=== PATIENT | male | born 1960 | race Caucasian/White ===

== ENCOUNTER 2018-03-08 01:49 | Outpatient (CLI) | payer BC, SELFPAY ==
[2018-03-08 13:06] LABS: HCT 43.2 % (40.0-50.0); HGB 14.5 g/dL (13.5-17.5); Mean Corp. HGB Concentration 33.6 g/dL (32.0-36.0); Mean Corpuscular Hemoglobin 28.3 pg (27.0-33.0); Mean Corpuscular Volume 84.4 fL (80-95); Mean Platelet Volume 11.7 fL (8.0-11.0); Platelet Count 196 x1000/uL (130-400); RBC 5.12 m/cumm (4.50-6.00); RBC Distribution Width 12.7 % (11.8-14.1); White Blood Cell Count 6.08 k/cumm (4.4-10.8)
[2018-03-08 13:44] LABS: Ferritin 78 ng/mL (8-388)
[2018-03-09 09:56] LABS: PSA, Screening 0.7 ng/ml (0-3.5)
== END 2018-03-08 02:09 ==
PROVIDERS: PCP Emergency Medicine; Visit Provider Emergency Medicine
DX: E03.9 Hypothyroidism, unspecified (principal); D64.9 Anemia, unspecified
CPT/HCPCS: 36415; 84153; 85027; 82728; 84443

== ENCOUNTER 2019-03-04 09:35 | Outpatient (CLI) | payer BC, SELFPAY ==
[2019-03-04 11:15] LABS: Ferritin 27 ng/mL (26-388); TSH (W/Ref FT4) 1.07 uIU/mL (0.36-3.74)
[2019-03-07 10:19] LABS: PSA, Screening 0.7 ng/mL (0.0-3.5)
== END 2019-03-04 09:55 ==
PROVIDERS: PCP Emergency Medicine; Visit Provider Internal Medicine
DX: D45 Polycythemia vera (principal); R00.2 Palpitations; R10.9 Unspecified abdominal pain
CPT/HCPCS: 36415; 84153; 82728; 84443

== ENCOUNTER 2019-03-08 00:54 | Outpatient (CLI) | payer BC, SELFPAY ==
--- NOTE | 2019-03-08 08:56 | DI.US_ITS ---
EXAM: US ABDOMEN CLINICAL HISTORY: pain R10.9 ABDOMINAL PAIN TECHNIQUE: Ultrasound abdomen performed using standard protocol. COMPARISON: No exams were available for comparison FINDINGS: LIVER: Liver measures 14 cm in length and shows diffusely increased echogenicity, consistent with fat ty infiltration. No focal liver lesions are seen. GALLBLADDER: No evidence of cholelithiasis. No evidence of wall thickening. No pericholecystic fluid identified. KIDNEYS: Kidneys are symmetric in size. No evidence of renal calculi. No evidence of hydronephrosis. No renal mass or cyst identified. BILIARY SYSTEM: No intrahepatic or extrahepatic biliary ductal dilation. ST'S SIGN: Negative. PANCREAS: Normal where visualized. SPLEEN: Not enlarged. ABDOMINAL AORTA AND IVC: Visualized portions normal caliber. ASCITES: None seen. IMPRESSION: Hepatic steatosis. No acute abnormality.
== END 2019-03-08 01:14 ==
PROVIDERS: PCP Emergency Medicine; Visit Provider Internal Medicine
DX: R10.9 Unspecified abdominal pain (principal); K76.0 Fatty (change of) liver, not elsewhere classified
CPT/HCPCS: 76700

== ENCOUNTER 2019-05-10 00:59 | Outpatient (CLI) | payer BC, SELFPAY ==
[2019-05-10] MEDS: Omnipaque 350 MG/ML 50 ML BTL PO (07:33)
[2019-05-10 07:46] LABS: BUN 17 mg/dL (7-18)
--- NOTE | 2019-05-10 08:28 | DI.CT_ITS ---
EXAM: CT ABDOMEN PELVIS W CLINICAL HISTORY: pain at Right edge of rectus muscle b/l arcuate li, ABD PAIN, UMBILICAL HERNIA, R1 0.9,K42.9 TECHNIQUE: Post IV and oral contrast. COMPARISON: No exams were available for comparison FINDINGS: Sternal wires are noted. A mitral valve prosthesis is seen. The lung bases are clear. The liver s hows mild to moderate diffuse fatty infiltration. There is a cyst in the upper left lobe. The gallb ladder, spleen, pancreas, kidneys and adrenals are unremarkable. No abdominal wall hernias are seen. The rectus muscles appear symmetric. The bladder and prostate are unremarkable. The aorta is norm al in diameter. IMPRESSION: Fatty infiltration of the liver. No abnormality is seen involving the rectus muscles.
[2019-05-10] MEDS: Breeza Beverage 473 ML BTL PO ×2 (08:35→08:36)
[2019-05-10] MEDS: Omnipaque 350 MG/ML 100 ML BTL IJ (08:36)
[2019-05-10] MEDS: Normal Saline - Diluent 50 ML VIAL IV (08:37)
[2019-05-11 12:02] LABS: Iron 55 ug/dL (65-175); Total Iron Binding Capacity 428 ug/dL (250-450); Transferrin Sat 13 % (20-55)
[2019-05-11 12:13] LABS: Ferritin 56 ng/mL (26-388)
[2019-05-11 15:25] LABS: ANA Interpretation Negative (Negative)
[2019-05-12 11:57] LABS: dsDNA Ab, IgG <12.3 IU/mL (<30.0)
[2019-05-12 13:01] LABS: RNP Ab, IgG 2.1 Units (<20.0); SS-A Antibody 2.3 Units (<20.0); Sm (Smith) Ab, IgG 1.6 Units (<20.0)
[2019-05-12 15:23] LABS: Smooth Muscle Ab Screen Negative (Negative)
[2019-05-13 10:04] LABS: Anti-DNase B Titer <81 U/mL (0 - 300)
== END 2019-05-10 01:19 ==
PROVIDERS: PCP Emergency Medicine; Visit Provider Surgery
DX: R10.9 Unspecified abdominal pain (principal); K76.0 Fatty (change of) liver, not elsewhere classified; K42.9 Umbilical hernia without obstruction or gangrene; Z95.2 Presence of prosthetic heart valve; K76.89 Other specified diseases of liver; D50.9 Iron deficiency anemia, unspecified; D50.8 Other iron deficiency anemias; I34.0 Nonrheumatic mitral (valve) insufficiency; M05.9 Rheumatoid arthritis with rheumatoid factor, unspecified; Z01.84 Encounter for antibody response examination
CPT/HCPCS: 84520; 86215; 74177; 82565; 82728; 83540; 83550; 85018; 86038; 86225; 86235; 86255; J3490; Q9967

== ENCOUNTER 2019-05-30 06:17 | Day surgery (SDC) | payer BC, SELFPAY ==
[2019-05-30 06:31] VITALS: BP 134/89; PULSE 80; RESP 16; TEMP 36.4; O2SAT 98
[2019-05-30] MEDS: Lactated Ringers 1,000 ML 100 ML IV (06:56)
--- NOTE | 2019-05-30 08:06 | W.COLOREPORT ---
Date of service: 05/30/19 Time of Service: 08:07 Colonoscopy Report Date of procedure: 05/30/19 Pre-op diagnosis general: CRC screen Post-op diagnosis procedure note: other (Few small scattered diverticula no consequence confined to the sigmoid colon) Procedure: ce Surgeon: Pat Baeza Anesthesia proc note operative: GETA Estimated blood loss (mL): 0 Pathology: none sent Complications: None Disposition: same day Prep: Miralax/Dulcolax Retraction Time: 10 Procedure Description: After informed consent was obtained the patient was taken to the procedure room and placed in a left decubitous position. Monitors were applied and a time out was done. The patients name, date of , procedure, allergies to medications and metal in their body was reviewed. The patient was then sedated. Once sedated and comfortable a rectal exam was done. External exam was normal. Internal exam revealed a normal sphincter tone and no palpable masses. The scope was then introduced and retrofelexed. no internal hemorrhoids were identified. The scope was then advanced to the cecum w/out difficulty. The TI and appendiceal orifice were identified. The prep was good. The scope was then slowly retracted over 10 minutes back into the rectum. Polyps were removed at no polyps or AVMs. The mucosa is pink and healthy. There are a few small scattered diverticula confined to the sigmoid colon. There is no signs of active bleeding or infection. The scope was removed and the patient was woken up and taken back to Same day surgery in stable condition. The patient tolerated the procedure well and there were no immediate complications. Follow up: The patient should follow up in 10 years unless they develop changes in bowel habits or other new gastrointestinal complaints.
--- NOTE | 2019-05-30 08:08 | W.PM.DSUDISC ---
Discharge Plan Disposition Patient Disposition: HOME Condition: Good Discharge Details Reason For Visit: colon scope Attending Provider: Pat Baeza Primary Care Provider: David Shaffer Home Meds and New Rx's Prescriptions: No Action amoxicillin 500 mg capsule 3,000 mg PO DIRECTED Qty: 20 RF: 1 Poly-Iron 150 Forte 150-25-1 mg-mcg-mg capsule 1 cap PO DAILY Qty: 90 RF: 3 levothyroxine [Synthroid] 88 mcg tablet 88 mcg PO DAILY Qty: 90 RF: 3 ascorbic acid (vitamin C) [Vitamin C] 500 MG tablet 500 mg PO DAILY RF: 0 lorazepam [Ativan] 1 MG tablet 1 mg PO DIRECTED Qty: 12 RF: 1 Xeljanz 5 MG tablet 5 mg PO BID RF: 0 polyethylene glycol 3350 17 gram/dose powder 238 g PO ONCE Qty: 238 RF: 0 bisacodyl [Dulcolax (bisacodyl)] 5 mg tablet,delayed release (DR/EC) 5 mg PO ONCE Qty: 4 RF: 0 Multi-Vitamin HP/Minerals Capsule 1 cap PO DAILY RF: 0 Discharge Instructions Additional Instructions: Findings: few small scattered divertic essential normal cont. Iron supplements if right sided pain b/c worse- call my office and will schedule HIDA scan Follow up:repeat 10 years time Please call if you develop: fevers >101.5 Nausea or Vomiting Abdominal pain that is not transient DAY SURGERY UNIT POST COLONOSCOPY INSTRUCTIONS 1. Because there will be medication in your system for the next 24 hours, you may feel a little sleepy. Your coordination will be affected. Therefore: a. Do not drive or operate dangerous equipment for 24 hours. b. Do not drink alcohol beverages for 24 hours (not even beer). c. Plan to go home and rest for the day. 2. Generally there are no restrictions on your activity after a day or so has gone by, but you may feel a bit fatigued for a few days. 3 After you arrive home you may have a light meal and return to a normal diet as you can tolerate it without feeling sick to your stomach. 4. After surgery, you may feel pain or discomfort. This should be only transient, but if it persists please contact your doctor. 5. If there are any questions regarding the findings of your procedure, please feel free to contact your doctor. 6. If you are unable to contact your doctor with a problem, contact the hospital at [phone]. 3. Continue all your regular medications unless directed otherwise. I understand the above instructions and have no questions. Signature of Patient or Responsible Adult Escort Date/Time Name of Responsible Adult Escort Signature of Nurse Date/Time Activity:: No lifting over 20 pounds or strenuous activity x24 hours. Diet:: Small light meals x24 hours Discharge Orders Discharge Orders: Discharge Order (Routine); Ordered 05/30/19 Ordered By: Pat Baeza DS: Diagnosis Discharge Diagnosis (1) Iron deficiency anemia: Status: Acute
[2019-05-30] MEDS: Normal Saline 1,000 ML 80 ML IV (08:30)
[2019-05-30] MEDS: IRON SUCROSE COMPLEX 200 MG in Normal Saline 100 ML 400 MG IVPB (08:52)
[2019-05-30 09:35] VITALS: BP 120/72; PULSE 67; RESP 16; TEMP 37; O2SAT 97
== END 2019-05-30 09:55 | disposition home or self-care (01) ==
PROVIDERS: PCP Emergency Medicine; Visit Provider Surgery
PROC: 0DJD8ZZ Inspection of Lower Intestinal Tract, Via Natural or Artificial Opening Endoscopic (ICD-10-PCS; CPT 45378; principal; 2019-05-30 07:30)
DX: Z12.11 Encounter for screening for malignant neoplasm of colon (principal); D50.9 Iron deficiency anemia, unspecified; K57.30 Diverticulosis of large intestine without perforation or abscess without bleeding
CPT/HCPCS: 45378; 96365; J1756; J2001

== ENCOUNTER 2019-09-06 01:53 | Outpatient (CLI) | payer BC, SELFPAY ==
[2019-09-06 14:12] LABS: HGB 15.2 g/dL (13.5-17.5); Mean Corp. HGB Concentration 35.3 g/dL (32.0-36.0); Mean Corpuscular Hemoglobin 29.6 pg (27.0-33.0); Mean Corpuscular Volume 83.7 fL (80-95); Mean Platelet Volume 11.1 fL (8.0-11.0); Platelet Count 235 x1000/uL (130-400); RBC 5.14 m/cumm (4.50-6.00); RBC Distribution Width 12.5 % (11.8-14.1); White Blood Cell Count 6.14 k/cumm (4.4-10.8)
[2019-09-06 15:04] LABS: Ferritin 80 ng/mL (26-388)
[2019-09-06 15:06] LABS: Iron 151 ug/dL (65-175); Total Iron Binding Capacity 388 ug/dL (250-450); Transferrin Sat 39 % (20-55)
[2019-09-06 15:14] LABS: TSH 0.34 uIU/mL (0.36-3.74)
== END 2019-09-06 02:13 ==
PROVIDERS: PCP Emergency Medicine; Visit Provider Emergency Medicine
DX: D50.9 Iron deficiency anemia, unspecified (principal); E03.9 Hypothyroidism, unspecified; I34.0 Nonrheumatic mitral (valve) insufficiency
CPT/HCPCS: 36415; 85027; 82728; 83540; 83550; 84443

== ENCOUNTER 2019-09-06 01:57 | Outpatient (CLI) | payer BC, SELFPAY ==
--- NOTE | 2019-09-09 09:01 | W.HOLTRPT ---
Date of service: 09/09/19 Time of Service: 09:01 Holter Monitor Report Holter Monitor Note: The patient underwent Holter monitoring for a period of 1 day 17 hours and 56 minutes Rhythm throughout was sinus. Average heart rate was 77 bpm, minimum 55 and peak 110. There was no atrial fibrillation. There were rare atrial premature beats There were frequent ventricular ectopic beats, 7.2% of total. There were rare couplets and 2 triplets. There were were 2 runs of accelerated idioventricular rhythm, 13 and 14 beats in duration, rate 89 There were no pauses. There was no significant bradycardia
== END 2019-09-06 02:17 ==
PROVIDERS: PCP Emergency Medicine; Visit Provider Emergency Medicine
DX: I34.0 Nonrheumatic mitral (valve) insufficiency (principal); D50.9 Iron deficiency anemia, unspecified
CPT/HCPCS: 93225

== ENCOUNTER 2019-09-08 15:36 | Outpatient (CLI) | payer BC, SELFPAY | END 2019-09-08 15:56 | PROVIDERS: PCP Emergency Medicine; Visit Provider Emergency Medicine | DX: I47.1 Supraventricular tachycardia (principal); I34.0 Nonrheumatic mitral (valve) insufficiency; D50.9 Iron deficiency anemia, unspecified | CPT/HCPCS: 93226 ==

== ENCOUNTER 2019-10-18 13:28 | Outpatient (CLI) | payer BC, SELFPAY ==
--- NOTE | 2019-10-18 13:15 | RT.EKG_ITS ---
APPROVED REPORT Exam: Resting ECG Patient Location: O HR:82 bpm ECG Measurements Heart Rate 82 AXIS NJ 182 P 50 QRSd 102 QRS 38 QT 366 T 61 QTc 429 <Conclusion> Age and gender not entered, assume 51 yo male for purpose of ECG interpretation Sinus rhythm...normal P axis, V-rate 60- 99 Ventricular premature complex...V complex w/ short R-R interval Probable left atrial enlargement...P >50mS, <-0.10mV V1
== END 2019-10-18 13:48 ==
PROVIDERS: PCP Emergency Medicine; Visit Provider Internal Medicine Cardiovascular Disease
DX: I49.9 Cardiac arrhythmia, unspecified (principal)

== ENCOUNTER 2019-11-23 02:07 | Outpatient (CLI) | payer BC, SELFPAY ==
--- NOTE | 2019-11-23 13:58 | DI.US_ITS ---
APPROVED REPORT EXAM: Comprehensive 2D, Doppler, and color-flow Echocardiogram Patient Location: Out-Patient Drier Attendant: Amanda Johnson RDCS (AE) Indications: Mitral Valve Repair Other Information Study Quality: Good Conclusion Left Ventricle : The left ventricle is normal size. The left ventricular systolic function is normal. The left ventricular ejection fraction is within the normal range. There is normal left ventricular wall thickness. There is normal LV segmental wall motion. The left ventricular diastolic function is normal. LVEF is 60%. Right Ventricle : The right ventricle is normal size. The right ventricular systolic function is norm al. The RVSP is 30.6 mmHg. Atria : The left atrium size is normal. The right atrium size is normal. Aortic Valve : The aortic valve is normal in structure. Aortic valve is trileaflet. There is no aorti c valvular stenosis. No aortic regurgitation is present. Mitral Valve : Mitral annuloplasty changes are present. No evidence of mitral valve stenosis. Trace m itral regurgitation. Great Vessels : The aortic root is normal in size. The ascending aorta is normal in size. Aortic arch is normal in caliber. IVC is normal in size and collapses >50% with inspiration. There is no prior study available for comparison. Wall motion Left Ventricle The left ventricle is normal size. The left ventricular systolic function is normal. The left ventric ular ejection fraction is within the normal range. There is normal left ventricular wall thickness. T here is normal LV segmental wall motion. The left ventricular diastolic function is normal. There is no ventricular septal defect visualized. LVEF is 60%. Right Ventricle The right ventricle is normal size. The right ventricular systolic function is normal. The RVSP is 30 .6 mmHg. Atria The left atrium size is normal. The right atrium size is normal. The interatrial septum is intact wit h no evidence for an atrial septal defect. Aortic Valve The aortic valve is normal in structure. Aortic valve is trileaflet. There is no aortic valvular sten osis. No aortic regurgitation is present. Mitral Valve Mitral annuloplasty changes are present. No evidence of mitral valve stenosis. Trace mitral regurgita tion. Tricuspid Valve The tricuspid valve is normal in structure. There is no tricuspid valve stenosis. Mild tricuspid regu rgitation. Pulmonic Valve The pulmonary valve is normal in structure. There is no pulmonic valvular stenosis. Moderate pulmonic regurgitation. Great Vessels The aortic root is normal in size. The ascending aorta is normal in size. Aortic arch is normal in ca liber. IVC is normal in size and collapses >50% with inspiration. Pericardium There is no pericardial effusion. 2D Dimensions IVSD d PLAX 0.94 cm M: 0.6-1.2 LV Vol A2C d MOD 107.5 mL LVPW d PLAX 0.93 cm M: 0.6 - 1.2 LV Vol A4C d MOD 141.4 mL LVID d PLAX 5.38 cm M: 4.2 - 5.8 LA vol/ BSA A2C s A-L 24.8 mL/m2 LVDs 3.80 cm M: 2.5 - 4.0 LA vol/ BSA A4C s A-L 21.5 mL/m2 Ao Root d 3.52 cm M: 3.1 - 3.7 LA Vol/ BSA Biplane s A-L 24.0 mL/m2 RA Area A4C 17.71 cm2 LA Area A4C s MOD 16.98 cm2 RA Vol/ BSA A4C s A-L 24.9 mL/m2 LA Area A2C s MOD 18.99 cm2 Ao Asc Diam d 3.25 cm M: 2.6 - 3.4 LV EF A4C MOD 57.9 % LV EF Teichholz 55.3 % LV EF A2C MOD 63.4 % LVEF (Barrow's) 60.61 % M: 52 - 72 LV EF Biplane MOD 60.6 % LV Volume 90.80 mL M: 62 - 150 SV 74.86 mL LV Volume Index 42.83 mL/m2 M: 34 - 74 SV Index 35.21 mL/m2 LV Vol Biplane MOD 123.5 mL FS 29.05 % LV Diastology MV E' medial 0.086 (>0.07 m/s) E/A Ratio 0.9 LV E/e MED 14.90 (<14) MV E Vmax 1.29 (0.4-1.3 m/s) MV E' lateral 0.102 (>0.1 m/s) MV A Vmax 1.45 (0.4-1.3 m/s) LV E/e LAT 12.65 (<14) MV E/A Ratio 0.87 MV E/E' medial 14.92 MV E/E' lateral 12.66 Aortic Valve LVOT Area 3.63 cm2 AoV Area Vmax 3.02 cm2 LVOT Vmax 1.13 m/s AoV Area/ BSA (Vmax) 1.42 cm2/m2 LVOT Mean Rj. 0.74 m/s BREANNE Mean Rj. 2.91 cm2 LVOT Peak Grad 5.1 mmHg BREANNE Mean Rj. Index 1.37 cm2/m2 LVOT Mean Grad 2.6 mmHg LVOT VTI 0.247 m LVOT Diam s 2.15 cm AoV Vmax 1.36 m/s Velocity Ratio 0.83 AoV Mean Rj. 0.92 m/s AoV Peak Grad 7.4 mmHg LVOT SV 89.79 mL AoV Mean Grad 3.7 mmHg AoV VTI 0.312 m AoV Area VTI 2.88 cm2 AoV Area/ BSA (VTI) 1.35 cm/m2 Mitral Valve MV DT 283 (160-240 msec) MV PHT 82 msec MV Area PHT 2.68 cm2 MV VTI 0.588 m MV Area VTI 1.53 (4.0-6.0 cm2) Pulmonary Valve PV Vmax 1.42 (0.5-1.5 m/s) RVOT Peak Gr. 1.22 mmHg PV Peak Grad 8.0 mmHg RVOT Mean Gr. 0.60 mmHg PV Mean Grad 4.1 mmHg RVOT VTI 0.097 m PV VTI 0.272 m RVOT Vmax 0.55 m/s Tricuspid Valve TR Peak Grad 27.6 mmHg TR Vmax 2.63 m/s RA Pressure 3.00 mmHg RVSP (TR) 30.6 mmHg
== END 2019-11-23 02:27 ==
PROVIDERS: PCP Emergency Medicine; Visit Provider Internal Medicine Cardiovascular Disease
DX: Z95.4 Presence of other heart-valve replacement (principal); Z98.890 Other specified postprocedural states
CPT/HCPCS: 93306

== ENCOUNTER 2020-01-09 03:06 | Outpatient (CLI) | payer BC, SELFPAY ==
[2020-01-09 09:10] LABS: Abs Immature Grans 0.02 10^3/uL (0.0-0.06); Absolute Basophil Count 0.02 10^3/uL (0.0-0.2); Absolute Eosinophil Count 0.04 10^3/uL (0.0-0.7); Absolute Lymphocyte Count 1.24 10^3/uL (1.2-3.4); Absolute Monocyte Count 0.48 10^3/uL (0.1-0.8); Absolute Neutrophil Count 3.58 10^3/uL (1.2-6.7); Basophils % 0.4; Eosinophils % 0.7; HCT 44.6 % (40.0-50.0); HGB 15.1 g/dL (13.5-17.5); Immature Grans % 0.4; MCH 28.8 pg (27.0-33.0); MCHC 33.9 % (32.0-36.0); MPV 10.8 fL (8.0-11.0); Monocytes % 8.9; Neutrophils % 66.6; Nucleated RBC 0 %; Platelet Count 207 10^3/uL (130-400); RBC 5.25 10^6/uL (4.36-5.78); RDW 11.9 % (11.8-14.1); RDW-SD 36.1 fL; WBC 5.38 10^3/uL (4.4-10.8)
[2020-01-09 10:35] LABS: ALT 35 U/L (16-63); AST 32 U/L (15-37); Albumin 4.2 g/dL (3.4-5.0); Alkaline Phosphatase 102 U/L (46-116); Anion Gap 5.7 mmol/L (3-11); BUN 16 mg/dL (7-18); Bilirubin, Total 0.9 mg/dL (0.2-1.0); CO2 29.3 mmol/L (21.0-32.0); CREATININE 0.89 mg/dL (0.70-1.30); Calcium 9.3 mg/dL (8.5-10.1); Calculated LDL 146 mg/dL (<100); Chloride 106 mmol/L (98-107); Cholesterol 223 mg/dL (<200); Glucose 91 mg/dL (74-106); HDL Cholesterol 62 mg/dL (40-60); Potassium 4.2 mmol/L (3.5-5.1); Sodium 141 mmol/L (136-145); Total Protein 6.8 g/dL (6.4-8.2); Triglyceride 76 mg/dL (<150)
== END 2020-01-09 03:26 ==
PROVIDERS: PCP Emergency Medicine; Visit Provider Nurse Practitioner Family
DX: M05.79 Rheumatoid arthritis with rheumatoid factor of multiple sites without organ or systems involvement (principal); Z79.899 Other long term (current) drug therapy
CPT/HCPCS: 36415; 80053; 80061; 85025

== ENCOUNTER 2020-01-19 01:30 | Outpatient (CLI) | payer BC, SELFPAY ==
[2020-01-19 13:43] LABS: Hemoglobin A1C 5.4 % (<5.7)
[2020-01-19 14:29] LABS: ALT 31 U/L (16-63); AST 23 U/L (15-37); Albumin 4.1 g/dL (3.4-5.0); Alkaline Phosphatase 124 U/L (46-116); Anion Gap 6.8 mmol/L (3-11); BUN 13 mg/dL (7-18); Bilirubin, Total 0.5 mg/dL (0.2-1.0); CO2 31.2 mmol/L (21.0-32.0); CREATININE 0.88 mg/dL (0.70-1.30); Calcium 9.3 mg/dL (8.5-10.1); Chloride 104 mmol/L (98-107); Glucose 108 mg/dL (74-106); Potassium 4.2 mmol/L (3.5-5.1); Sodium 142 mmol/L (136-145); Total Protein 6.7 g/dL (6.4-8.2)
[2020-01-19 14:30] LABS: C-Reactive Protein < 0.05 mg/dL (0.0-0.3)
[2020-01-19 15:45] LABS: Vitamin B12 458 pg/mL (193-986)
[2020-01-20 15:31] LABS: Albumin 67.8 % (55.8-66.1); Comment (See Note); Total Protein 6.8 g/dL (6.3-8.2)
[2020-01-20 16:22] LABS: Immunotyping, Serum (See Note)
[2020-01-24 13:25] LABS: Methylmalonic Acid 0.19 nmol/mL (<=0.40)
== END 2020-01-19 01:50 ==
PROVIDERS: PCP Emergency Medicine; Visit Provider Emergency Medicine
DX: G62.9 Polyneuropathy, unspecified (principal)
CPT/HCPCS: 36415; 80053; 80186; 82607; 83036; 84165; 86140; 86320

== ENCOUNTER 2020-05-23 02:56 | Outpatient (CLI) | payer BC, SELFPAY ==
[2020-05-23 10:39] LABS: Abs Immature Grans 0.04 10^3/uL (0.0-0.06); Absolute Basophil Count 0.02 10^3/uL (0.0-0.2); Absolute Eosinophil Count 0.04 10^3/uL (0.0-0.7); Absolute Lymphocyte Count 1.27 10^3/uL (1.2-3.4); Absolute Monocyte Count 0.55 10^3/uL (0.1-0.8); Absolute Neutrophil Count 3.76 10^3/uL (1.2-6.7); Basophils % 0.4; Eosinophils % 0.7; HCT 44.4 % (40.0-50.0); Immature Grans % 0.7; Lymphocytes % 22.4; MCH 29.1 pg (27.0-33.0); MCHC 33.8 % (32.0-36.0); MPV 11.2 fL (8.0-11.0); Monocytes % 9.7; Neutrophils % 66.1; Nucleated RBC 0 %; Platelet Count 206 10^3/uL (130-400); RBC 5.16 10^6/uL (4.36-5.78); RDW 11.9 % (11.8-14.1); RDW-SD 37.9 fL; WBC 5.68 10^3/uL (4.4-10.8)
[2020-05-23 11:28] LABS: ALT 32 U/L (16-63); AST 20 U/L (15-37); Albumin 4.1 g/dL (3.4-5.0); Alkaline Phosphatase 123 U/L (46-116); Anion Gap 8.2 mmol/L (3-11); BUN 17 mg/dL (7-18); Bilirubin, Total 0.5 mg/dL (0.2-1.0); CO2 28.8 mmol/L (21.0-32.0); Calcium 9.8 mg/dL (8.5-10.1); Chloride 104 mmol/L (98-107); Glucose 129 mg/dL (74-106); Potassium 4.5 mmol/L (3.5-5.1); Sodium 141 mmol/L (136-145); Total Protein 6.9 g/dL (6.4-8.2)
[2020-05-24 10:43] LABS: Hepatitis C Ab w Rflx HCV PCR Negative (Negative)
[2020-05-24 11:06] LABS: HBs Antibody, Quant <3.1 mIU/mL (See Note); Hepatitis B Surface Ab Negative (See Note)
[2020-05-24 11:12] LABS: Hepatitis B Surface Ag Negative (Negative)
[2020-05-24 11:52] LABS: Hep B Core Antibody Negative (Negative)
[2020-05-25 15:43] LABS: TB Interpretation Negative (Negative); TB1 Ag minus Nil 0.02 IU/ml; TB2 Ag minus Nil 0.02 IU/mL
== END 2020-05-23 02:57 | disposition home or self-care (01) ==
LOC: LBO 02:57
PROVIDERS: PCP Emergency Medicine; Visit Provider Nurse Practitioner Family
DX: M05.79 Rheumatoid arthritis with rheumatoid factor of multiple sites without organ or systems involvement; Z79.899 Other long term (current) drug therapy
CPT/HCPCS: 36415; 80053; 86704; 86706; 86803; 87340; 85025; 86480

== ENCOUNTER 2020-08-28 18:43 | Outpatient (REF) | payer BC, SELFPAY ==
[2020-08-28 13:49] LABS: Ferritin 64 ng/mL (26-388); TSH 0.85 uIU/mL (0.36-3.74)
[2020-08-28 23:15] LABS: PSA, Screening 0.6 ng/mL (0.0-3.5)
== END 2020-08-28 18:44 | disposition home or self-care (01) ==
LOC: LBN 18:43
PROVIDERS: PCP Emergency Medicine; Visit Provider Emergency Medicine
DX: D50.9 Iron deficiency anemia, unspecified (principal); E03.9 Hypothyroidism, unspecified; Z12.5 Encounter for screening for malignant neoplasm of prostate
CPT/HCPCS: 84153; 82728; 84443

== ENCOUNTER 2020-09-04 03:48 | Outpatient (RCR) | payer BC, SELFPAY ==
--- NOTE | 2020-09-04 09:00 | HOLTER_ITS ---
APPROVED REPORT Conclusion There is a 48-hour monitor ordered for indication of dizziness. The patient was in normal sinus rhythm for the majority of the recording with an average heart rate o f 79 bpm. There were 5 episodes of NSVT with the longest lasting 4 beats. There were frequent (9%) PVCs. There are 121 episodes of supraventricular tachycardia with the longest lasting 14 beats. There were rare PACs. There were no episodes of atrial fibrillation, no pauses greater than 3 seconds and no evidence of hi gh degree heart block. There was 1 patient triggered event associated with PVCs.
== END 2020-09-10 23:59 | disposition home or self-care (01) ==
LOC: RT 03:48
PROVIDERS: PCP Emergency Medicine; Visit Provider Emergency Medicine
DX: R42 Dizziness and giddiness (principal)
CPT/HCPCS: 93225; 93226

== ENCOUNTER 2021-03-14 02:13 | Outpatient (CLI) | payer BC, SELFPAY ==
[2021-03-14 09:01] LABS: HCT 40.2 % (40.0-50.0); HGB 13.7 g/dL (13.5-17.5); MCHC 34.1 % (32.0-36.0); MPV 10.9 fL (8.0-11.0); Nucleated RBC 0 %; Platelet Count 150 10^3/uL (130-400); RBC 4.73 10^6/uL (4.36-5.78); RDW 12.3 % (11.8-14.1); RDW-SD 37.8 fL; WBC 4.46 10^3/uL (4.4-10.8)
[2021-03-14 09:15] LABS: Absolute Lymphocyte Count 2.45 10^3/uL (1.2-3.4); Absolute Monocyte Count 0.85 10^3/uL (0.1-0.8); Absolute Neutrophil Count 1.16 10^3/uL (1.2-6.7); Atypical Lymphocytes % 11; Diff Comment Manual Differential; RBC Morphology Normal
[2021-03-14 10:01] LABS: ALT 35 U/L (16-63); AST 24 U/L (15-37); Albumin 4.1 g/dL (3.4-5.0); Alkaline Phosphatase 119 U/L (46-116); Anion Gap 7.1 mmol/L (3-11); BUN 19 mg/dL (7-18); Bilirubin, Total 0.6 mg/dL (0.2-1.0); CO2 29.9 mmol/L (21.0-32.0); Calcium 9.3 mg/dL (8.5-10.1); Chloride 106 mmol/L (98-107); Glucose 85 mg/dL (74-106); Potassium 4.4 mmol/L (3.5-5.1); Sodium 143 mmol/L (136-145); Total Protein 6.8 g/dL (6.4-8.2)
[2021-03-15 09:22] LABS: HBs Antibody, Quant <3.1 mIU/mL (See Note); Hepatitis B Surface Ab Negative (See Note)
[2021-03-15 09:30] LABS: Hepatitis B Surface Ag Negative (Negative)
[2021-03-15 10:19] LABS: Hepatitis C Ab w Rflx HCV PCR Negative (Negative)
[2021-03-15 10:25] LABS: Hep B Core Antibody Negative (Negative)
[2021-03-18 13:26] LABS: TB Interpretation Negative (Negative); TB1 Ag minus Nil 0.06 IU/ml; TB2 Ag minus Nil 0.08 IU/mL
== END 2021-03-14 02:14 | disposition home or self-care (01) ==
LOC: LBO 02:14
PROVIDERS: Orthopaedic Surgery; PCP Emergency Medicine; Visit Provider Physician Assistant
DX: Z79.899 Other long term (current) drug therapy (principal); M05.79 Rheumatoid arthritis with rheumatoid factor of multiple sites without organ or systems involvement; Z51.81 Encounter for therapeutic drug level monitoring
CPT/HCPCS: 36415; 80053; 86704; 86706; 86803; 87340; 85025; 86480

== ENCOUNTER 2021-03-19 13:37 | Outpatient (CLI) | payer BC, SELFPAY ==
--- NOTE | 2021-03-19 13:30 | RT.EKG_ITS ---
APPROVED REPORT Exam: Resting ECG Reason for Exam: chest pain Patient Location: O HR:81 bpm ECG Measurements Heart Rate 81 AXIS OR 179 P 53 QRSd 102 QRS 27 QT 373 T 58 QTc 428 Conclusion Sinus rhythm...normal P axis, V-rate 60- 99 Multiform ventricular premature complexes...short R-R, variable morphology Probable left atrial enlargement...P >50mS, <-0.10mV V1
== END 2021-03-19 13:38 | disposition home or self-care (01) ==
LOC: DI.CM 13:38
PROVIDERS: PCP Emergency Medicine; Visit Provider Family Medicine
DX: R07.89 Other chest pain (principal)
CPT/HCPCS: 93010

== ENCOUNTER 2021-03-25 15:35 | Outpatient (CLI) | payer BC, SELFPAY ==
--- NOTE | 2021-03-25 15:00 | DI.RAD_ITS ---
Exam(s) XR RIBS LT W PA LAT CHEST EXAM: XR RIBS LT W PA LAT CHEST CLINICAL HISTORY: recent chest wall pain, left lateral,r07.89, strain injury yesterday. TECHNIQUE: 2D digital imaging was performed. COMPARISON: No exams were available for comparison FINDINGS: Sternotomy wires prosthetic mitral valve noted. Mediastinum not widened. Heart size normal. Lungs are clear. No infiltrates nor pleural effusions. There is no pulmonary edema. Left ribs (three views): There are no fractures in left rib cage evident on 3. No rib lesions eviden t. No pneumothorax. IMPRESSION: Prosthetic mitral valve. Sternotomy wires. No acute pulmonary findings. No left rib fractures identified. DATA REPOSITORY: RADIATION DOSE DELIVERED:
== END 2021-03-25 15:55 ==
PROVIDERS: PCP Emergency Medicine; Visit Provider Family Medicine
DX: R07.89 Other chest pain (principal)
CPT/HCPCS: 71046; 71100

== ENCOUNTER 2021-04-23 01:07 | Outpatient (CLI) | payer BC, SELFPAY ==
--- NOTE | 2021-04-23 07:15 | DI.CT_ITS ---
Exam(s) CT THORACIC SPINE WO CT CHEST W EXAM: CT CHEST W CLINICAL HISTORY: bone pain,chest pain worse with breathing,r07.1 TECHNIQUE: CT examination of the chest was performed with intravenous infusion of 70 cc of Omnipaque 350. additional dedicated multi slice CT imaging of the thoracic spine was obtained. COMPARISON: CT CT ABDOMEN PELVIS W from 05/10/2019 CR XR RIBS LT W PA LAT CHEST from 03/25/2021 FINDINGS: The lungs are clear. There is no evidence of pleural effusion. There is no evidence of pulmonary embolic disease. There is unremarkable appearance of the thoracic aorta and major branches with no evidence of aneurysm or dissection. There is no mediastinal or hilar adenopathy. Tracheobronchial tree appears intact. No axillary or supraclavicular adenopathy. Cardiac size is within normal limits. Note is made of a mitral valve prosthesis. Visualized portions of the liver, spleen, adrenals, and kidneys are unremarkable. There are multiple areas of decreased attenuation in thoracic vertebral bodies which are somewhat mita picious for lytic lesions. These findings are most prominent at T3 and T6 vertebral bodies. Discret e lytic changes are difficult to confirm due to the degree of bony demineralization present. I would suggest that thoracic spine MRI including post contrast examination be obtained to evaluate the poss ibility of multiple myeloma or other multifocal lytic process period. IMPRESSION: Multiple questionable areas of lytic change in thoracic vertebral bodies, correlation with thoracic s pine MRI including pre and postcontrast imaging is requested.. RADIATION DOSE DELIVERED: 560.75mGy.cm Total DLP 560.75mGy.cm Total DLP 12.52mGy CTDIvol
[2021-04-23 12:23] LABS: ESR 1 mm/hr (0-20)
[2021-04-23 12:43] LABS: ALT 28 U/L (16-63); AST 28 U/L (15-37); Albumin 4.2 g/dL (3.4-5.0); Alkaline Phosphatase 117 U/L (46-116); Bilirubin, Direct 0.1 mg/dL (0.0-0.2); Bilirubin, Total 0.5 mg/dL (0.2-1.0); C-Reactive Protein 0.31 mg/dL (0.0-0.3); CREATININE 1.1 mg/dL (0.70-1.30); GGT 25 U/L (15-85); Total Protein 7.6 g/dL (6.4-8.2)
[2021-04-23] MEDS: Omnipaque 350 MG/ML 100 ML BTL 70 ML IJ (14:04)
[2021-04-24 12:17] LABS: Albumin 62.5 % (55.8-66.1); Comment (See Note); Monoclonal Spike 8.1 % (None Seen)
[2021-04-24 14:53] LABS: Immunotyping, Serum (See Note)
== END 2021-04-23 01:27 ==
PROVIDERS: PCP Emergency Medicine; Visit Provider Emergency Medicine
DX: M89.8X8 Other specified disorders of bone, other site (principal); R07.1 Chest pain on breathing; Z13.88 Encounter for screening for disorder due to exposure to contaminants; M85.88 Other specified disorders of bone density and structure, other site; R93.89 Abnormal findings on diagnostic imaging of other specified body structures
CPT/HCPCS: 80076; 85652; 71260; 72128; 82565; 82977; 84165; 86140; 86320; J3490

== ENCOUNTER 2021-05-03 00:40 | Outpatient (CLI) | payer BC, SELFPAY ==
--- NOTE | 2021-05-03 06:45 | DI.MRI_ITS ---
Exam(s) MR THORACIC SPINE WO/W EXAM: MR THORACIC SPINE WO/W CLINICAL HISTORY: lytic lesions on CT of thoracic spine,M89.9. TECHNIQUE: Multiplanar multisequence MRI of the Thoracic spine was performed. CONTRAST MATERIAL: IV Contrast: 18 mL of Dotarem contrast administered. COMPARISON: CT CT ABDOMEN PELVIS W from 05/10/[address] THORACIC SPINE WO from 04/23/[address] CHEST W from 04/23/2021 FINDINGS: At the T4 level, there is destruction with abnormal expansion to the surrounding soft tissues of the posterior elements from the left transverse process, involving both lamina and spinous process. Ther e is extension into the central canal with impingement on the cord. There is also invasion into the left neural foramen. The component which extends into the canal measures 4.6 cm in length by 10 mill imeters AP by 19 millimeters transverse. There is also invasion of proximal portion of the left 4th rib. There are mild compression fractures of T6 and T7. Within the T6 vertebral body there is some eviden ce of mass effect and mild retropulsion into the canal as well as right neural foramen. Abnormal enh ancement is seen in the left transverse process at this level. At the T8 level, there is invasion of the proximal portion of the left rib with invasion into the left neural foramen.. There are innumera ble other smaller foci of abnormal signal with abnormal enhancement within multiple vertebral bodies and posterior elements.. 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 The large st lesion is at T6 which extends into the central canal and left neural foramen and causes impingemen t on the spinal cord. DATA REPOSITORY:
[2021-05-03] MEDS: Normal Saline Flush 10 ML SYR IVP (09:52)
[2021-05-03] MEDS: Gadoterate meglumine 20 ML VIAL 18 ML IVP (09:53)
== END 2021-05-03 01:00 ==
PROVIDERS: PCP Emergency Medicine; Visit Provider Family Medicine
DX: M89.79 Major osseous defect, multiple sites; M48.54XA Collapsed vertebra, not elsewhere classified, thoracic region, initial encounter for fracture; M89.8X8 Other specified disorders of bone, other site
CPT/HCPCS: 72157

== ENCOUNTER 2021-06-17 03:45 | Outpatient (RCR) | payer BC, SELFPAY ==
[2021-06-17 08:42] LABS: HCT 37.1 % (40.0-50.0); HGB 12.5 g/dL (13.5-17.5); MCH 30.8 pg (27.0-33.0); MCHC 33.7 % (32.0-36.0); MCV 91.4 fL (80-95); MPV 11.7 fL (8.0-11.0); Nucleated RBC 0 %; Platelet Count 100 10^3/uL (130-400); RBC 4.06 10^6/uL (4.36-5.78); RDW 13.5 % (11.8-14.1); WBC 6.07 10^3/uL (4.4-10.8)
[2021-06-17 08:50] LABS: Absolute Eosinophil Count 0.24 10^3/uL (0.0-0.7); Absolute Lymphocyte Count 1.34 10^3/uL (1.2-3.4); Absolute Monocyte Count 0.55 10^3/uL (0.1-0.8); Atypical Lymphocytes % 4; Bands % 7; Diff Comment Manual Differential; Metamyelocytes % 3; Myelocytes % 1; RBC Morphology Normal
[2021-06-17 09:02] LABS: ALT 26 U/L (16-63); AST 15 U/L (15-37); Albumin 3.7 g/dL (3.4-5.0); Alkaline Phosphatase 138 U/L (46-116); BUN 11 mg/dL (7-18); Bilirubin, Total 0.6 mg/dL (0.2-1.0); CREATININE 1.1 mg/dL (0.70-1.30); Calcium 9.2 mg/dL (8.5-10.1); Chloride 107 mmol/L (98-107); Glucose 107 mg/dL (74-106); Potassium 3.5 mmol/L (3.5-5.1); Sodium 145 mmol/L (136-145); Total Protein 6.9 g/dL (6.4-8.2)
[2021-06-18 09:21] LABS: IgA <13 mg/dL (85-499); IgG 410 mg/dL (610-1,616); IgM <12 mg/dL (35-242); Kappa Free Light Chain 0.67 mg/dL (0.33-1.94)
[2021-06-18 14:19] LABS: Albumin 61.2 % (55.8-66.1); Comment (See Note); Monoclonal Spike 5.2 % (None Seen); Total Protein 6.1 g/dL (6.3-8.2)
== END 2021-07-11 23:59 | disposition home or self-care (01) ==
LOC: INF 03:45
PROVIDERS: PCP Family Medicine; Visit Provider Internal Medicine Hematology & Oncology
DX: C90.00 Multiple myeloma not having achieved remission (principal)
CPT/HCPCS: 36415; 80053; 82784; 83883; 84165; 85025

== ENCOUNTER 2021-06-26 02:54 | Outpatient (CLI) | payer BC, SELFPAY ==
[2021-06-26 08:37] LABS: Abs Immature Grans 0.08 10^3/uL (0.0-0.06); Absolute Basophil Count 0.01 10^3/uL (0.0-0.2); Absolute Eosinophil Count 0.01 10^3/uL (0.0-0.7); Absolute Lymphocyte Count 1.55 10^3/uL (1.2-3.4); Absolute Neutrophil Count 3.44 10^3/uL (1.2-6.7); Basophils % 0.2; Eosinophils % 0.2; HCT 34.3 % (40.0-50.0); HGB 11.4 g/dL (13.5-17.5); Immature Grans % 1.3; Lymphocytes % 25.5; MCH 31.1 pg (27.0-33.0); MCHC 33.2 % (32.0-36.0); MCV 93.7 fL (80-95); MPV 12.7 fL (8.0-11.0); Monocytes % 16.4; Neutrophils % 56.4; Nucleated RBC 0 %; Platelet Count 100 10^3/uL (130-400); RBC 3.66 10^6/uL (4.36-5.78); RDW 13.9 % (11.8-14.1); RDW-SD 47.6 fL; WBC 6.09 10^3/uL (4.4-10.8)
[2021-06-26 08:50] LABS: ALT 38 U/L (16-63); AST 18 U/L (15-37); Albumin 3.6 g/dL (3.4-5.0); Alkaline Phosphatase 135 U/L (46-116); Anion Gap 8.7 mmol/L (3-11); BUN 25 mg/dL (7-18); CO2 26.3 mmol/L (21.0-32.0); Calcium 8.4 mg/dL (8.5-10.1); Chloride 110 mmol/L (98-107); Glucose 103 mg/dL (74-106); Potassium 3.6 mmol/L (3.5-5.1); Sodium 145 mmol/L (136-145)
[2021-06-27 11:11] LABS: Albumin 65.5 % (55.8-66.1); Comment (See Note); Monoclonal Spike 1.6 % (None Seen); Total Protein 5.4 g/dL (6.3-8.2)
[2021-06-27 11:21] LABS: IgA <13 mg/dL (85-499); IgG 313 mg/dL (610-1,616); IgM <12 mg/dL (35-242); Kappa Free Light Chain 0.59 mg/dL (0.33-1.94)
== END 2021-06-26 02:55 | disposition home or self-care (01) ==
LOC: LBO 02:55
PROVIDERS: PCP Family Medicine; Visit Provider Internal Medicine Hematology & Oncology
DX: C90.00 Multiple myeloma not having achieved remission (principal)
CPT/HCPCS: 36415; 80053; 82784; 83883; 84165; 85025

== ENCOUNTER 2021-07-08 03:48 | Outpatient (CLI) | payer BC, SELFPAY ==
[2021-07-08 08:55] LABS: Abs Immature Grans 0.31 10^3/uL (0.0-0.06); Absolute Basophil Count 0.04 10^3/uL (0.0-0.2); Absolute Eosinophil Count 0.07 10^3/uL (0.0-0.7); Absolute Lymphocyte Count 0.86 10^3/uL (1.2-3.4); Absolute Monocyte Count 0.37 10^3/uL (0.1-0.8); Absolute Neutrophil Count 3.67 10^3/uL (1.2-6.7); Basophils % 0.8; Eosinophils % 1.3; HGB 11.5 g/dL (13.5-17.5); Immature Grans % 5.8; Lymphocytes % 16.2; MCH 31.2 pg (27.0-33.0); MCHC 32.9 % (32.0-36.0); MCV 94.9 fL (80-95); MPV 11.3 fL (8.0-11.0); Neutrophils % 68.9; Nucleated RBC 0 %; Platelet Count 101 10^3/uL (130-400); RBC 3.69 10^6/uL (4.36-5.78); RDW 14.3 % (11.8-14.1); RDW-SD 49.2 fL; WBC 5.32 10^3/uL (4.4-10.8)
[2021-07-08 09:07] LABS: ALT 26 U/L (16-63); AST 13 U/L (15-37); Albumin 3.8 g/dL (3.4-5.0); Alkaline Phosphatase 125 U/L (46-116); Anion Gap 7.3 mmol/L (3-11); BUN 16 mg/dL (7-18); Bilirubin, Total 0.6 mg/dL (0.2-1.0); CO2 28.7 mmol/L (21.0-32.0); Calcium 8.6 mg/dL (8.5-10.1); Chloride 108 mmol/L (98-107); Diff Comment Diff Reviewed; Glucose 106 mg/dL (74-106); Potassium 4.1 mmol/L (3.5-5.1); RBC Morphology Normal; Sodium 144 mmol/L (136-145); Total Protein 6.4 g/dL (6.4-8.2)
[2021-07-09 10:37] LABS: IgA <13 mg/dL (85-499); IgG 288 mg/dL (610-1,616); IgM <12 mg/dL (35-242); Kappa Free Light Chain 0.67 mg/dL (0.33-1.94); Lambda Free Light Chain 619.39 mg/dL (0.57-2.63)
[2021-07-09 13:18] LABS: Albumin 66.4 % (55.8-66.1); Comment (See Note); Monoclonal Spike 1.2 % (None Seen); Total Protein 5.8 g/dL (6.3-8.2)
== END 2021-07-08 03:49 | disposition home or self-care (01) ==
LOC: LBO 03:48
PROVIDERS: Emergency Medicine; PCP Family Medicine; Visit Provider Internal Medicine Hematology & Oncology
DX: C90.00 Multiple myeloma not having achieved remission (principal); M89.8X8 Other specified disorders of bone, other site; Z80.42 Family history of malignant neoplasm of prostate
CPT/HCPCS: 36415; 80053; 82784; 83883; 84153; 84165; 85025

== ENCOUNTER 2021-07-17 02:59 | Outpatient (CLI) | payer BC, SELFPAY ==
[2021-07-17 08:37] LABS: HCT 33.8 % (40.0-50.0); HGB 11.2 g/dL (13.5-17.5); MCH 31.2 pg (27.0-33.0); MCHC 33.1 % (32.0-36.0); MCV 94.2 fL (80-95); MPV 12.8 fL (8.0-11.0); RBC 3.59 10^6/uL (4.36-5.78); RDW 14.4 % (11.8-14.1); WBC 7.86 10^3/uL (4.4-10.8)
[2021-07-17 08:49] LABS: ALT 28 U/L (16-63); AST 14 U/L (15-37); Albumin 3.8 g/dL (3.4-5.0); Alkaline Phosphatase 119 U/L (46-116); Anion Gap 9.6 mmol/L (3-11); BUN 19 mg/dL (7-18); Bilirubin, Total 1.1 mg/dL (0.2-1.0); CO2 25.4 mmol/L (21.0-32.0); Calcium 8.3 mg/dL (8.5-10.1); Chloride 107 mmol/L (98-107); Glucose 99 mg/dL (74-106); Potassium 3.6 mmol/L (3.5-5.1); Sodium 142 mmol/L (136-145); Total Protein 5.9 g/dL (6.4-8.2)
[2021-07-17 09:11] LABS: Platelet Count 89 10^3/uL (130-400)
[2021-07-17 09:15] LABS: Abs Immature Grans 0.06 10^3/uL (0.0-0.06); Absolute Basophil Count 0.01 10^3/uL (0.0-0.2); Absolute Eosinophil Count 0.01 10^3/uL (0.0-0.7); Absolute Lymphocyte Count 1.39 10^3/uL (1.2-3.4); Absolute Monocyte Count 1.38 10^3/uL (0.1-0.8); Absolute Neutrophil Count 5.04 10^3/uL (1.2-6.7); Basophils % 0.1; Eosinophils % 0.1; Immature Grans % 0.8; Lymphocytes % 17.6; Monocytes % 17.5; Neutrophils % 63.9
[2021-07-18 10:27] LABS: IgA <13 mg/dL (85-499); IgG 263 mg/dL (610-1,616); IgM <12 mg/dL (35-242); Kappa Free Light Chain 0.65 mg/dL (0.33-1.94); Lambda Free Light Chain 181.89 mg/dL (0.57-2.63)
[2021-07-22 14:45] LABS: Albumin 68.6 % (55.8-66.1); Comment (See Note); Total Protein 5.5 g/dL (6.3-8.2)
[2021-07-24 14:49] LABS: Immunotyping, Serum (See Note)
== END 2021-07-17 03:00 | disposition home or self-care (01) ==
LOC: LBO 02:59
PROVIDERS: PCP Family Medicine; Visit Provider Internal Medicine Hematology & Oncology
DX: C90.00 Multiple myeloma not having achieved remission (principal)
CPT/HCPCS: 36415; 80053; 82784; 85027; 83883; 84165; 85007; 86320

== ENCOUNTER 2021-08-07 12:29 | Outpatient (CLI) | payer BC, SELFPAY ==
[2021-08-07 11:39] LABS: Abs Immature Grans 0.16 10^3/uL (0.0-0.06); Absolute Basophil Count 0.01 10^3/uL (0.0-0.2); Absolute Eosinophil Count 0.03 10^3/uL (0.0-0.7); Absolute Lymphocyte Count 1.02 10^3/uL (1.2-3.4); Absolute Monocyte Count 1.85 10^3/uL (0.1-0.8); Absolute Neutrophil Count 5.13 10^3/uL (1.2-6.7); Basophils % 0.1; Eosinophils % 0.4; HCT 36.1 % (40.0-50.0); HGB 12.1 g/dL (13.5-17.5); Lymphocytes % 12.4; MCH 30.6 pg (27.0-33.0); MCHC 33.5 % (32.0-36.0); MCV 91.2 fL (80-95); MPV 12.7 fL (8.0-11.0); Monocytes % 22.6; Neutrophils % 62.5; Platelet Count 149 10^3/uL (130-400); RBC 3.96 10^6/uL (4.36-5.78); RDW 13.5 % (11.8-14.1); RDW-SD 45.9 fL
[2021-08-07 11:57] LABS: ALT 23 U/L (16-63); AST 16 U/L (15-37); Albumin 3.9 g/dL (3.4-5.0); Alkaline Phosphatase 124 U/L (46-116); BUN 15 mg/dL (7-18); Bilirubin, Total 0.7 mg/dL (0.2-1.0); CREATININE 0.9 mg/dL (0.70-1.30); Calcium 8.7 mg/dL (8.5-10.1); Chloride 104 mmol/L (98-107); Glucose 113 mg/dL (74-106); Potassium 3.9 mmol/L (3.5-5.1); Sodium 138 mmol/L (136-145); Total Protein 6.1 g/dL (6.4-8.2)
[2021-08-07 12:23] LABS: Diff Comment Diff Reviewed; RBC Morphology Normal
[2021-08-08 10:46] LABS: IgA <13 mg/dL (85-499); IgG 256 mg/dL (610-1,616); IgM <12 mg/dL (35-242); Kappa Free Light Chain 0.61 mg/dL (0.33-1.94); Lambda Free Light Chain 164.33 mg/dL (0.57-2.63)
[2021-08-08 15:22] LABS: Albumin g/dL 3.9 g/dL (3.6-5.2); Comment (See Note); Total Protein 5.7 g/dL (6.3-8.2)
== END 2021-08-07 12:30 | disposition home or self-care (01) ==
LOC: LBO 12:33
PROVIDERS: PCP Family Medicine; Visit Provider Internal Medicine Hematology & Oncology
DX: C90.00 Multiple myeloma not having achieved remission (principal)
CPT/HCPCS: 36415; 80053; 82784; 83883; 84165; 85025

== ENCOUNTER 2021-08-07 13:28 | Emergency (ER) | payer BC, SELFPAY ==
--- NOTE | 2021-08-07 13:30 | RT.EKG_ITS ---
APPROVED REPORT Exam: Resting ECG Reason for Exam: sob Patient Location: E HR:89 bpm ECG Measurements Heart Rate 89 AXIS UT 193 P 38 QRSd 111 QRS 19 QT 379 T 59 QTc 462 Conclusion Sinus rhythm...normal P axis, V-rate 60- 99 Ventricular trigeminy...trigeminy string>6 w/ V complexes Probable left atrial enlargement...P >50mS, <-0.10mV V1 Physician: no stemi, pvc's present, qrs morphology unchanged from EKG on 03/19/21
[2021-08-07 13:33] VITALS: BP 153/92; PULSE 87; RESP 19; TEMP 36.5; O2SAT 98
--- NOTE | 2021-08-07 13:39 | W.ED.GENAD ---
Discharge Plan Disposition Patient Disposition: HOME Condition: Stable Discharge Details Clinical Impression: SOB (shortness of breath) Primary Care Provider: Ana M Mota ED Provider: Ean Urbano Home Meds and New Rx's Prescriptions: Continued amoxicillin 500 mg capsule 3,000 mg PO DIRECTED Qty: 20 1RF Rx Instructions: TAKE ALL 6 CAPS ONE HOUR PRIOR TO DENTIST duloxetine [Cymbalta] 30 mg capsule,delayed release(DR/EC) 60 mg PO DAILY Qty: 120 3RF Rx Instructions: for week one take one cap then go to two tabs daily a.m. levothyroxine [Synthroid] 88 mcg tablet 88 mcg PO DAILY Qty: 90 3RF zolpidem 10 mg tablet 10 mg PO QHS PRN (Reason: sleep) Qty: 20 0RF lorazepam [Ativan] 1 mg Tablet 1 mg PO DAILY 0RF Multi-Vitamin HP/Minerals Capsule 1 cap PO DAILY 0RF Discharge Instructions Instructions: Dyspnea (ED) Additional Instructions: Work-up in the ER does not reveal any obvious emergent process, specifically your CTA reveals no PE. Your oxygen level is appropriate here in the ER, lungs are clear to auscultation, and you are speaking in full sentences. Please watch for new or worsening symptoms and return to the ER for any concerns. Please contact both your oncology team and your primary care provider tomorrow to discuss your ER visit,ongoing symptoms, and need for outpatient reevaluation. Referral to pulmonology and/or cardiology may be indicated for further evaluation. Discharge Data Discharge Date/Time-TO BE ENTERED AT DEPARTURE: 08/07/21 15:29 Medical Decision Making This is a 61-year-old male, history of multiple myeloma, initiated his chemotherapy treatment on June 11, anxiety, peripheral neuropathy, mitral valve replacement, RA, presenting to the ER at the request of his oncologist for CTA of the chest to rule out PE. This test was attempted to be obtained as an outpatient but could not be authorized in time. Patient reports that overall he feels deconditioned, reports that the symptoms seem to be worse after his chemotherapy cycle which has happened over the past 2 months multiple times. He denies any fever, cough, chest pain. Denies any pain or swelling in his legs. Denies history of DVT or PE. CBC and CMP are already obtained earlier today. Given his presentation, will obtain EKG, troponin, magnesium, BNP, and obtain CTA of his chest. Clinically he appears well, nontoxic, lungs are clear to auscultation, no evidence of tachycardia, he is afebrile and O2 sats are 98% on room air. CBC and CMP from earlier today are grossly unremarkable. INR 1.1. D-dimer minimally elevated at 890. Magnesium 1.9 troponin less than 50, BNP 463. Clinically there are no signs of overt CHF. COVID-negative CTA of his chest reveals no evidence of pulmonary embolism. He does have cardiomegaly, his lungs are clear, worsening of spinal metastases. No obvious signs of effusion, edema, CHF. Benign work-up here in the ER, unfortunately no clear etiology of his ongoing dyspnea. Discussed work-up with patient. Overall he is relieved but obviously symptoms persist. At this time it is reasonable for discharge but we discussed the importance of outpatient follow-up through both his oncologist and primary care provider. Referral to pulmonology and/or cardiology may be indicated. Strict discharge and return precautions were provided. Patient understands, is agreeable to this plan, and has no additional questions or concerns upon discharge. This documentation was generated using [employer] system, please disregard any oddities of phrase or misspellings. Medical Records Medical records reviewed: Yes I reviewed the patient's medical records. Imaging Data Radiologic Study: Attestation: I personally reviewed and interpreted this imaging study as follows: Imaging: CT Scan Radiologist's impression: EXAM: CT CHEST PE CTA CLINICAL HISTORY: sob, hx of CA. TECHNIQUE: Imaging Protocol: Axial CT angiography was performed with multi-slice acquisition and multi-planar reconstructions as well as axial, coronal and sagittal MIP reconstructions. CONTRAST MATERIAL: Intravenous: Omnipaque 350 Contrast volume:100 ml COMPARISON: CT CT CHEST W from 04/23/2021 FINDINGS: Pulmonary Arteries: No evidence of filling defect to suggest pulmonary emboli. Tracheobronchial tree: Patent where visualized. Mediastinum and Germania: No dominant adenopathy or fluid collection. Pulmonary parenchyma: Mildly limited evaluation due to expiratory changes and mild respiratory motion. No consolidation or dominant measurable mass. Pleura: No effusion or pneumothorax. Heart: The heart is moderately dilated. Mitral valve prosthesis. No coronary artery calcifications are seen. Aorta: Thoracic aorta non-dilated. No aneurysm. No dissection. Upper abdomen: Stable low-density lesion in the liver. Bones: Sternal wires. Multiple abnormal lytic lesions throughout the thoracic spine, worsening when compared with prior CT, consistent with metastatic disease. Mild compression fracture of T6 and T12. IMPRESSION: No evidence of pulmonary embolism. Cardiomegaly. Clear lungs. Worsening of spinal metastases. Lab Data Lab results reviewed: Yes I reviewed the patient's lab results. Labs: Laboratory Tests Range/Units 08/07/21 08/07/21 08/07/21 13:50 13:50 13:50 PT (9.3-11.0) sec 10.8 INR (0.9-1.1) 1.1 APTT (21.0-27.5) sec 23.2 D-Dimer (<500) ng/mlFEU 890 H Magnesium (1.8-2.4) mg/dL 1.9 Troponin I (<or=60) ng/L < 50 NT-Pro-B Natriuret Pep (<300) pg/mL 463 H COVID-19 Source SARS-CoV-2 (PCR) (Negative) Range/Units 08/07/21 13:50 PT (9.3-11.0) sec INR (0.9-1.1) APTT (21.0-27.5) sec D-Dimer (<500) ng/mlFEU Magnesium (1.8-2.4) mg/dL Troponin I (<or=60) ng/L NT-Pro-B Natriuret Pep (<300) pg/mL COVID-19 Source Nasal/Nares SARS-CoV-2 (PCR) (Negative) Negative ECG Data Attestation: I personally reviewed and interpreted this ECG (s) as follows: Interpretation: Please see official report by Dr. Hardy. Sinus rhythm, ventricular rate of 89. No STEMI. Unchanged from 03-19-2021 HPI General Mode of arrival: ambulatory. Date/Time Provider Initiated Documentation: 08/07/21 13:37. Limitations to Documentation: no limitations. Information obtained by: patient. History of Present Illness 61 year old M presents to the emergency department with the chief complaint of SOB, described as mild, with intensity rated at 3. Quality is described as other (can't get enough air), and is localized to the chest. Patient reports no radiation. Patient started experiencing this week(s) (1) and it has been constant. improves with No relieving factors improve symptom(s), No exacerbating factors reported . Patient notes no other symptoms.. Patient did receive the following treatments prior to arrival, none Related Data Home Medications Medication Instructions Recorded Confirmed amoxicillin 500 mg capsule 3,000 mg PO DIRECTED #20 cap 03/25/19 08/07/21 multivitamin,tx-minerals 1 cap PO DAILY 05/25/19 08/07/21 (Multi-Vitamin HP/Minerals) levothyroxine 88 mcg tablet 88 mcg PO DAILY #90 tab-cap 05/07/21 08/07/21 (Synthroid) zolpidem 10 mg tablet 10 mg PO QHS PRN #20 tab 07/23/21 08/07/21 duloxetine 30 mg capsule,delayed 60 mg PO DAILY #120 cap 08/01/21 08/07/21 release (Cymbalta) lorazepam 1 mg tablet (Ativan) 1 mg PO DAILY 08/07/21 08/07/21 Previous Rx's Medication Instructions Recorded amoxicillin 500 mg capsule 3,000 mg PO DIRECTED #20 cap 03/25/19 levothyroxine 88 mcg tablet 88 mcg PO DAILY #90 tab-cap 05/07/21 (Synthroid) zolpidem 10 mg tablet 10 mg PO QHS PRN #20 tab 07/23/21 duloxetine 30 mg capsule,delayed 60 mg PO DAILY #120 cap 08/01/21 release (Cymbalta) Allergies Allergy/AdvReac Type Severity Reaction Status Date / Time methotrexate AdvReac Intermediate Flu like Verified 08/07/21 13:38 symptoms oxycodone AdvReac Intermediate HALLUCINATIONS Verified 08/07/21 13:38 & Nausea General Stated Complaint: SOB YANA: 2 Review of Systems Constitutional Constitutional: Denies fever(s) and Denies weakness ENT Ears, Nose, Mouth, and Throat: Denies neck pain Cardiovascular Cardiovascular: Denies chest pain and Reports dyspnea Respiratory Respiratory: Denies cough and Reports dyspnea Gastrointestinal Gastrointestinal: Denies abdominal pain, Denies nausea and Denies vomiting Musculoskeletal Musculoskeletal: Denies neck pain Integumentary/Breasts Skin/Breast: Denies rash Neurologic Neurologic: Denies weakness PFSH All Active Problems SOB (shortness of breath) (Acute) Multiple myeloma (Acute) Lytic bone lesions on xray (Acute) Bone pain (Acute) Dizziness on standing (Acute) Psoriasis (Chronic) Anxiety (Chronic) Encounter for annual physical exam (Acute) Peripheral neuropathy (Acute) Ventricular arrhythmia (Acute) Encounter for vasectomy (Acute 06/23/16) Family history of malignant neoplasm of prostate (Acute) father; grandfather Hypothyroidism (Acute 04/25/16) Iron deficiency anemia (Acute 11/03/12) extensive w/u. no cause found vegetarian. perhaps related to Fe def. Mitral valve regurgitation (Acute) repaired Nevus, non-neoplastic (Acute) multiple nevi Rheumatoid arthritis with positive rheumatoid factor (Acute 01/14/17) Status post tonsillectomy (Acute) Status post adenoidectomy (Acute) History of mitral valve repair (Acute) Medical History Hyperthyroidism Surgical History Colonoscopy - MAC 2009;neg EGD - MAC 2009; neg History of colonoscopy (~05/30/19) History of hernia repair inguinal bilat MITRAL VALVE RESECTION (~02/1998) Tonsillectomy and adenoidectomy (~1965) valvuloplasty; mitral (~1997) Vasectomy (~06/2016) Family History Mother Hyperlipidemia Stroke Father , AGE 83 Essential hypertension Hyperlipidemia Prostate cancer Sister No problems noted. Sister Depression Brother No problems noted. Maternal Grandfather , AGE 82 No problems noted. Paternal Grandfather , AGE 72 Prostate cancer Maternal Grandmother , AGE 78 No problems noted. Paternal Grandmother , AGE 88 Cancer Daughter No problems noted. Daughter No problems noted. 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 Pets and animals: Yes Pets and animals: cat(s) Sexually active: No Do you think of yourself as: straight/heterosexual Current gender identity: male What is your relationship status?: How often do you talk on the phone with friends or family?: once per week How often do you get together with friends or relatives?: once per week Do you belong to any clubs or organized social groups?: no Panel score (0-1 are the most socially isolated patients): 0 What type of physical activity do you participate in: walking Duration: 30-45 minutes/day Frequency: 3-4 times per week Charito/Evangelical: No preference Special charito needs: No Seatbelt use: always Helmet use: Yes Helmet use: always Drive intox or ride w/intox steam train driver: No Do you feel safe at home: Yes Do you feel safe in your relationship?: Yes Exam Const General: cooperative, healthy appearing, comfortable and no acute distress Orientation: alert, awake and oriented x3 HENMT Head: normal to inspection, normocephalic and atraumatic Mouth: moist mucous membranes Eyes General: appearance normal, both eyes and all related structures Conjunctivae: conjunctivae normal Neck Neck: normal visual inspection, full ROM, no meningeal signs, trachea midline, supple and nontender Resp Effort & Inspection: normal respiratory effort and able to speak in complete sentences Auscultation: clear to auscultation bilaterally Cardio Rate: regular rate Rhythm: regular rhythm GI Palpation: soft and nontender Back/Spine/Pelvis Back: No back tenderness Skin General skin exam: no rashes or lesions noted Neuro General: patient alert, patient awake, moves all extremities and no focal motor deficits Cognition: normal cognition Speech: speech normal Gait: normal gait Motor: muscle tone normal throughout Sensory Exam: no sensory deficits noted Extrem General: normal to inspection, full ROM, capillary refill normal, no pedal edema and no calf tenderness Psych Appearance: grossly normal Mental Status: mental status grossly normal Course Vital Signs Vital signs: Vital Signs Temperature 36.5 C 08/07/21 13:33 Pulse 87 08/07/21 13:33 Respiratory Rate 19 08/07/21 13:33 Blood Pressure 153/92 H 08/07/21 13:33 Pulse Oximetry 98 08/07/21 13:33 Temperature 36.5 C 08/07/21 13:33 Temperature Source Tympanic 08/07/21 13:33 Pulse 87 08/07/21 13:33 Respiratory Rate 19 08/07/21 13:33 Respiratory Effort 08/07/21 13:37 Blood Pressure 153/92 H 08/07/21 13:33 Blood Pressure Position Sitting 08/07/21 13:33 Pulse Oximetry 98 08/07/21 13:33 Oxygen Delivery Method Room Air 08/07/21 13:33 Oxygen Flow Rate 0 08/07/21 13:33 Pain Level 0 08/07/21 13:33
--- NOTE | 2021-08-07 13:40 | DI.CT_ITS ---
Exam(s) CT CHEST PE CTA EXAM: CT CHEST PE CTA CLINICAL HISTORY: sob, hx of CA. TECHNIQUE: Imaging Protocol: Axial CT angiography was performed with multi-slice acquisition and mu lti-planar reconstructions as well as axial, coronal and sagittal MIP reconstructions. CONTRAST MATERIAL: Intravenous: Omnipaque 350 Contrast volume:100 ml COMPARISON: CT CT CHEST W from 04/23/2021 FINDINGS: Pulmonary Arteries: No evidence of filling defect to suggest pulmonary emboli. Tracheobronchial tree: Patent where visualized. Mediastinum and Germania: No dominant adenopathy or fluid collection. Pulmonary parenchyma: Mildly limited evaluation due to expiratory changes and mild respiratory motion . No consolidation or dominant measurable mass. Pleura: No effusion or pneumothorax. Heart: The heart is moderately dilated. Mitral valve prosthesis. No coronary artery calcifications are seen. Aorta: Thoracic aorta non-dilated. No aneurysm. No dissection. Upper abdomen: Stable low-density lesion in the liver. Bones: Sternal wires. Multiple abnormal lytic lesions throughout the thoracic spine, worsening when compared with prior CT, consistent with metastatic disease. Mild compression fracture of T6 and T12. IMPRESSION: No evidence of pulmonary embolism. Cardiomegaly. Clear lungs. Worsening of spinal metastases. RADIATION DOSE DELIVERED: 399.51mGy.cm Total DLP DATA REPOSITORY: All CT scans at this facility are submitted to the National Radiology Data Registry (NRDR) Dose Index Registry (DIR) with the [employer] (ACR). RADIATION OPTIMIZATION: All CT scans at this facility use at least one of these dose optimization te chniques: automated exposure control; mA and/or kV adjustment per patient size (includes targeted exa ms where dose is matched to clinical indication); or iterative reconstruction.
[2021-08-07 13:57] LABS: Source Nasal/Nares
[2021-08-07 13:59] VITALS: RESP 16
[2021-08-07 14:19] LABS: Magnesium 1.9 mg/dL (1.8-2.4); Troponin I < 50 ng/L (<or=60)
[2021-08-07] MEDS: Omnipaque 350 MG/ML 100 ML BTL IJ (14:27)
[2021-08-07] MEDS: Normal Saline Flush 10 ML SYR IVP (14:28)
[2021-08-07 14:29] LABS: INR 1.1 (0.9-1.1); PTT Activated 23.2 sec (21.0-27.5); Prothrombin Time 10.8 sec (9.3-11.0)
[2021-08-07 14:34] LABS: D-Dimer 890 ng/mlFEU (<500)
[2021-08-07 14:40] LABS: NT-proBNP 463 pg/mL (<300)
[2021-08-07 14:42] LABS: COVID-19 PCR Negative (Negative)
[2021-08-07 15:18] VITALS: BP 148/74; PULSE 74; RESP 16; TEMP 36.6; O2SAT 97
== END 2021-08-07 15:29 | disposition home or self-care (01) ==
PROVIDERS: Emergency Provider Physician Assistant; PCP Family Medicine
DX: R06.02 Shortness of breath (principal); C90.00 Multiple myeloma not having achieved remission; Z20.822 Contact with and (suspected) exposure to COVID-19
CPT/HCPCS: 36415; 71275; 87635; 93005; 99284; 99285; 83735; 83880; 84484; 85379; 85610; 85730; 93010; J3490

== ENCOUNTER 2021-08-28 02:46 | Outpatient (CLI) | payer BC, SELFPAY ==
[2021-08-28 09:42] LABS: Abs Immature Grans 0.15 10^3/uL (0.0-0.06); HCT 38.3 % (40.0-50.0); MCH 30.7 pg (27.0-33.0); MCHC 33.9 % (32.0-36.0); MCV 91 fL (80-95); MPV 12.8 fL (8.0-11.0); RBC 4.23 10^6/uL (4.36-5.78); RDW 12.7 % (11.8-14.1); RDW-SD 42.4 fL; WBC 9.03 10^3/uL (4.4-10.8)
[2021-08-28 09:52] LABS: ALT 22 U/L (16-63); AST 15 U/L (15-37); Albumin 3.8 g/dL (3.4-5.0); Alkaline Phosphatase 98 U/L (46-116); Anion Gap 7.5 mmol/L (3-11); BUN 16 mg/dL (7-18); CO2 26.5 mmol/L (21.0-32.0); CREATININE 0.8 mg/dL (0.70-1.30); Calcium 8.6 mg/dL (8.5-10.1); Chloride 103 mmol/L (98-107); Glucose 92 mg/dL (74-106); Sodium 137 mmol/L (136-145); Total Protein 6.1 g/dL (6.4-8.2)
[2021-08-28 10:08] LABS: Diff Comment Manual Differential; Platelet Count 148 10^3/uL (130-400); RBC Morphology Normal
[2021-08-28 10:09] LABS: Absolute Lymphocyte Count 1.44 10^3/uL (1.2-3.4); Absolute Monocyte Count 1.81 10^3/uL (0.1-0.8); Absolute Neutrophil Count 5.78 10^3/uL (1.2-6.7); Atypical Lymphocytes % 1
[2021-08-29 10:21] LABS: IgA <13 mg/dL (85-499); IgG 248 mg/dL (610-1,616); IgM <12 mg/dL (35-242); Kappa Free Light Chain 0.53 mg/dL (0.33-1.94); Lambda Free Light Chain 207.17 mg/dL (0.57-2.63)
[2021-08-29 13:29] LABS: Albumin 67.4 % (55.8-66.1); Albumin g/dL 3.8 g/dL (3.6-5.2); Comment (See Note); Total Protein 5.7 g/dL (6.3-8.2)
== END 2021-08-28 02:47 | disposition home or self-care (01) ==
LOC: LBO 02:46
PROVIDERS: PCP Family Medicine; Visit Provider Nurse Practitioner Adult Health
DX: C90.00 Multiple myeloma not having achieved remission (principal)
CPT/HCPCS: 36415; 80053; 82784; 83883; 84165; 85025

== ENCOUNTER 2021-09-16 03:45 | Outpatient (CLI) | payer BC, SELFPAY ==
[2021-09-16 08:39] LABS: Abs Immature Grans 0.23 10^3/uL (0.0-0.06); Absolute Basophil Count 0.03 10^3/uL (0.0-0.2); Absolute Eosinophil Count 0.05 10^3/uL (0.0-0.7); Absolute Lymphocyte Count 0.61 10^3/uL (1.2-3.4); Absolute Monocyte Count 1.09 10^3/uL (0.1-0.8); Absolute Neutrophil Count 2.76 10^3/uL (1.2-6.7); Basophils % 0.6; HCT 37.9 % (40.0-50.0); Immature Grans % 4.8; Lymphocytes % 12.8; MCH 30.4 pg (27.0-33.0); MCHC 34.3 % (32.0-36.0); MCV 89 fL (80-95); MPV 12.9 fL (8.0-11.0); Monocytes % 22.9; Neutrophils % 57.9; Platelet Count 123 10^3/uL (130-400); RBC 4.28 10^6/uL (4.36-5.78); RDW 12.4 % (11.8-14.1); RDW-SD 40.1 fL; WBC 4.77 10^3/uL (4.4-10.8)
[2021-09-16 08:58] LABS: ALT 13 U/L (16-63); AST 8 U/L (15-37); Albumin 3.7 g/dL (3.4-5.0); Alkaline Phosphatase 82 U/L (46-116); Anion Gap 7.5 mmol/L (3-11); BUN 13 mg/dL (7-18); Bilirubin, Total 0.6 mg/dL (0.2-1.0); CO2 29.5 mmol/L (21.0-32.0); CREATININE 0.9 mg/dL (0.70-1.30); Calcium 8.7 mg/dL (8.5-10.1); Chloride 105 mmol/L (98-107); Glucose 79 mg/dL (74-106); Potassium 3.3 mmol/L (3.5-5.1); Sodium 142 mmol/L (136-145); Total Protein 5.8 g/dL (6.4-8.2)
[2021-09-17 09:56] LABS: Kappa Free Light Chain 0.58 mg/dL (0.33-1.94); Lambda Free Light Chain 205.13 mg/dL (0.57-2.63)
[2021-09-17 15:43] LABS: Albumin 68.5 % (55.8-66.1); Albumin g/dL 3.7 g/dL (3.6-5.2); Comment (See Note); Total Protein 5.4 g/dL (6.3-8.2)
== END 2021-09-16 03:46 | disposition home or self-care (01) ==
LOC: LBO 03:45
PROVIDERS: Internal Medicine Hematology & Oncology; PCP Family Medicine; Visit Provider Nurse Practitioner Adult Health
DX: C90.00 Multiple myeloma not having achieved remission (principal)
CPT/HCPCS: 36415; 80053; 83883; 84165; 85025

== ENCOUNTER 2021-10-09 01:53 | Outpatient (CLI) | payer BC, SELFPAY ==
[2021-10-09 09:24] LABS: Abs Immature Grans 0.03 10^3/uL (0.0-0.06); Absolute Basophil Count 0.03 10^3/uL (0.0-0.2); Absolute Eosinophil Count 0.03 10^3/uL (0.0-0.7); Absolute Lymphocyte Count 1.26 10^3/uL (1.2-3.4); Absolute Monocyte Count 0.68 10^3/uL (0.1-0.8); Absolute Neutrophil Count 3.12 10^3/uL (1.2-6.7); Basophils % 0.6; Eosinophils % 0.6; HGB 13.7 g/dL (13.5-17.5); Immature Grans % 0.6; Lymphocytes % 24.5; MCH 30.2 pg (27.0-33.0); MCHC 34.3 % (32.0-36.0); MCV 88 fL (80-95); MPV 10.2 fL (8.0-11.0); Monocytes % 13.2; Neutrophils % 60.5; Platelet Count 215 10^3/uL (130-400); RBC 4.54 10^6/uL (4.36-5.78); RDW 12.1 % (11.8-14.1); RDW-SD 39.2 fL; WBC 5.15 10^3/uL (4.4-10.8)
[2021-10-09 09:41] LABS: ALT 18 U/L (16-63); AST 15 U/L (15-37); Albumin 4.1 g/dL (3.4-5.0); Alkaline Phosphatase 86 U/L (46-116); Anion Gap 7.7 mmol/L (3-11); BUN 17 mg/dL (7-18); Bilirubin, Total 0.9 mg/dL (0.2-1.0); CO2 28.3 mmol/L (21.0-32.0); CREATININE 0.9 mg/dL (0.70-1.30); Calcium 9.3 mg/dL (8.5-10.1); Chloride 105 mmol/L (98-107); Glucose 116 mg/dL (74-106); Potassium 3.4 mmol/L (3.5-5.1); Sodium 141 mmol/L (136-145); Total Protein 6.3 g/dL (6.4-8.2)
[2021-10-10 09:41] LABS: IgA <13 mg/dL (85-499); IgG 255 mg/dL (610-1,616); IgM <12 mg/dL (35-242); Kappa Free Light Chain 0.35 mg/dL (0.33-1.94)
[2021-10-10 14:52] LABS: Albumin 68.9 % (55.8-66.1); Albumin g/dL 4.1 g/dL (3.6-5.2); Comment (See Note); Monoclonal Spike g/dL 0.1 g/dL (None Seen)
== END 2021-10-09 01:54 | disposition home or self-care (01) ==
LOC: LBO 01:53
PROVIDERS: PCP Family Medicine; Visit Provider Internal Medicine Hematology & Oncology
DX: C90.00 Multiple myeloma not having achieved remission (principal)
CPT/HCPCS: 36415; 80053; 82784; 83883; 84165; 85025

== ENCOUNTER 2021-11-06 02:17 | Outpatient (RCR) | payer BC, SELFPAY ==
[2021-10-23 11:27] LABS: Abs Immature Grans 0.08 10^3/uL (0.0-0.06); Absolute Basophil Count 0.02 10^3/uL (0.0-0.2); Absolute Eosinophil Count 0.07 10^3/uL (0.0-0.7); Absolute Lymphocyte Count 0.42 10^3/uL (1.2-3.4); Absolute Monocyte Count 0.69 10^3/uL (0.1-0.8); Absolute Neutrophil Count 7.25 10^3/uL (1.2-6.7); Basophils % 0.2; Eosinophils % 0.8; HCT 40.3 % (40.0-50.0); HGB 13.4 g/dL (13.5-17.5); Immature Grans % 0.9; Lymphocytes % 4.9; MCH 29.3 pg (27.0-33.0); MCHC 33.3 % (32.0-36.0); MCV 88 fL (80-95); MPV 11.9 fL (8.0-11.0); Monocytes % 8.1; Neutrophils % 85.1; Platelet Count 153 10^3/uL (130-400); RBC 4.57 10^6/uL (4.36-5.78); RDW 12.4 % (11.8-14.1); RDW-SD 39.8 fL; WBC 8.53 10^3/uL (4.4-10.8)
[2021-10-23 11:38] LABS: ALT 19 U/L (16-63); AST 11 U/L (15-37); Albumin 4.1 g/dL (3.4-5.0); Alkaline Phosphatase 64 U/L (46-116); Anion Gap 10.2 mmol/L (3-11); BUN 19 mg/dL (7-18); Bilirubin, Total 1.5 mg/dL (0.2-1.0); CO2 26.8 mmol/L (21.0-32.0); CREATININE 0.9 mg/dL (0.70-1.30); Chloride 105 mmol/L (98-107); Glucose 106 mg/dL (74-106); Potassium 3.8 mmol/L (3.5-5.1); Sodium 142 mmol/L (136-145); Total Protein 6.2 g/dL (6.4-8.2)
[2021-11-06] MEDS: Normal Saline Flush 10 ML SYR IVP (09:22)
[2021-11-06 09:29] LABS: Abs Immature Grans 0.01 10^3/uL (0.0-0.06); Absolute Basophil Count 0.03 10^3/uL (0.0-0.2); Absolute Eosinophil Count 0.02 10^3/uL (0.0-0.7); Absolute Lymphocyte Count 0.94 10^3/uL (1.2-3.4); Absolute Monocyte Count 0.91 10^3/uL (0.1-0.8); Absolute Neutrophil Count 1.44 10^3/uL (1.2-6.7); Basophils % 0.9; Eosinophils % 0.6; HGB 12.3 g/dL (13.5-17.5); Immature Grans % 0.3; Lymphocytes % 28.1; MCH 30.2 pg (27.0-33.0); MCHC 34.2 % (32.0-36.0); MCV 89 fL (80-95); MPV 9.6 fL (8.0-11.0); Monocytes % 27.2; Neutrophils % 42.9; Platelet Count 272 10^3/uL (130-400); RBC 4.07 10^6/uL (4.36-5.78); RDW 12.8 % (11.8-14.1); RDW-SD 41.6 fL; WBC 3.35 10^3/uL (4.4-10.8)
[2021-11-06 09:43] LABS: ALT 16 U/L (16-63); AST 9 U/L (15-37); Albumin 3.7 g/dL (3.4-5.0); Alkaline Phosphatase 75 U/L (46-116); Anion Gap 7.3 mmol/L (3-11); BUN 15 mg/dL (7-18); Bilirubin, Total 0.9 mg/dL (0.2-1.0); CO2 25.7 mmol/L (21.0-32.0); CREATININE 0.9 mg/dL (0.70-1.30); Calcium 8.9 mg/dL (8.5-10.1); Chloride 105 mmol/L (98-107); Glucose 107 mg/dL (74-106); Sodium 138 mmol/L (136-145); Total Protein 6.1 g/dL (6.4-8.2)
[2021-11-07 10:36] LABS: IgA <13 mg/dL (85-499); IgG 301 mg/dL (610-1,616); IgM <12 mg/dL (35-242); Kappa Free Light Chain 0.19 mg/dL (0.33-1.94)
[2021-11-07 15:17] LABS: Albumin 67.2 % (55.8-66.1); Albumin g/dL 3.7 g/dL (3.6-5.2); Comment (See Note); Monoclonal Spike 1.4 % (None Seen); Monoclonal Spike g/dL 0.1 g/dL (None Seen); Total Protein 5.5 g/dL (6.3-8.2)
[2021-11-07 16:16] LABS: Immunotyping, Serum (See Note)
== END 2021-11-10 23:59 | disposition home or self-care (01) ==
LOC: INF 02:17
PROVIDERS: PCP Family Medicine; Visit Provider Internal Medicine Hematology & Oncology
DX: C90.00 Multiple myeloma not having achieved remission (principal); Z45.2 Encounter for adjustment and management of vascular access device
CPT/HCPCS: 36415; 36591; 80053; 82784; 83883; 84165; 85025; 86320

== ENCOUNTER 2021-12-04 02:12 | Outpatient (RCR) | payer BC, SELFPAY ==
[2021-11-20] MEDS: Normal Saline Flush 10 ML SYR IVP (08:00)
[2021-11-20 08:27] LABS: Abs Immature Grans 0.04 10^3/uL (0.0-0.06); Absolute Basophil Count 0.05 10^3/uL (0.0-0.2); Absolute Eosinophil Count 0.11 10^3/uL (0.0-0.7); Absolute Lymphocyte Count 0.67 10^3/uL (1.2-3.4); Absolute Monocyte Count 1.29 10^3/uL (0.1-0.8); Absolute Neutrophil Count 4.13 10^3/uL (1.2-6.7); Basophils % 0.8; Eosinophils % 1.7; HCT 36.1 % (40.0-50.0); HGB 12.5 g/dL (13.5-17.5); Immature Grans % 0.6; Lymphocytes % 10.7; MCH 30.4 pg (27.0-33.0); MCHC 34.6 % (32.0-36.0); MCV 88 fL (80-95); MPV 11.2 fL (8.0-11.0); Monocytes % 20.5; Neutrophils % 65.7; Platelet Count 187 10^3/uL (130-400); RBC 4.11 10^6/uL (4.36-5.78); RDW 13.3 % (11.8-14.1); RDW-SD 42.8 fL; WBC 6.29 10^3/uL (4.4-10.8)
[2021-11-20 08:43] LABS: ALT 16 U/L (16-63); AST 9 U/L (15-37); Albumin 3.7 g/dL (3.4-5.0); Alkaline Phosphatase 70 U/L (46-116); Anion Gap 9.6 mmol/L (3-11); BUN 13 mg/dL (7-18); Bilirubin, Total 1.2 mg/dL (0.2-1.0); CO2 26.4 mmol/L (21.0-32.0); CREATININE 0.7 mg/dL (0.70-1.30); Calcium 8.6 mg/dL (8.5-10.1); Chloride 103 mmol/L (98-107); Glucose 114 mg/dL (74-106); Potassium 4.3 mmol/L (3.5-5.1); Sodium 139 mmol/L (136-145); Total Protein 5.9 g/dL (6.4-8.2)
[2021-12-04 09:19] LABS: Abs Immature Grans 0.02 10^3/uL (0.0-0.06); Absolute Basophil Count 0.09 10^3/uL (0.0-0.2); Absolute Eosinophil Count 0.03 10^3/uL (0.0-0.7); Absolute Lymphocyte Count 0.73 10^3/uL (1.2-3.4); Absolute Monocyte Count 1.13 10^3/uL (0.1-0.8); Absolute Neutrophil Count 2.63 10^3/uL (1.2-6.7); Basophils % 1.9; Eosinophils % 0.6; HCT 36.5 % (40.0-50.0); HGB 12.2 g/dL (13.5-17.5); Immature Grans % 0.4; Lymphocytes % 15.8; MCH 30.9 pg (27.0-33.0); MCHC 33.4 % (32.0-36.0); MCV 92 fL (80-95); MPV 9.7 fL (8.0-11.0); Monocytes % 24.4; Neutrophils % 56.9; Platelet Count 311 10^3/uL (130-400); RBC 3.95 10^6/uL (4.36-5.78); RDW-SD 47.5 fL; WBC 4.63 10^3/uL (4.4-10.8)
[2021-12-04 09:35] LABS: ALT 20 U/L (16-63); AST 11 U/L (15-37); Albumin 3.5 g/dL (3.4-5.0); Alkaline Phosphatase 66 U/L (46-116); Anion Gap 7.9 mmol/L (3-11); BUN 11 mg/dL (7-18); Bilirubin, Total 0.8 mg/dL (0.2-1.0); CO2 27.1 mmol/L (21.0-32.0); CREATININE 0.7 mg/dL (0.70-1.30); Calcium 8.3 mg/dL (8.5-10.1); Chloride 108 mmol/L (98-107); Glucose 115 mg/dL (74-106); Potassium 3.8 mmol/L (3.5-5.1); Sodium 143 mmol/L (136-145); Total Protein 5.7 g/dL (6.4-8.2)
[2021-12-04] MEDS: Normal Saline Flush 10 ML SYR IVP (12:56)
[2021-12-05 10:56] LABS: IgA <13 mg/dL (85-499); IgG 352 mg/dL (610-1,616); IgM <12 mg/dL (35-242); Lambda Free Light Chain 103.36 mg/dL (0.57-2.63)
[2021-12-05 14:56] LABS: Albumin 70.2 % (55.8-66.1); Albumin g/dL 3.9 g/dL (3.6-5.2); Comment (See Note); Total Protein 5.6 g/dL (6.3-8.2)
[2021-12-06 09:23] LABS: Immunotyping, Serum (See Note)
== END 2021-12-11 23:59 | disposition home or self-care (01) ==
LOC: INF 02:12
PROVIDERS: PCP Family Medicine; Visit Provider Internal Medicine Hematology & Oncology
DX: C90.00 Multiple myeloma not having achieved remission (principal); Z45.2 Encounter for adjustment and management of vascular access device
CPT/HCPCS: 36591; 80053; 82784; 83883; 84165; 85025; 86320

== ENCOUNTER 2022-01-01 02:04 | Outpatient (RCR) | payer BC, SELFPAY ==
[2021-12-18] MEDS: Normal Saline Flush 10 ML SYR IVP (12:16)
[2021-12-18 12:24] LABS: Abs Immature Grans 0.09 10^3/uL (0.0-0.06); Absolute Basophil Count 0.05 10^3/uL (0.0-0.2); Absolute Eosinophil Count 0.16 10^3/uL (0.0-0.7); Absolute Lymphocyte Count 0.77 10^3/uL (1.2-3.4); Absolute Monocyte Count 1.12 10^3/uL (0.1-0.8); Absolute Neutrophil Count 6.11 10^3/uL (1.2-6.7); Basophils % 0.6; Eosinophils % 1.9; HCT 35.4 % (40.0-50.0); HGB 11.9 g/dL (13.5-17.5); Immature Grans % 1.1; Lymphocytes % 9.3; MCH 31.6 pg (27.0-33.0); MCHC 33.6 % (32.0-36.0); MCV 94 fL (80-95); MPV 10.9 fL (8.0-11.0); Monocytes % 13.5; Neutrophils % 73.6; Platelet Count 193 10^3/uL (130-400); RBC 3.77 10^6/uL (4.36-5.78); RDW 13.5 % (11.8-14.1); RDW-SD 46.2 fL
[2021-12-18 12:36] LABS: ALT 15 U/L (16-63); AST 9 U/L (15-37); Albumin 3.7 g/dL (3.4-5.0); Alkaline Phosphatase 86 U/L (46-116); Anion Gap 5.1 mmol/L (3-11); BUN 12 mg/dL (7-18); Bilirubin, Total 0.9 mg/dL (0.2-1.0); CO2 28.9 mmol/L (21.0-32.0); CREATININE 0.8 mg/dL (0.70-1.30); Calcium 8.5 mg/dL (8.5-10.1); Chloride 106 mmol/L (98-107); Estimated GFR 101.32 (mL/min/1.73m2); Glucose 119 mg/dL (74-106); Sodium 140 mmol/L (136-145); Total Protein 5.9 g/dL (6.4-8.2)
[2022-01-01] MEDS: Normal Saline Flush 10 ML SYR IVP (08:42)
[2022-01-01 09:28] LABS: Abs Immature Grans 0.01 10^3/uL (0.0-0.06); Absolute Basophil Count 0.17 10^3/uL (0.0-0.2); Absolute Eosinophil Count 0.53 10^3/uL (0.0-0.7); Absolute Lymphocyte Count 0.48 10^3/uL (1.2-3.4); Absolute Monocyte Count 1.45 10^3/uL (0.1-0.8); Absolute Neutrophil Count 1.39 10^3/uL (1.2-6.7); Basophils % 4.2; Eosinophils % 13.2; HCT 34.1 % (40.0-50.0); HGB 11.6 g/dL (13.5-17.5); Immature Grans % 0.2; Lymphocytes % 11.9; MCH 31.7 pg (27.0-33.0); MCV 93 fL (80-95); MPV 9.8 fL (8.0-11.0); Neutrophils % 34.5; Platelet Count 200 10^3/uL (130-400); RBC 3.66 10^6/uL (4.36-5.78); RDW 12.8 % (11.8-14.1); RDW-SD 44.1 fL; WBC 4.03 10^3/uL (4.4-10.8)
[2022-01-01 09:44] LABS: ALT 27 U/L (16-63); AST 19 U/L (15-37); Albumin 3.1 g/dL (3.4-5.0); Alkaline Phosphatase 75 U/L (46-116); Anion Gap 7.4 mmol/L (3-11); BUN 13 mg/dL (7-18); Bilirubin, Total 0.7 mg/dL (0.2-1.0); CO2 27.6 mmol/L (21.0-32.0); CREATININE 0.7 mg/dL (0.70-1.30); Calcium 8.6 mg/dL (8.5-10.1); Chloride 105 mmol/L (98-107); Estimated GFR 105.49 (mL/min/1.73m2); Glucose 91 mg/dL (74-106); Potassium 3.7 mmol/L (3.5-5.1); Sodium 140 mmol/L (136-145); Total Protein 5.5 g/dL (6.4-8.2)
[2022-01-02 10:11] LABS: IgA <13 mg/dL (85-499); IgG 271 mg/dL (610-1,616); IgM 18 mg/dL (35-242); Kappa Free Light Chain 0.35 mg/dL (0.33-1.94); Lambda Free Light Chain 45.63 mg/dL (0.57-2.63)
[2022-01-02 15:04] LABS: Albumin 64.4 % (55.8-66.1); Albumin g/dL 3.1 g/dL (3.6-5.2); Comment (See Note); Total Protein 4.8 g/dL (6.3-8.2)
[2022-01-02 17:14] LABS: Immunotyping, Serum (See Note)
== END 2022-01-10 23:59 | disposition home or self-care (01) ==
LOC: INF 02:04
PROVIDERS: PCP Family Medicine; Visit Provider Internal Medicine Hematology & Oncology
DX: C90.00 Multiple myeloma not having achieved remission (principal); Z45.2 Encounter for adjustment and management of vascular access device
CPT/HCPCS: 36591; 80053; 82784; 83883; 84165; 85025; 86320

== ENCOUNTER 2022-01-29 02:10 | Outpatient (RCR) | payer BC, SELFPAY ==
[2022-01-15] MEDS: Normal Saline Flush 10 ML SYR IVP (13:22)
[2022-01-15 13:29] LABS: Abs Immature Grans 0.06 10^3/uL (0.0-0.06); Absolute Basophil Count 0.08 10^3/uL (0.0-0.2); Absolute Eosinophil Count 0.58 10^3/uL (0.0-0.7); Absolute Lymphocyte Count 1.06 10^3/uL (1.2-3.4); Absolute Monocyte Count 0.81 10^3/uL (0.1-0.8); Basophils % 0.9; Eosinophils % 6.2; HGB 11.4 g/dL (13.5-17.5); Immature Grans % 0.6; Lymphocytes % 11.4; MCH 31.1 pg (27.0-33.0); MCHC 33.5 % (32.0-36.0); MCV 93 fL (80-95); MPV 10.1 fL (8.0-11.0); Monocytes % 8.7; Neutrophils % 72.2; Platelet Count 245 10^3/uL (130-400); RBC 3.66 10^6/uL (4.36-5.78); RDW 12.3 % (11.8-14.1); RDW-SD 42.1 fL; WBC 9.29 10^3/uL (4.4-10.8)
[2022-01-15 13:43] LABS: ALT 26 U/L (16-63); AST 17 U/L (15-37); Albumin 3.4 g/dL (3.4-5.0); Alkaline Phosphatase 86 U/L (46-116); BUN 14 mg/dL (7-18); Bilirubin, Total 0.6 mg/dL (0.2-1.0); CREATININE 0.7 mg/dL (0.70-1.30); Calcium 8.6 mg/dL (8.5-10.1); Chloride 103 mmol/L (98-107); Estimated GFR 104.83 (mL/min/1.73m2); Glucose 170 mg/dL (74-106); Potassium 4.1 mmol/L (3.5-5.1); Sodium 138 mmol/L (136-145); Total Protein 5.7 g/dL (6.4-8.2)
[2022-01-29] MEDS: Normal Saline Flush 10 ML SYR IVP (08:45)
[2022-01-29 08:53] LABS: Abs Immature Grans 0.03 10^3/uL (0.0-0.06); Absolute Basophil Count 0.21 10^3/uL (0.0-0.2); Absolute Lymphocyte Count 0.86 10^3/uL (1.2-3.4); Absolute Monocyte Count 1.46 10^3/uL (0.1-0.8); Absolute Neutrophil Count 3.22 10^3/uL (1.2-6.7); Basophils % 3.3; Eosinophils % 9.4; HCT 36.5 % (40.0-50.0); HGB 12.1 g/dL (13.5-17.5); Immature Grans % 0.5; Lymphocytes % 13.5; MCH 31.4 pg (27.0-33.0); MCHC 33.2 % (32.0-36.0); MCV 95 fL (80-95); MPV 9.4 fL (8.0-11.0); Monocytes % 22.9; Neutrophils % 50.4; Platelet Count 330 10^3/uL (130-400); RBC 3.85 10^6/uL (4.36-5.78); RDW 13.2 % (11.8-14.1); RDW-SD 45.5 fL; WBC 6.38 10^3/uL (4.4-10.8)
[2022-01-29 09:14] LABS: ALT 18 U/L (16-63); AST 12 U/L (15-37); Albumin 3.4 g/dL (3.4-5.0); Alkaline Phosphatase 87 U/L (46-116); Anion Gap 6.1 mmol/L (3-11); BUN 9 mg/dL (7-18); Bilirubin, Total 0.5 mg/dL (0.2-1.0); CO2 26.9 mmol/L (21.0-32.0); CREATININE 0.9 mg/dL (0.70-1.30); Chloride 106 mmol/L (98-107); Estimated GFR 97.17 (mL/min/1.73m2); Glucose 133 mg/dL (74-106); Sodium 139 mmol/L (136-145)
[2022-01-30 09:13] LABS: IgA <13 mg/dL (85-499); IgG 323 mg/dL (610-1,616); IgM 17 mg/dL (35-242); Kappa Free Light Chain 0.38 mg/dL (0.33-1.94); Lambda Free Light Chain 16.63 mg/dL (0.57-2.63)
[2022-01-31 14:23] LABS: Albumin 64.8 % (55.8-66.1); Albumin g/dL 3.2 g/dL (3.6-5.2); Comment (See Note)
[2022-01-31 15:11] LABS: Immunotyping, Serum (See Note)
== END 2022-02-10 23:59 | disposition home or self-care (01) ==
LOC: INF 02:10
PROVIDERS: PCP Family Medicine; Visit Provider Internal Medicine Hematology & Oncology
DX: C90.00 Multiple myeloma not having achieved remission (principal); Z45.2 Encounter for adjustment and management of vascular access device
CPT/HCPCS: 36591; 80053; 82784; 83883; 84165; 85025; 86320

== ENCOUNTER 2022-02-04 02:41 | Outpatient (CLI) | payer BC, SELFPAY ==
--- NOTE | 2022-02-03 09:00 | NS.NUTBLAN_ITS ---
Karl was referred for weight and nutrition management while having chemotherapy in preparation [place] [facility] [place] He is a vegetarian that includes eggs and fish/seafood. No dairy. Hx of constipation and diarrhea- has improved now that removed all dairy and high fiber foods. 6'1 165lbs Down 25 lbs in last 6 months Usual weight: 190-200 lbs BMI: 21 Labs (01/29/22) overall good WBC: 6.38 , Hgb: 12.1 Diet Recall: granola with soy yogurt, rice milk, L: 1 cup rice and beans, 2 eggs, Dinner: gumbo with arin- estimated intake: 1500 kcal, 50 g protein, 30 g fat Estimated macronutrient needs: 2096-2262 kcal, 80-90 g protein, 55-60 g fat Currently meetingabout 70% of caloric needs, 60% of protein needs and 50% of fat intake needs. Session today focused on how to include adequate macronutrient intake with compromised immune system and digestive track. Reviewed importance of food safety and encouraged eating high biological value protein (eggs/fish), increasing fat intake (olive oil, fatty fish, soy) and reducing high fiber foods and relying more on simple carbs such as white rice and lower fiber options. . Provided meal plan and recommend tracking intake on a phone jayshree (Carbs&Cals) and weighing weekly. Recommend 1 protein shake daily with upto 30 gram protein (naked juice protein shake or equivalent). Goal: weight regain of 1-2 lbs per week. Goal weight at time of transplant: 185 lbs. Follow up to be scheduled in 2-3 weeks.
== END 2022-02-04 02:42 | disposition home or self-care (01) ==
LOC: DS 02:41
PROVIDERS: PCP Family Medicine; Visit Provider Dietitian, Registered
DX: C90.00 Multiple myeloma not having achieved remission (principal); R63.4 Abnormal weight loss; E63.8 Other specified nutritional deficiencies; Z92.21 Personal history of antineoplastic chemotherapy; Z71.3 Dietary counseling and surveillance
CPT/HCPCS: 97802

== ENCOUNTER 2022-02-25 04:16 | Outpatient (CLI) | payer BC, SELFPAY ==
--- NOTE | 2022-02-25 09:00 | NS.NUTBLAN_ITS ---
Harvinder returns for follow up. Referred for weight and nutrition management during work up /chemo therapy for multiple myloma and in preparation for bone marrow transplant at [place] April 2022 Wt: 171 lbs. Up 6 lbs in last 3 weeks. UBW: 190-200 lbs Labs:(02/12/22): WBC and Hgb wnl Diet recall: soy yogurt and granola, rice and beans, seafood and potato. Taking 1/2 protein shake daily. average intake: 2000 kcal, 60 g protein, 45 g fat Estimated Needs for weight gain: 5483-5428 kcal, 90-100 g protein. Some GI upset, but overall doing well with digestion. Harvinder has done well with increasing his calories but continues to not meet protein needs. Recent labs reassuring as Hgb and WBC wnl while on chemotheraphy. Currently meeting nutrient needs for weight maintenance. Will encourage increase in calories and protein to help witih weight regain prior to transplant. Plan: Continue current meal plan and add following: Daily consume: to meet increased protein needs 1/2 block tofu - 25 g pro protein 4 ounces seafood - 28 grams protein 2 eggs 14 g protein 1/2 protein shake: 15 grams 4 cups juice If having difficult time with digesting increased food intake, recommend [employer] 1.5 Peptide shake. Follow up scheduled for 03/18/22 at 9 am. Goal is for 2 lbs weight gain per week.
== END 2022-02-25 04:17 | disposition home or self-care (01) ==
LOC: DS 04:16
PROVIDERS: PCP Family Medicine; Visit Provider Dietitian, Registered
DX: R63.4 Abnormal weight loss (principal); E63.8 Other specified nutritional deficiencies; Z71.3 Dietary counseling and surveillance; Z92.21 Personal history of antineoplastic chemotherapy; C90.00 Multiple myeloma not having achieved remission
CPT/HCPCS: 97803

== ENCOUNTER 2022-03-05 02:12 | Outpatient (RCR) | payer BC, SELFPAY ==
[2022-02-12] MEDS: Normal Saline Flush 10 ML SYR IVP (11:18)
[2022-02-12 11:46] LABS: Abs Immature Grans 0.06 10^3/uL (0.0-0.06); Absolute Basophil Count 0.08 10^3/uL (0.0-0.2); Absolute Eosinophil Count 0.24 10^3/uL (0.0-0.7); Absolute Lymphocyte Count 0.84 10^3/uL (1.2-3.4); Absolute Monocyte Count 1.05 10^3/uL (0.1-0.8); Absolute Neutrophil Count 6.33 10^3/uL (1.2-6.7); Basophils % 0.9; Eosinophils % 2.8; HCT 37.8 % (40.0-50.0); HGB 12.5 g/dL (13.5-17.5); Immature Grans % 0.7; Lymphocytes % 9.8; MCHC 33.1 % (32.0-36.0); MCV 94 fL (80-95); MPV 10.8 fL (8.0-11.0); Monocytes % 12.2; Neutrophils % 73.6; Platelet Count 212 10^3/uL (130-400); RBC 4.03 10^6/uL (4.36-5.78); RDW 12.8 % (11.8-14.1)
[2022-02-12 12:06] LABS: ALT 13 U/L (16-63); AST 10 U/L (15-37); Albumin 3.7 g/dL (3.4-5.0); Alkaline Phosphatase 84 U/L (46-116); Anion Gap 5.1 mmol/L (3-11); BUN 13 mg/dL (7-18); Bilirubin, Total 0.7 mg/dL (0.2-1.0); CO2 28.9 mmol/L (21.0-32.0); CREATININE 0.7 mg/dL (0.70-1.30); Calcium 9.3 mg/dL (8.5-10.1); Chloride 106 mmol/L (98-107); Estimated GFR 104.83 (mL/min/1.73m2); Glucose 130 mg/dL (74-106); Potassium 3.9 mmol/L (3.5-5.1); Sodium 140 mmol/L (136-145); Total Protein 5.9 g/dL (6.4-8.2)
[2022-03-05] MEDS: Normal Saline Flush 10 ML SYR IVP (09:20)
[2022-03-05 09:24] LABS: Abs Immature Grans 0.04 10^3/uL (0.0-0.06); Absolute Basophil Count 0.11 10^3/uL (0.0-0.2); Absolute Eosinophil Count 0.03 10^3/uL (0.0-0.7); Absolute Lymphocyte Count 0.93 10^3/uL (1.2-3.4); Absolute Monocyte Count 0.56 10^3/uL (0.1-0.8); Absolute Neutrophil Count 2.67 10^3/uL (1.2-6.7); Basophils % 2.5; Eosinophils % 0.7; HCT 41.2 % (40.0-50.0); HGB 13.6 g/dL (13.5-17.5); Immature Grans % 0.9; Lymphocytes % 21.4; MCH 31.1 pg (27.0-33.0); MCV 94 fL (80-95); MPV 10.6 fL (8.0-11.0); Monocytes % 12.9; Neutrophils % 61.6; Platelet Count 225 10^3/uL (130-400); RBC 4.38 10^6/uL (4.36-5.78); RDW 12.9 % (11.8-14.1); WBC 4.34 10^3/uL (4.4-10.8)
[2022-03-05 09:45] LABS: ALT 14 U/L (16-63); AST 10 U/L (15-37); Albumin 3.8 g/dL (3.4-5.0); Alkaline Phosphatase 85 U/L (46-116); Anion Gap 7.9 mmol/L (3-11); BUN 15 mg/dL (7-18); Bilirubin, Total 0.7 mg/dL (0.2-1.0); CO2 27.1 mmol/L (21.0-32.0); CREATININE 0.9 mg/dL (0.70-1.30); Calcium 8.9 mg/dL (8.5-10.1); Chloride 104 mmol/L (98-107); Estimated GFR 97.17 (mL/min/1.73m2); Glucose 137 mg/dL (74-106); Sodium 139 mmol/L (136-145); Total Protein 6.2 g/dL (6.4-8.2)
[2022-03-10 10:35] LABS: IgA <13 mg/dL (85-499); IgG 301 mg/dL (610-1616); IgM <12 mg/dL (35-242); Kappa Free Light Chain 0.33 mg/dL (0.33-1.94); Lambda Free Light Chain 6.03 mg/dL (0.57-2.63)
[2022-03-11 15:04] LABS: Albumin 67.5 % (55.8-66.1); Albumin g/dL 3.6 g/dL (3.6-5.2); Comment (See Note); Total Protein 5.3 g/dL (6.3-8.2)
[2022-03-11 16:05] LABS: Immunotyping, Serum (See Note)
== END 2022-03-12 23:59 | disposition home or self-care (01) ==
LOC: INF 02:12
PROVIDERS: PCP Family Medicine; Visit Provider Internal Medicine Hematology & Oncology
DX: C90.00 Multiple myeloma not having achieved remission (principal); Z45.2 Encounter for adjustment and management of vascular access device
CPT/HCPCS: 36591; 80053; 82784; 83883; 84165; 85025; 86320

== ENCOUNTER 2022-03-18 03:51 | Outpatient (CLI) | payer BC, SELFPAY ==
--- NOTE | 2022-03-18 09:00 | NS.NUTBLAN_ITS ---
Harvinder returns for weight management during cancer treatments for multiple myeloma. Wt: 171 lbs BMI 21 down about 60 lbs in last year since dx Having bone marrow harvested on 04/17/22 and will be inpatient for most of Apr/May. 2022. Has been tracking his meals: averaging about 2300 kcal, 80 g protein, 45 g fat. Goal for weight gain - 3000 kcal. Digestive issues: diarrhea improved but dislikes full feeling. Difficulty increasing calories at meals. Overall, Harvinder is doing well, maintaining his weight and BMI still wnl. Encouraged him to add 500 calories daily with beverages - oat milk, juice, sweetened beverage. Also, would recommend from daily protein shake such as [employer] 1.5 Peptide shake- easily digestible, provides 500 calories per serving, 23 g protein. Follow up planned 05/26/22 at 1 pm.
== END 2022-03-18 03:52 | disposition home or self-care (01) ==
LOC: DS 03:51
PROVIDERS: PCP Family Medicine; Visit Provider Dietitian, Registered
DX: R63.4 Abnormal weight loss (principal); E63.8 Other specified nutritional deficiencies; C90.00 Multiple myeloma not having achieved remission; Z92.21 Personal history of antineoplastic chemotherapy; Z71.3 Dietary counseling and surveillance
CPT/HCPCS: 97803

== ENCOUNTER 2022-04-02 01:35 | Outpatient (RCR) | payer BC, SELFPAY ==
[2022-04-02] MEDS: Normal Saline Flush 10 ML SYR IVP (09:47)
[2022-04-02 09:55] LABS: Abs Immature Grans 0.02 10^3/uL (0.0-0.06); Absolute Basophil Count 0.02 10^3/uL (0.0-0.2); Absolute Eosinophil Count 0.05 10^3/uL (0.0-0.7); Absolute Lymphocyte Count 0.91 10^3/uL (1.2-3.4); Absolute Monocyte Count 0.49 10^3/uL (0.1-0.8); Absolute Neutrophil Count 6.11 10^3/uL (1.2-6.7); Basophils % 0.3; Eosinophils % 0.7; HCT 40.1 % (40.0-50.0); HGB 13.4 g/dL (13.5-17.5); Immature Grans % 0.3; MCH 31.2 pg (27.0-33.0); MCHC 33.4 % (32.0-36.0); MCV 93 fL (80-95); MPV 11.5 fL (8.0-11.0); Monocytes % 6.4; Neutrophils % 80.3; Platelet Count 154 10^3/uL (130-400); RDW-SD 41.5 fL
[2022-04-02 10:12] LABS: ALT 14 U/L (16-63); AST 15 U/L (15-37); Albumin 3.9 g/dL (3.4-5.0); Alkaline Phosphatase 90 U/L (46-116); Anion Gap 6.3 mmol/L (3-11); BUN 15 mg/dL (7-18); Bilirubin, Total 0.7 mg/dL (0.2-1.0); CO2 28.7 mmol/L (21.0-32.0); CREATININE 0.9 mg/dL (0.70-1.30); Calcium 8.9 mg/dL (8.5-10.1); Chloride 105 mmol/L (98-107); Estimated GFR 97.17 (mL/min/1.73m2); Glucose 127 mg/dL (74-106); Potassium 4.1 mmol/L (3.5-5.1); Sodium 140 mmol/L (136-145); Total Protein 6.1 g/dL (6.4-8.2)
[2022-04-03 11:13] LABS: IgA <13 mg/dL (85-499); IgG 274 mg/dL (610-1616); IgM <12 mg/dL (35-242)
[2022-04-04 14:48] LABS: Albumin 70.3 % (55.8-66.1); Comment (See Note); Total Protein 5.7 g/dL (6.3-8.2)
[2022-04-04 14:58] LABS: Immunotyping, Serum (See Note)
== END 2022-04-12 23:59 | disposition home or self-care (01) ==
LOC: INF 01:35
PROVIDERS: PCP Family Medicine; Visit Provider Internal Medicine Hematology & Oncology
DX: C90.00 Multiple myeloma not having achieved remission (principal); Z45.2 Encounter for adjustment and management of vascular access device
CPT/HCPCS: 36591; 80053; 82784; 84165; 85025; 86320

== ENCOUNTER 2022-04-25 11:27 | Outpatient (REF) | payer BC, SELFPAY ==
[2022-04-27 10:57] LABS: COVID-19 RT-PCR UVMMC Result Negative (Negative)
== END 2022-04-25 11:28 | disposition home or self-care (01) ==
LOC: LBN 11:27
PROVIDERS: PCP Family Medicine; Visit Provider Physician Assistant Medical
DX: Z20.822 Contact with and (suspected) exposure to COVID-19 (principal); Z52.011 Autologous donor, stem cells
CPT/HCPCS: U0003

== ENCOUNTER 2022-06-04 01:32 | Outpatient (RCR) | payer BC, SELFPAY ==
[2022-05-21] MEDS: Normal Saline Flush 10 ML SYR IVP (09:35)
[2022-05-21 09:51] LABS: Abs Immature Grans 0.05 10^3/uL (0.0-0.06); Absolute Basophil Count 0.03 10^3/uL (0.0-0.2); Absolute Lymphocyte Count 0.22 10^3/uL (1.2-3.4); Absolute Neutrophil Count 1.82 10^3/uL (1.2-6.7); Basophils % 1.1; HCT 33.5 % (40.0-50.0); HGB 11.8 g/dL (13.5-17.5); Immature Grans % 1.8; Lymphocytes % 7.8; MCH 30.6 pg (27.0-33.0); MCHC 35.2 % (32.0-36.0); MCV 87 fL (80-95); MPV 11.1 fL (8.0-11.0); Monocytes % 24.8; Neutrophils % 64.5; Platelet Count 175 10^3/uL (130-400); RBC 3.86 10^6/uL (4.36-5.78); RDW 12.9 % (11.8-14.1); WBC 2.82 10^3/uL (4.4-10.8)
[2022-05-21 10:11] LABS: ALT 18 U/L (16-63); AST 20 U/L (15-37); Albumin 3.4 g/dL (3.4-5.0); Alkaline Phosphatase 85 U/L (46-116); Anion Gap 8.1 mmol/L (3-11); BUN 6 mg/dL (7-18); Bilirubin, Total 0.4 mg/dL (0.2-1.0); CO2 28.9 mmol/L (21.0-32.0); CREATININE 0.9 mg/dL (0.70-1.30); Chloride 106 mmol/L (98-107); Estimated GFR 97.17 (mL/min/1.73m2); Glucose 116 mg/dL (74-106); Sodium 143 mmol/L (136-145); Total Protein 5.8 g/dL (6.4-8.2)
[2022-05-21 10:15] LABS: Potassium 2.8 mmol/L (3.5-5.1)
[2022-05-22 10:54] LABS: IgA <13 mg/dL (85-499); IgG 222 mg/dL (610-1616); IgM <12 mg/dL (35-242)
[2022-05-22 15:06] LABS: Albumin g/dL 3.5 g/dL (3.6-5.2); Comment (See Note); Total Protein 5.4 g/dL (6.3-8.2)
[2022-05-22 15:08] LABS: Immunotyping, Serum (See Note)
[2022-05-28] MEDS: Normal Saline Flush 10 ML SYR IVP (11:33)
[2022-05-28 11:56] LABS: Abs Immature Grans 0.02 10^3/uL (0.0-0.06); Absolute Basophil Count 0.05 10^3/uL (0.0-0.2); Absolute Lymphocyte Count 0.59 10^3/uL (1.2-3.4); Absolute Monocyte Count 0.75 10^3/uL (0.1-0.8); Absolute Neutrophil Count 2.29 10^3/uL (1.2-6.7); Basophils % 1.4; HCT 36.6 % (40.0-50.0); HGB 12.6 g/dL (13.5-17.5); Immature Grans % 0.5; Lymphocytes % 15.9; MCH 30.7 pg (27.0-33.0); MCHC 34.4 % (32.0-36.0); MCV 89 fL (80-95); MPV 10.7 fL (8.0-11.0); Monocytes % 20.3; Neutrophils % 61.9; Platelet Count 184 10^3/uL (130-400); RBC 4.11 10^6/uL (4.36-5.78)
[2022-05-28 12:19] LABS: ALT 17 U/L (16-63); AST 20 U/L (15-37); Albumin 3.7 g/dL (3.4-5.0); Alkaline Phosphatase 81 U/L (46-116); Anion Gap 7.9 mmol/L (3-11); BUN 8 mg/dL (7-18); Bilirubin, Total 0.6 mg/dL (0.2-1.0); CO2 28.1 mmol/L (21.0-32.0); CREATININE 0.8 mg/dL (0.70-1.30); Calcium 9.4 mg/dL (8.5-10.1); Chloride 101 mmol/L (98-107); Estimated GFR 100.69 (mL/min/1.73m2); Glucose 113 mg/dL (74-106); Potassium 4.3 mmol/L (3.5-5.1); Sodium 137 mmol/L (136-145); Total Protein 5.9 g/dL (6.4-8.2)
[2022-06-04] MEDS: Normal Saline Flush 10 ML SYR IVP (11:41)
[2022-06-04 11:48] LABS: Abs Immature Grans 0.02 10^3/uL (0.0-0.06); Absolute Basophil Count 0.02 10^3/uL (0.0-0.2); Absolute Eosinophil Count 0.01 10^3/uL (0.0-0.7); Absolute Lymphocyte Count 0.89 10^3/uL (1.2-3.4); Absolute Monocyte Count 0.78 10^3/uL (0.1-0.8); Absolute Neutrophil Count 2.61 10^3/uL (1.2-6.7); Basophils % 0.5; Eosinophils % 0.2; HCT 37.2 % (40.0-50.0); HGB 12.7 g/dL (13.5-17.5); Immature Grans % 0.5; Lymphocytes % 20.6; MCH 31.1 pg (27.0-33.0); MCHC 34.1 % (32.0-36.0); MCV 91 fL (80-95); Neutrophils % 60.2; Platelet Count 168 10^3/uL (130-400); RBC 4.09 10^6/uL (4.36-5.78); RDW 14.4 % (11.8-14.1); WBC 4.33 10^3/uL (4.4-10.8)
[2022-06-04 12:12] LABS: ALT 20 U/L (16-63); AST 18 U/L (15-37); Albumin 3.5 g/dL (3.4-5.0); Alkaline Phosphatase 76 U/L (46-116); Anion Gap 5.8 mmol/L (3-11); BUN 8 mg/dL (7-18); Bilirubin, Total 0.6 mg/dL (0.2-1.0); CO2 28.2 mmol/L (21.0-32.0); CREATININE 0.9 mg/dL (0.70-1.30); Calcium 9.1 mg/dL (8.5-10.1); Chloride 106 mmol/L (98-107); Estimated GFR 97.17 (mL/min/1.73m2); Glucose 145 mg/dL (74-106); Potassium 4.1 mmol/L (3.5-5.1); Sodium 140 mmol/L (136-145); Total Protein 5.7 g/dL (6.4-8.2)
== END 2022-06-10 23:59 | disposition home or self-care (01) ==
LOC: INF 01:32
PROVIDERS: PCP Family Medicine; Visit Provider Internal Medicine Hematology & Oncology
DX: C90.00 Multiple myeloma not having achieved remission (principal); Z45.2 Encounter for adjustment and management of vascular access device
CPT/HCPCS: 36591; 80053; 82784; 86850; 86900; 86901; 84165; 84443; 85025; 86320; 86870

== ENCOUNTER 2022-07-02 02:29 | Outpatient (RCR) | payer BC, SELFPAY ==
[2022-06-18] MEDS: Normal Saline Flush 10 ML SYR IVP (10:49)
[2022-06-18 11:05] LABS: Abs Immature Grans 0.01 10^3/uL (0.0-0.06); Absolute Basophil Count 0.01 10^3/uL (0.0-0.2); Absolute Eosinophil Count 0.04 10^3/uL (0.0-0.7); Absolute Monocyte Count 0.52 10^3/uL (0.1-0.8); Absolute Neutrophil Count 3.15 10^3/uL (1.2-6.7); Basophils % 0.2; Eosinophils % 0.9; HCT 37.3 % (40.0-50.0); HGB 12.8 g/dL (13.5-17.5); Immature Grans % 0.2; Lymphocytes % 19.4; MCH 32.2 pg (27.0-33.0); MCHC 34.3 % (32.0-36.0); MCV 94 fL (80-95); MPV 10.5 fL (8.0-11.0); Monocytes % 11.2; Neutrophils % 68.1; Platelet Count 138 10^3/uL (130-400); RBC 3.97 10^6/uL (4.36-5.78); RDW 13.8 % (11.8-14.1); RDW-SD 47.4 fL; WBC 4.63 10^3/uL (4.4-10.8)
[2022-06-18 11:35] LABS: ALT 19 U/L (16-63); AST 17 U/L (15-37); Albumin 3.6 g/dL (3.4-5.0); Alkaline Phosphatase 77 U/L (46-116); Anion Gap 6.4 mmol/L (3-11); BUN 9 mg/dL (7-18); Bilirubin, Total 0.7 mg/dL (0.2-1.0); CO2 29.6 mmol/L (21.0-32.0); CREATININE 0.9 mg/dL (0.70-1.30); Calcium 9.3 mg/dL (8.5-10.1); Chloride 106 mmol/L (98-107); Estimated GFR 97.17 (mL/min/1.73m2); Glucose 125 mg/dL (74-106); Potassium 3.9 mmol/L (3.5-5.1); Sodium 142 mmol/L (136-145); Total Protein 5.8 g/dL (6.4-8.2)
[2022-07-02 10:33] LABS: Abs Immature Grans 0.01 10^3/uL (0.0-0.06); Absolute Basophil Count 0.02 10^3/uL (0.0-0.2); Absolute Eosinophil Count 0.04 10^3/uL (0.0-0.7); Absolute Lymphocyte Count 1.08 10^3/uL (1.2-3.4); Absolute Neutrophil Count 2.77 10^3/uL (1.2-6.7); Basophils % 0.5; Eosinophils % 0.9; HCT 40.7 % (40.0-50.0); HGB 13.7 g/dL (13.5-17.5); Immature Grans % 0.2; MCH 30.7 pg (27.0-33.0); MCHC 33.7 % (32.0-36.0); MCV 91 fL (80-95); MPV 10.1 fL (8.0-11.0); Monocytes % 9.3; Neutrophils % 64.1; Platelet Count 148 10^3/uL (130-400); RBC 4.46 10^6/uL (4.36-5.78); RDW 12.9 % (11.8-14.1); RDW-SD 43.1 fL; WBC 4.32 10^3/uL (4.4-10.8)
[2022-07-02] MEDS: Normal Saline Flush 10 ML SYR IVP (10:38)
[2022-07-02 10:48] LABS: ALT 19 U/L (16-63); AST 17 U/L (15-37); Albumin 3.8 g/dL (3.4-5.0); Alkaline Phosphatase 86 U/L (46-116); Anion Gap 4.4 mmol/L (3-11); BUN 9 mg/dL (7-18); Bilirubin, Total 0.7 mg/dL (0.2-1.0); CO2 29.6 mmol/L (21.0-32.0); CREATININE 0.9 mg/dL (0.70-1.30); Calcium 9.4 mg/dL (8.5-10.1); Chloride 107 mmol/L (98-107); Estimated GFR 97.17 (mL/min/1.73m2); Glucose 115 mg/dL (74-106); Potassium 4.2 mmol/L (3.5-5.1); Sodium 141 mmol/L (136-145); Total Protein 6.1 g/dL (6.4-8.2)
[2022-07-03 10:05] LABS: IgA <13 mg/dL (85-499); IgG 238 mg/dL (610-1616); IgM <12 mg/dL (35-242)
[2022-07-03 14:26] LABS: Albumin 69.8 % (55.8-66.1); Comment (See Note); Total Protein 5.7 g/dL (6.3-8.2)
[2022-07-04 15:14] LABS: Immunotyping, Serum (See Note)
== END 2022-07-11 23:59 | disposition home or self-care (01) ==
LOC: INF 02:29
PROVIDERS: PCP Family Medicine; Visit Provider Internal Medicine Hematology & Oncology
DX: Z45.2 Encounter for adjustment and management of vascular access device (principal); C90.00 Multiple myeloma not having achieved remission
CPT/HCPCS: 36591; 80053; 82784; 86900; 86901; 84165; 85025; 86320

== ENCOUNTER 2022-07-23 02:46 | Outpatient (RCR) | payer BC, SELFPAY ==
[2022-07-23] MEDS: Normal Saline Flush 10 ML SYR IVP (10:00)
[2022-07-23 10:19] LABS: Abs Immature Grans 0.01 10^3/uL (0.0-0.06); Absolute Basophil Count 0.02 10^3/uL (0.0-0.2); Absolute Eosinophil Count 0.03 10^3/uL (0.0-0.7); Absolute Lymphocyte Count 0.84 10^3/uL (1.2-3.4); Absolute Monocyte Count 0.41 10^3/uL (0.1-0.8); Absolute Neutrophil Count 2.21 10^3/uL (1.2-6.7); Basophils % 0.6; Eosinophils % 0.9; HCT 39.3 % (40.0-50.0); Immature Grans % 0.3; Lymphocytes % 23.9; MCH 30.2 pg (27.0-33.0); MCHC 33.1 % (32.0-36.0); MCV 91 fL (80-95); MPV 10.6 fL (8.0-11.0); Monocytes % 11.6; Neutrophils % 62.7; Platelet Count 136 10^3/uL (130-400); RBC 4.31 10^6/uL (4.36-5.78); RDW 12.2 % (11.8-14.1); RDW-SD 41.1 fL; WBC 3.52 10^3/uL (4.4-10.8)
[2022-07-23 10:33] LABS: ALT 20 U/L (16-63); AST 14 U/L (15-37); Albumin 3.7 g/dL (3.4-5.0); Alkaline Phosphatase 108 U/L (46-116); Anion Gap 4.4 mmol/L (3-11); BUN 11 mg/dL (7-18); Bilirubin, Total 0.5 mg/dL (0.2-1.0); CO2 29.6 mmol/L (21.0-32.0); CREATININE 0.9 mg/dL (0.70-1.30); Calcium 9.6 mg/dL (8.5-10.1); Chloride 108 mmol/L (98-107); Estimated GFR 97.17 (mL/min/1.73m2); Glucose 90 mg/dL (74-106); Potassium 4.2 mmol/L (3.5-5.1); Sodium 142 mmol/L (136-145); Total Protein 6.2 g/dL (6.4-8.2)
== END 2022-08-10 23:59 | disposition home or self-care (01) ==
LOC: INF 02:46
PROVIDERS: PCP Family Medicine; Visit Provider Internal Medicine Hematology & Oncology
DX: Z45.2 Encounter for adjustment and management of vascular access device (principal); C90.00 Multiple myeloma not having achieved remission
CPT/HCPCS: 36591; 80053; 85025

== ENCOUNTER 2022-09-18 00:09 | Inpatient (IN) | payer BC, SELFPAY ==
[2022-09-18] VITALS (155 sets, daily range): BP systolic 73–135; BP diastolic 37–92; PULSE 55–123; RESP 0–33; TEMP 36–37.7; O2SAT 82–100
--- NOTE | 2022-09-18 00:12 | W.ED.GENAD ---
Discharge Plan Disposition Patient Disposition: Admit to [facility] Discharge Details Clinical Impression: Hypomagnesemia, MAY (acute kidney injury), Fever, Leukocytosis, Normocytic anemia, Hypocalcemia Admit Date/Time: 09/18/22 03:55 Admit Provider: Imtiaz Dhillon Attending Provider: Imtiaz Dhillon Primary Care Provider: Ana M Mota ED Provider: Imtiaz Morales Medical Decision Making This is an overall well-appearing but markedly hypotensive 62-year-old chemotherapy patient with history of multiple myeloma now with prehospital fever up to 101 ?F as taken orally concerning for sepsis. Will obtain urine, swab for COVID influenza and RSV, and obtain a chest x-ray. Will treat empirically with 2 g of ceftriaxone and vancomycin after drawing 2 sets of blood cultures. We will also obtain a lactate to guide resuscitation and assess for septic shock. Patient's initial MAP was 61. He did report that he vomited twice earlier today. Per chart review [facility] he has a normal EF so we will provide 1 L of IV fluid. He is having significant ectopy on the monitor and as multiple PVCs on his twelve-lead ECG. He reports a Holter monitor in the past showing a 10% burden of PVCs. We will check a troponin though patient denies chest pain. Soft nontender abdomen so I am not concerned for intra-abdominal infection. 1:37 AM Comprehensive metabolic panel showing MAY with a creatinine of 1.4. Significant leukocytosis. Mild normocytic anemia similar to prior. No thrombocytopenia. VBG with no acidemia nor hypercarbia. Troponin negative. Normal reassuring lactate. Mild hypomagnesemia. Will treat with 2 g IV magnesium given frequent PVCs. 1:52 AM Following first liter of fluids patient's map was 58 for which I started him on peripheral norepinephrine while hanging a second liter. 2:15 AM I spoke with Dr. Henao from heme-onc at [facility] who agreed that local management would be the best initial approach. 2:35 AM I spoke to Dr. Dhillon who agreed to accept the patient to the hospital floor status after a second liter IV does not require pressors. I will place holding orders after the received in the second liter. 2:53 AM Patient received a total of 3 L of IV fluids. He is on low-dose peripheral norepinephrine at 5 mcg/min. 3:15 AM Patient's MAP off of pressors was still 50. We will provide an additional 500 cc of crystalloid. He continues to be mentating well. He does not yet feel he needs to urinate. Will repeat a lactate and repeat basic metabolic panel. 3:41 AM Repeat lactate normal at 1.0 mmol/L. 3:53 AM Repeat basic metabolic panel with mild hypocalcemia for which patient will receive IV repletion. Renal function mildly improved. I spoke again with Dr. Dhillon and he agreed to accept the patient to the ICU. I will place bed request. Chronic conditions affecting the care of the patient: Multiple myeloma stem cell transplant and chemotherapy History obtained from an outside historian: N/A External record review: [facility] EMR Diagnostic interpretations performed by me: [Per my independent interpretation chest x-ray shows:] No acute cardiopulmonary process on single view chest with right-sided chest wall port in place. Per my independent interpretation EKG shows: Narrow complex sinus tachycardia at a rate of 107. Normal axis. Mildly widened QRS. CO and QTc within normal limits. No ST segment abnormalities. T wave flattening in aVL similar to prior dated last year. Full PVCs similar to prior. No acute injury pattern. Medications: Ceftriaxone Social determinants of health affecting disposition: N/A Management discussed with: Heme-onc at [facility] and, Treatment/interventions considered: Transfer to [facility] Response to therapies provided: Patient ultimately made urine in the ED HPI General Date/Time Provider Initiated Documentation: 09/18/22 00:10. 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 Patient reports that he received an infusion today. He was told by his heme-onc team to return to the emergency department if he develops a fever. This afternoon he developed a fever up to 101 ?F as taken orally. He has had no cough nor any shortness of breath. He denies chest pain. He did endorse lightheadedness and dizziness. He was nauseous and vomited twice this afternoon. He does not have any abdominal pain. He reports frequent PVCs on Holter monitor. He reports having had a normal bowel movement earlier today. No recent falls. Denies any open sores and rashes. Related Data Home Medications Medication Instructions Recorded Confirmed levothyroxine 88 mcg tablet 88 mcg PO DAILY #90 tab-caps 04/16/22 09/18/22 (Synthroid) acyclovir 400 mg tablet 800 mg PO BID 06/26/22 09/18/22 amoxicillin 500 mg capsule 2,000 mg PO DIRECTED 07/31/22 09/18/22 sulfamethoxazole-trimethoprim 400 mg PO QWEEK 07/31/22 09/18/22 [Bactrim] aspirin 325 mg tablet,delayed See Rx Instructions .Route .COMPLEX 09/18/22 09/18/22 release pomalidomide 4 mg capsule See Rx Instructions .Route .COMPLEX 09/18/22 09/18/22 Previous Rx's Medication Instructions Recorded levothyroxine 88 mcg tablet 88 mcg PO DAILY #90 tab-caps 04/16/22 (Synthroid) Allergies Allergy/AdvReac Type Severity Reaction Status Date / Time methotrexate AdvReac Intermediate Flu like Verified 08/28/22 09:38 symptoms oxycodone AdvReac Intermediate HALLUCINATIONS Verified 08/28/22 09:38 & Nausea General YANA: 2 PFSH All Active Problems Hypomagnesemia (Acute) MAY (acute kidney injury) (Acute) Fever (Acute) Leukocytosis (Acute) Normocytic anemia (Acute) Hypocalcemia (Acute) Cataracts, bilateral (Acute) Hypothyroidism (Acute 04/25/16) Nevus, non-neoplastic (Acute) multiple nevi Rheumatoid arthritis with positive rheumatoid factor (Acute 01/14/17) Peripheral neuropathy (Acute) Anxiety (Chronic) Psoriasis (Chronic) Bone pain (Acute) Lytic bone lesions on xray (Acute) Multiple myeloma (Acute ~04/2021) Managed by Dr. Singleton at [facility]. Weight loss, non-intentional (Acute) Stem cells transplant status (Acute ~03/2022) Medical History Family history of malignant neoplasm of prostate father; grandfather Hyperthyroidism Iron deficiency anemia (11/03/12) extensive w/u. no cause found vegetarian. perhaps related to Fe def. Mitral valve regurgitation repaired Surgical History History of colonoscopy (~05/30/19) History of hernia repair inguinal bilat History of mitral valve repair S/P vasectomy Status post adenoidectomy Status post tonsillectomy Family History Mother Hyperlipidemia Father , AGE 83 Essential hypertension Hyperlipidemia Prostate cancer Sister No problems noted. Sister Depression Brother No problems noted. Maternal Grandfather , AGE 82 No problems noted. Paternal Grandfather , AGE 72 Prostate cancer Maternal Grandmother , AGE 78 No problems noted. Paternal Grandmother , AGE 88 Cancer Daughter Depression Daughter No problems noted. 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[employer] [facility] Pets and animals: Yes Pets and animals: cat(s) Sexually active: No Do you think of yourself as: straight/heterosexual Current gender identity: male Other: currently going through a divorce What is your relationship status?: How often do you talk on the phone with friends or family?: twice per week How often do you get together with friends or relatives?: once per week How often do you attend jain or hoahaoism services?: decline to answer Do you belong to any clubs or organized social groups?: no Panel score (0-1 are the most socially isolated patients): 1 What type of physical activity do you participate in: walking Duration: 15-30 minutes/day Frequency: daily Charito/Episcopalian: No preference Special charito needs: No Seatbelt use: always Helmet use: Yes Helmet use: always Drive intox or ride w/intox long haul truck driver: No Do you feel safe at home: Yes Do you feel safe in your relationship?: Yes Exam Narrative Exam Narrative: General: Well-appearing in no acute distress speaking in complete sentences. Head: Normocephalic, atraumatic. Eye: Pupils equal, round reactive to light. Extraocular eye movements intact. No conjunctival injection. No scleral icterus. Ear, nose, mouth, throat: Grossly normal inspection. Normal voice, handling secretions normally. Neck: Trachea midline. Cardiovascular: Well-perfused distal extremities. Rapid regular rate with frequent extra beats. Chest wall: Right upper chest wall port in place. No surrounding erythema nor tenderness. Respiratory: Nonlabored respiration. Clear lungs bilaterally. Gastrointestinal: Nondistended abdomen. Soft nondistended. Musculoskeletal: No edema. Moving all 4 extremities spontaneously. Skin: Normal for age and race, grossly normal temperature and turgor. No acute rash. Neurologic: Alert and appropriate, no apparent acute deficits. Psychiatric: Mood and manner are appropriate. Grooming and personal hygiene are appropriate.
--- NOTE | 2022-09-18 00:15 | DI.RAD_ITS ---
Exam(s) XR PORTABLE CHEST AP EXAM: XR PORTABLE CHEST AP CLINICAL HISTORY: Sepsis TECHNIQUE: 2D digital imaging was performed of the chest. One image was obtained. An AP view was ob tained. COMPARISON: CR XR RIBS LT W PA LAT CHEST from 03/25/2021 FINDINGS: MEDIASTINUM: Normal. HEART: Normal. There is a heart valve replacement again seen. PULMONARY VASCULATURE: Normal. LUNGS: Clear. PLEURAL SPACE: No pleural effusion or pneumothorax. BONE:Within normal limits for the patient's age. OTHER FINDINGS:There is a right chest port which has been placed. The tip of the catheter is in good position at the junction of the superior vena cava and right atrium. IMPRESSION: No acute pulmonary findings. DATA REPOSITORY: RADIATION DOSE DELIVERED:
--- NOTE | 2022-09-18 00:15 | RT.EKG_ITS ---
APPROVED REPORT Exam: Resting ECG Reason for Exam: Tachycardia Patient Location: E HR:107 bpm ECG Measurements Heart Rate 107 AXIS NV 168 P 41 QRSd 102 QRS 56 QT 350 T 53 QTc 466 Conclusion Sinus tachycardia...rate> 99 Ventricular trigeminy...trigeminy string>6 w/ V complexes Probable left atrial enlargement...P >50mS, <-0.10mV V1 Narrow complex sinus tachycardia at a rate of 107. Normal axis. Mildly widened QRS. NV and QTc wit hin normal limits. No ST segment abnormalities. T wave flattening in aVL similar to prior dated las t year. Full PVCs similar to prior. No acute injury pattern.
[2022-09-18 00:44] LABS: BE (Venous) 2 mmol/L (-2-3); HCO3 (Venous) 26 mmol/L (23-28); O2 Sat (Venous) 77 %; TCO2 (Venous) 23 mmol/L (24-29); pCO2 (Venous) 37 mmHg (41-51); pH (Venous) 7.45 (7.31-7.41); pO2 (Venous) 38 mmHg
[2022-09-18 00:46] LABS: Lactate 1.4 mmol/L (0.6-1.4)
[2022-09-18 00:48] LABS: Abs Immature Grans 0.22 10^3/uL (0.0-0.06); Absolute Basophil Count 0.07 10^3/uL (0.0-0.2); Absolute Monocyte Count 0.72 10^3/uL (0.1-0.8); Basophils % 0.3; HCT 38.3 % (40.0-50.0); HGB 13.2 g/dL (13.5-17.5); Immature Grans % 0.9; Lymphocytes % 0.9; MCH 30.6 pg (27.0-33.0); MCHC 34.5 % (32.0-36.0); MCV 89 fL (80-95); MPV 10.5 fL (8.0-11.0); Monocytes % 2.9; Platelet Count 142 10^3/uL (130-400); RBC 4.31 10^6/uL (4.36-5.78); RDW-SD 39.8 fL
[2022-09-18] MEDS: Normal Saline 1,000 ML 1000 ML IV ×2 (00:48→01:48)
[2022-09-18] MEDS: cefTRIAXone 2 GM/50 ML BAG IVPB ×2 (00:50→21:38)
[2022-09-18] MEDS: ACETAMINOPHEN 1,000 MG/100 ML BTL 400 MG IVPB (00:50)
[2022-09-18 00:56] LABS: Absolute Lymphocyte Count 0.22 10^3/uL (1.2-3.4); Absolute Neutrophil Count 23.66 10^3/uL (1.2-6.7)
[2022-09-18 00:57] LABS: Diff Comment Agrees w/ Instrument; RBC Morphology Normal
[2022-09-18 01:00] LABS: Magnesium 1.7 mg/dL (1.8-2.4)
[2022-09-18 01:06] LABS: ALT 15 U/L (16-63); AST 17 U/L (15-37); Albumin 3.7 g/dL (3.4-5.0); Alkaline Phosphatase 94 U/L (46-116); Anion Gap 9.7 mmol/L (3-11); BUN 14 mg/dL (7-18); Bilirubin, Total 1.2 mg/dL (0.2-1.0); CO2 25.3 mmol/L (21.0-32.0); CREATININE 1.4 mg/dL (0.70-1.30); Calcium 8.9 mg/dL (8.5-10.1); Chloride 104 mmol/L (98-107); Estimated GFR 57.18 (mL/min/1.73m2); Glucose 112 mg/dL (74-106); Potassium 3.7 mmol/L (3.5-5.1); Sodium 139 mmol/L (136-145); Troponin I < 50 ng/L (<or=60)
[2022-09-18] MEDS: VANCOMYCIN 1,500 MG in Normal Saline 500 ML 333.3333 MG IVPB (01:09)
[2022-09-18 01:25] LABS: COVID-19 PCR Negative (Negative); Influenza A PCR Negative (Negative); Influenza B PCR Negative (Negative); RSV PCR Negative (Negative)
[2022-09-18 01:37] LABS: Source Nasopharynx
[2022-09-18] MEDS: MAGNESIUM SULFATE 2 GM/50 ML BAG IVPB (02:01)
[2022-09-18] MEDS: Norepinephrine in D5W 8 MG/250 ML BAG 9.375 MG IV (02:15)
--- NOTE | 2022-09-18 02:35 | NUR.NOTE ---
Nursing Note:LATE ENTRY pt comes to the ED after noticing a fever of 101 at home. he was at the cancer ctr today receiving his chemo tx. stated he felt fine all day and still feels fine, but noticed he felt hot. The pt arrives and requested his port to be accessed on his right upper chest. the pt was given poc and advised that he would be staying overnight in the hospital for low BP. Pt had x2 sets blood cultures, allowed for another IV to be placed for IV meds.
--- NOTE | 2022-09-18 02:41 | NUR.NOTE ---
Nursing Note:pt given tuna sandwich and crackers, states no urge to urinate at time, is aware need to give urine sample
--- NOTE | 2022-09-18 02:49 | DI.VRAD_ITS ---
PROCEDURE INFORMATION: Exam: XR Chest Exam date and time: 09/18/2022 1:22 AM Age: 62 years old Clinical indication: Other: Sepsis TECHNIQUE: Imaging protocol: Radiologic exam of the chest. Views: 1 view. COMPARISON: No relevant prior studies are available for comparison. FINDINGS: Tubes, catheters and devices: Right chest wall port catheter terminates in the expected location of the superior vena cava. Mitral valve replacement. Lungs: No focal consolidation seen. Pleural spaces: No large pleural effusion seen. Heart/Mediastinum: See Tubes, catheters and devices finding. Bones/joints: Grossly unremarkable. IMPRESSION: No acute findings to explain reported symptoms. Dictated and Authenticated by: Stephanie Mendiola MD. Ordering:ELIANE Kitchen MD
[2022-09-18] MEDS: Normal Saline 500 ML IV (03:30)
--- NOTE | 2022-09-18 03:33 | NUR.NOTE ---
Nursing Note: pt remains on norepi drip, trial stop unsuccessful. pt received x3 liters NS, 500ml NS bolus infusing pt still has no urge to urinate, at bedside
[2022-09-18 03:41] LABS: Troponin I < 50 ng/L (<or=60)
[2022-09-18 03:46] LABS: Anion Gap 8.7 mmol/L (3-11); BUN 13 mg/dL (7-18); CO2 23.3 mmol/L (21.0-32.0); CREATININE 1.3 mg/dL (0.70-1.30); Calcium 7.5 mg/dL (8.5-10.1); Chloride 109 mmol/L (98-107); Glucose 124 mg/dL (74-106); Potassium 3.6 mmol/L (3.5-5.1); Sodium 141 mmol/L (136-145)
[2022-09-18] MEDS: Calcium Gluconate 4.65 MEQ/10 ML VIAL 9.3 MG IVP (04:18)
[2022-09-18 04:42] LABS: Bilirubin Negative (Negative); Blood Negative (Negative); Clarity Clear (Clear); Glucose Negative (Negative); Ketones Negative (Negative); Leukocyte Esterase Negative (Negative); Nitrite Negative (Negative); Urobilinogen 0.2 mg/dL (Up to 0.2)
--- NOTE | 2022-09-18 06:01 | HPE_ITS ---
Date of service: 09/18/22 Time of Service: 06:01 Assessment and Plan Assessment and plan (1) Sepsis: Status: Acute Assessment and plan: Harvinder presented after a fever at home with hypotension and tachycardia and a significant leukocytosis which all raise concern for sepsis or another cause of systemic inflammatory response. There are no obvious sources based on exam, history, or basic assessment including chest x-ray and urinalysis. This could be an inflammatory reaction to his maintenance therapy, but this is less likely given he has tolerated the same medication in the past. There is no evidence of reactivation of his rheumatoid arthritis. He is at risk for tick bourne illness but his labs are not consistent with somthing like anaplasmosis that could cause his symptoms. He has no hypoxia to suggest occult PJP and no focal pain or rash to suggest herpetic infection. Case was reviewed with heme/onc in the emergency room, will continue vancomycin and ceftriaxone per their recommendations while we await blood cultures. He has had 3 liters of IV fluids and is currently on norepinephrine drip Stay vigilent for signs of localized infection (2) MAY (acute kidney injury): Status: Acute Assessment and plan: This likely reflects organ dysfunction from hypotension as above. It did improve slightly with fluids, monitor urine output and follow. (3) Hypomagnesemia: Status: Acute Assessment and plan: Replaced in ED, follow (4) Normocytic anemia: Status: Acute Assessment and plan: Mild, stable, a/w his myeloma. (5) Hypocalcemia: Status: Acute Assessment and plan: This was noted on repeat labs after hydration, not at presentation. I think it is likely spurious (6) Multiple myeloma: Status: Acute Assessment and plan: Holding his maintenance therapy, plan to check in with heme/onc Continue acyclovir and bactrim prophylaxis (7) DVT prophylaxis: Status: Acute Assessment and plan: He has been active and this is not clearly high risk despite cancer, but if he ends up immobilized for more than 1-2 days (8) Discharge planning issues: Status: Acute Assessment and plan: ICU status with hypotension on a pressor. He is full code. History of Present Illness History of Present Illness Chief Complaint: fever Narrative: 62 yo M with multiple myeloma s/p autologus stem cell transplant, recently starting maintenance therapy with pamolidamide and carfilzomib who presented with a fever and chills the evening prior to admission. He had received an infusion the morning his symptoms started. He felt well until about 5pm, when he felt a cold chill like he couldn't warm up after being outside. Shortly after he got nauseous and vomited twice. He called his oncologist team who recommend he rest and monitor for fever. At about 10pm he got up to drink some water and checked his tempurature and it was 101 degrees F. He felt a little chilled, slight diffuse headache, and mildly lightheaded, but otherwise well. He was instructed to come to the emergency room. He has no known sick contacts at home. He ate a normal breakfast and lunch the day prior to admission. Normal stools for the past 2 days, even though he often has loose stools. 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 He has been around deer ticks but hasn't noted a bite or recent rash. Review of Systems Constitutional Constitutional: Reports as per HPI, Denies anorexia, Denies body ache(s), Denies weakness and Denies weight loss (though has had trouble regaining weight ) Eyes Eyes: Reports change in vision (recent cataracts, no acute change) and Denies irritation ENT Ears, Nose, Mouth, and Throat: Denies nasal congestion, Denies nasal discharge and Denies sore throat Cardiovascular Cardiovascular: Denies chest pain, Denies pedal edema, Denies palpitations, Denies dyspnea and Denies orthopnea Respiratory Respiratory: Denies cough, Denies excessive phlegm production, Denies dyspnea and Denies wheezing Gastrointestinal Gastrointestinal: Reports as per HPI, Denies abdominal pain, Denies melena, Denies hematochezia, Denies heartburn and Denies hematemesis Genitourinary Genitourinary: Denies hematuria, Denies dysuria and Denies urinary incontinence Musculoskeletal Musculoskeletal: Reports back pain (low back, not severe or new), Denies arthralgias and Denies joint swelling Integumentary/Breasts Skin/Breast: Denies rash and Denies skin ulcer Neurologic Neurologic: Denies confusion, Denies sensory deficit and Denies weakness Psychiatric Psychiatric: Denies confusion, Denies mood swings and Reports panic attacks Endocrine Endocrine: Denies palpitations Hematologic/Lymphatic Hematologic/Lymphatic: Denies easy bleeding and Denies lymphadenopathy Allergic/Immunologic Allergic/Immunologic: Denies wheezing PFSH All Active Problems Sepsis (Acute) Discharge planning issues (Acute) DVT prophylaxis (Acute) Hypomagnesemia (Acute) MAY (acute kidney injury) (Acute) Fever (Acute) Leukocytosis (Acute) Normocytic anemia (Acute) Hypocalcemia (Acute) Cataracts, bilateral (Acute) Hypothyroidism (Acute 04/25/16) Nevus, non-neoplastic (Acute) multiple nevi Rheumatoid arthritis with positive rheumatoid factor (Acute 01/14/17) Peripheral neuropathy (Acute) Anxiety (Chronic) Psoriasis (Chronic) Bone pain (Acute) Lytic bone lesions on xray (Acute) Multiple myeloma (Acute ~04/2021) Managed by Dr. Singleton at [facility] [place]. Weight loss, non-intentional (Acute) Stem cells transplant status (Acute ~03/2022) Medical History Family history of malignant neoplasm of prostate father; grandfather Hyperthyroidism Iron deficiency anemia (11/03/12) extensive w/u. no cause found vegetarian. perhaps related to Fe def. Mitral valve regurgitation repaired Surgical History History of colonoscopy (~05/30/19) History of hernia repair inguinal bilat History of mitral valve repair S/P vasectomy Status post adenoidectomy Status post tonsillectomy Family History Mother Hyperlipidemia Father , AGE 83 Essential hypertension Hyperlipidemia Prostate cancer Sister No problems noted. Sister Depression Brother No problems noted. Maternal Grandfather , AGE 82 No problems noted. Paternal Grandfather , AGE 72 Prostate cancer Maternal Grandmother , AGE 78 No problems noted. Paternal Grandmother , AGE 88 Cancer Daughter Depression Daughter No problems noted. 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 [employer] Pets and animals: Yes Pets and animals: cat(s) Sexually active: No Do you think of yourself as: straight/heterosexual Current gender identity: male Other: currently going through a divorce What is your relationship status?: How often do you talk on the phone with friends or family?: twice per week How often do you get together with friends or relatives?: once per week How often do you attend mormonism or hoahaoism services?: decline to answer Do you belong to any clubs or organized social groups?: no Panel score (0-1 are the most socially isolated patients): 1 What type of physical activity do you participate in: walking Duration: 15-30 minutes/day Frequency: daily Charito/Latter-Day: No preference Special charito needs: No Seatbelt use: always Helmet use: Yes Helmet use: always Drive intox or ride w/intox over the road driver: No Do you feel safe at home: Yes Do you feel safe in your relationship?: Yes Meds Allergies and Home Medications Allergies Allergy/AdvReac Type Severity Reaction Status Date / Time methotrexate AdvReac Intermediate Flu like Verified 08/28/22 09:38 symptoms oxycodone AdvReac Intermediate HALLUCINATIONS Verified 08/28/22 09:38 & Nausea Home Medications Medication Instructions Recorded Confirmed Type levothyroxine 88 mcg tablet 88 mcg PO DAILY #90 tab-caps 04/16/22 09/18/22 Rx (Synthroid) acyclovir 400 mg tablet 800 mg PO BID 06/26/22 09/18/22 History amoxicillin 500 mg capsule 2,000 mg PO DIRECTED 07/31/22 09/18/22 History sulfamethoxazole-trimethoprim 400 mg PO QWEEK 07/31/22 09/18/22 History [Bactrim] aspirin 325 mg tablet,delayed See Rx Instructions .Route .COMPLEX 09/18/22 09/18/22 History release pomalidomide 4 mg capsule See Rx Instructions .Route .COMPLEX 09/18/22 09/18/22 History Exam Narrative Exam Narrative: GEN: Alert and oriented, very pleasant and cooperative, gives linear history. No acute distress at rest. HEENT: Head atraumatic. Conjunctiva clear, no icterus. PEERL, EOMI. no rhinorrhea. MMM, OP benign. Neck is supple with no masses or lymphadenopathy, trachea midline LUNGS: CTAB with normal effort CV: RRR with some skipped beats, no murmurs, gallops, or rubs. ABD: +BS, soft, NT/ND EXT: no cyanosis, clubbing, or edema MSK: No joint redness or swelling. back is not tender to palpation along spinous processes NEURO: CN 2-12 grossly intact. Normal movement of 4 extremities. Normal speech and coordination SKIN: No rashes or open wounds. PSYCH: normal mood and affect Results Imaging Chest x-ray: report reviewed (no acute findings) Labs 09/18/22 00:35 09/18/22 03:25 Labs: Laboratory Results - last 24 hr 09/18/22 09/18/22 09/18/22 00:25 00:35 00:35 WBC RBC Hgb Hct MCV MCH MCHC RDW Plt Count MPV Immature Gran % Neutrophils % Lymphocytes % Monocytes % Eosinophils % Basophils % Nucleated RBC % Absolute Neutrophils Absolute Lymphocytes Absolute Monocytes Absolute Eosinophils Absolute Basophils RBC Morphology VBG pH VBG pCO2 VBG pO2 VBG HCO3 VBG Total CO2 VBG O2 Saturation VBG Base Excess VBG Lactate 1.4 Sodium 139 Potassium 3.7 Chloride 104 Carbon Dioxide 25.3 Anion Gap 9.7 BUN 14 Creatinine 1.4 H Est GFR (CKD-EPI 2020) 57.18 Glucose 112 H Calcium 8.9 Magnesium Total Bilirubin 1.2 H AST 17 ALT 15 L Alkaline Phosphatase 94 Troponin I < 50 Total Protein 6.0 L Albumin 3.7 Urine Color Urine Clarity Urine pH Ur Specific [place] Urine Protein Urine Ketones Urine Blood Urine Nitrite Urine Bilirubin Urine Urobilinogen Ur Leukocyte Esterase Urine Glucose COVID-19 Source Nasopharynx SARS-CoV-2 (PCR) Negative Influenza Type A (PCR) Negative Influenza Type B (PCR) Negative RSV (PCR) Negative 09/18/22 09/18/22 09/18/22 00:35 00:35 00:35 WBC 24.90 H RBC 4.31 L Hgb 13.2 L Hct 38.3 L MCV 89 MCH 30.6 MCHC 34.5 RDW 12.0 Plt Count 142 MPV 10.5 Immature Gran % 0.9 Neutrophils % 95.0 Lymphocytes % 0.9 Monocytes % 2.9 Eosinophils % 0.0 Basophils % 0.3 Nucleated RBC % 0.0 Absolute Neutrophils 23.66 H Absolute Lymphocytes 0.22 L Absolute Monocytes 0.72 Absolute Eosinophils 0.00 Absolute Basophils 0.07 RBC Morphology Normal VBG pH 7.45 H VBG pCO2 37 L VBG pO2 38 VBG HCO3 26 VBG Total CO2 23 L VBG O2 Saturation 77 VBG Base Excess 2 VBG Lactate Sodium Potassium Chloride Carbon Dioxide Anion Gap BUN Creatinine Est GFR (CKD-EPI 2020) Glucose Calcium Magnesium 1.7 L Total Bilirubin AST ALT Alkaline Phosphatase Troponin I Total Protein Albumin Urine Color Urine Clarity Urine pH Ur Specific [place] Urine Protein Urine Ketones Urine Blood Urine Nitrite Urine Bilirubin Urine Urobilinogen Ur Leukocyte Esterase Urine Glucose COVID-19 Source SARS-CoV-2 (PCR) Influenza Type A (PCR) Influenza Type B (PCR) RSV (PCR) 09/18/22 09/18/22 09/18/22 03:16 03:25 03:25 WBC RBC Hgb Hct MCV MCH MCHC RDW Plt Count MPV Immature Gran % Neutrophils % Lymphocytes % Monocytes % Eosinophils % Basophils % Nucleated RBC % Absolute Neutrophils Absolute Lymphocytes Absolute Monocytes Absolute Eosinophils Absolute Basophils RBC Morphology VBG pH VBG pCO2 VBG pO2 VBG HCO3 VBG Total CO2 VBG O2 Saturation VBG Base Excess VBG Lactate 1.0 Sodium 141 Potassium 3.6 Chloride 109 H Carbon Dioxide 23.3 Anion Gap 8.7 BUN 13 Creatinine 1.3 Est GFR (CKD-EPI 2020) 62.50 Glucose 124 H Calcium 7.5 L Magnesium Total Bilirubin AST ALT Alkaline Phosphatase Troponin I < 50 Total Protein Albumin Urine Color Urine Clarity Urine pH Ur Specific [place] Urine Protein Urine Ketones Urine Blood Urine Nitrite Urine Bilirubin Urine Urobilinogen Ur Leukocyte Esterase Urine Glucose COVID-19 Source SARS-CoV-2 (PCR) Influenza Type A (PCR) Influenza Type B (PCR) RSV (PCR) 09/18/22 04:30 WBC RBC Hgb Hct MCV MCH MCHC RDW Plt Count MPV Immature Gran % Neutrophils % Lymphocytes % Monocytes % Eosinophils % Basophils % Nucleated RBC % Absolute Neutrophils Absolute Lymphocytes Absolute Monocytes Absolute Eosinophils Absolute Basophils RBC Morphology VBG pH VBG pCO2 VBG pO2 VBG HCO3 VBG Total CO2 VBG O2 Saturation VBG Base Excess VBG Lactate Sodium Potassium Chloride Carbon Dioxide Anion Gap BUN Creatinine Est GFR (CKD-EPI 2020) Glucose Calcium Magnesium Total Bilirubin AST ALT Alkaline Phosphatase Troponin I Total Protein Albumin Urine Color Yellow Urine Clarity Clear Urine pH 5.0 Ur Specific [place] 1.010 Urine Protein Negative Urine Ketones Negative Urine Blood Negative Urine Nitrite Negative Urine Bilirubin Negative Urine Urobilinogen 0.2 Ur Leukocyte Esterase Negative Urine Glucose Negative COVID-19 Source SARS-CoV-2 (PCR) Influenza Type A (PCR) Influenza Type B (PCR) RSV (PCR) Last Vital Signs Temp 36.6 C 09/18/22 05:56 Pulse 81 09/18/22 05:56 Resp 18 09/18/22 05:56 BP 112/45 L 09/18/22 05:56 Pulse Ox 97 09/18/22 05:56 Time Spent Time spent with Patient: >75 minutes Time was spent: preparing to see the patient(eg.review tests), obtaining and/or reviewing separately otained hiistory, ordering medications,tests, procedures, referring, communicating with other health rn progressive care unit, indepentently interpreting results and counseling the patient
[2022-09-18] MEDS: Levothyroxine 88 MCG TAB PO (06:48)
--- NOTE | 2022-09-18 08:26 | INITIAL_ITS ---
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 CURRENT FUNCTIONAL STATUS:: Pleasant in interaction. ADVANCE DIRECTIVES:: On file; Louise as agent. Has patient been provided with info about the portal/API?: Yes Did the patient sign up for the portal?: No CODE STATUS:: Full Code INSURANCE COVERAGE / FINANCIAL ISSUES:: BC/BS [place] CURRENT HOME/COMMUNITY SERVICES/EQUIPMENT:: Behavioral Health at PCP office, [facility] Oncologist; Dr. Singleton PRIMARY CARE PHYSICIAN:: Ana M Mota POTENTIAL DISCHARGE NEEDS:: Follow up appointments PATIENT/FAMILY EDUCATION NEEDS:: Review discharge instructions, discuss Ask Me Three. ANTICIPATED BARRIERS TO DISCHARGE:: None identified. TRANSPORTATION:: Via private vehicle with family. PLAN:: Consult with heme/onc; vancomycin and ceftriaxone per recommendations. Blood cultures pending. IVF, norepinephrine drip; closely monitored for signs of infection. Harvinder remains in the ICU, CM continues to follow. PFSH All Active Problems Sepsis (Acute) Discharge planning issues (Acute) DVT prophylaxis (Acute) Hypomagnesemia (Acute) MAY (acute kidney injury) (Acute) Fever (Acute) Leukocytosis (Acute) Normocytic anemia (Acute) Hypocalcemia (Acute) Cataracts, bilateral (Acute) Hypothyroidism (Acute 04/25/16) Nevus, non-neoplastic (Acute) multiple nevi Rheumatoid arthritis with positive rheumatoid factor (Acute 01/14/17) Peripheral neuropathy (Acute) Anxiety (Chronic) Psoriasis (Chronic) Bone pain (Acute) Lytic bone lesions on xray (Acute) Multiple myeloma (Acute ~04/2021) Managed by Dr. Singleton at [facility]. Weight loss, non-intentional (Acute) Stem cells transplant status (Acute ~03/2022) Medical History Family history of malignant neoplasm of prostate father; grandfather Hyperthyroidism Iron deficiency anemia (11/03/12) extensive w/u. no cause found vegetarian. perhaps related to Fe def. Mitral valve regurgitation repaired Surgical History History of colonoscopy (~05/30/19) History of hernia repair inguinal bilat History of mitral valve repair S/P vasectomy Status post adenoidectomy Status post tonsillectomy Family History Mother Hyperlipidemia Father , AGE 83 Essential hypertension Hyperlipidemia Prostate cancer Sister No problems noted. Sister Depression Brother No problems noted. Maternal Grandfather , AGE 82 No problems noted. Paternal Grandfather , AGE 72 Prostate cancer Maternal Grandmother , AGE 78 No problems noted. Paternal Grandmother , AGE 88 Cancer Daughter Depression Daughter No problems noted. 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 [employer] Pets and animals: Yes Pets and animals: cat(s) Sexually active: No Do you think of yourself as: straight/heterosexual Current gender identity: male Other: currently going through a divorce What is your relationship status?: How often do you talk on the phone with friends or family?: twice per week How often do you get together with friends or relatives?: once per week How often do you attend jew or buddhism services?: decline to answer Do you belong to any clubs or organized social groups?: no Panel score (0-1 are the most socially isolated patients): 1 What type of physical activity do you participate in: walking Duration: 15-30 minutes/day Frequency: daily Charito/Confucianist: No preference Special charito needs: No Seatbelt use: always Helmet use: Yes Helmet use: always Drive intox or ride w/intox cdl company driver: No Do you feel safe at home: Yes Do you feel safe in your relationship?: Yes
[2022-09-18] MEDS: Aspirin E.C. 325 MG TABEC PO (09:38)
[2022-09-18] MEDS: Acyclovir 400 MG TAB 800 MG PO ×2 (09:41→20:08)
[2022-09-18] MEDS: Normal Saline Flush 10 ML SYR IVP (09:53)
[2022-09-18] MEDS: VANCOMYCIN/WATER (PEG) 750 MG/150 ML BAG 150 MG IVPB ×2 (11:25→23:40)
[2022-09-18 11:48] LABS: Abs Immature Grans 0.12 10^3/uL (0.0-0.06); Absolute Basophil Count 0.03 10^3/uL (0.0-0.2); Absolute Eosinophil Count 0.02 10^3/uL (0.0-0.7); Absolute Lymphocyte Count 0.54 10^3/uL (1.2-3.4); Absolute Monocyte Count 0.45 10^3/uL (0.1-0.8); Absolute Neutrophil Count 15.64 10^3/uL (1.2-6.7); Basophils % 0.2; Eosinophils % 0.1; HCT 34.8 % (40.0-50.0); HGB 11.9 g/dL (13.5-17.5); Immature Grans % 0.7; Lymphocytes % 3.2; MCH 30.9 pg (27.0-33.0); MCHC 34.2 % (32.0-36.0); MCV 90 fL (80-95); Monocytes % 2.7; Neutrophils % 93.1; RBC 3.85 10^6/uL (4.36-5.78); RDW 12.5 % (11.8-14.1); RDW-SD 41.1 fL
[2022-09-18 11:53] LABS: Magnesium 2.4 mg/dL (1.8-2.4)
[2022-09-18 12:04] LABS: Diff Comment Diff Reviewed; Platelet Count 99 10^3/uL (130-400); RBC Morphology Normal
--- NOTE | 2022-09-18 14:41 | PHA.REVIEW2 ---
Pharmacy Admission Review - Admission Clinical Review (Last Reviewed 09/18/22 @ 06:15 by Imtiaz Dhillon) Sepsis (Acute) Discharge planning issues (Acute) DVT prophylaxis (Acute) Hypomagnesemia (Acute) MAY (acute kidney injury) (Acute) Fever (Acute) Leukocytosis (Acute) Normocytic anemia (Acute) Hypocalcemia (Acute) Multiple myeloma (Acute ~04/2021) methotrexate Adverse Reaction (Intermediate, Verified 08/28/22 09:38) Flu like symptoms oxycodone Adverse Reaction (Intermediate, Verified 08/28/22 09:38) HALLUCINATIONS & Nausea Resuscitation Status Full Code Height 6 ft 1 in Weight 70.4 kg - Renal Dosing Renal Dosing: BUN 13 mg/dL (7-18) 09/18/22 03:25 Creatinine 1.3 mg/dL (0.70-1.30) 09/18/22 03:25 Medications needing adjustments: Reviewed (eCrCl 59 ml/min, all orders dosed appropriately) - Anticoagulation Anticoagulation: Hgb 11.9 g/dL (13.5-17.5) L 09/18/22 11:40 Hct 34.8 % (40.0-50.0) L 09/18/22 11:40 Plt Count 99 10^3/uL (130-400) L 09/18/22 11:40 Creatinine 1.3 mg/dL (0.70-1.30) 09/18/22 03:25 DVT Prophylaxis: Reviewed (not at high risk, will order if remains immobile for 1-2 days per H&P - will remind MD) - Opiate Usage Evaluate Pain Scale/Pains Meds: N/A - Relevant Labs Sodium 141 mmol/L (136-145) 09/18/22 03:25 Potassium 3.6 mmol/L (3.5-5.1) 09/18/22 03:25 Chloride 109 mmol/L (98-107) H 09/18/22 03:25 Magnesium 2.4 mg/dL (1.8-2.4) 09/18/22 11:40 Electrolytes, C-Reactive P, ESR: Reviewed - DM Control DM Control: Glucose 124 mg/dL (74-106) H 09/18/22 03:25 DM Control: N/A - Cardiac Review Cardiac Review: Troponin I < 50 ng/L (<or=60) 09/18/22 03:16 BP, HR, EF%: Reviewed (norepi gtt was paused @ 0755 this AM, BPs have been stable since) - Qtc Review QTc: Reviewed (QTc 466 on admission) - IV to PO Switch IV Medications: Reviewed - Home Meds Home Med List reviewed: Reviewed Relevent Home Meds Not ordered & why?: all ordered - Current meds Current Medication Order Review: Reviewed (Not neutropenic, ceftriaxone + vanco for empiric antibiotic coverage - source remains unclear but patient is immunocompromised on oral chemotherapy)
[2022-09-19] VITALS (13 sets, daily range): BP systolic 117–128; BP diastolic 75–97; PULSE 56–72; RESP 14–20; TEMP 36.7–37.3; O2SAT 96
[2022-09-19] MEDS: Levothyroxine 88 MCG TAB PO (05:50)
[2022-09-19 06:44] LABS: Abs Immature Grans 0.02 10^3/uL (0.0-0.06); Absolute Basophil Count 0.01 10^3/uL (0.0-0.2); Absolute Eosinophil Count 0.09 10^3/uL (0.0-0.7); Absolute Lymphocyte Count 0.53 10^3/uL (1.2-3.4); Absolute Monocyte Count 0.33 10^3/uL (0.1-0.8); Absolute Neutrophil Count 6.47 10^3/uL (1.2-6.7); Basophils % 0.1; Eosinophils % 1.2; HCT 33.3 % (40.0-50.0); HGB 11.2 g/dL (13.5-17.5); Immature Grans % 0.3; Lymphocytes % 7.1; MCH 30.4 pg (27.0-33.0); MCHC 33.6 % (32.0-36.0); MCV 90 fL (80-95); MPV 10.7 fL (8.0-11.0); Monocytes % 4.4; Neutrophils % 86.9; RBC 3.69 10^6/uL (4.36-5.78); RDW 12.6 % (11.8-14.1); RDW-SD 42.2 fL; WBC 7.45 10^3/uL (4.4-10.8)
[2022-09-19 06:52] LABS: Anion Gap 7.1 mmol/L (3-11); BUN 17 mg/dL (7-18); CO2 23.9 mmol/L (21.0-32.0); CREATININE 0.8 mg/dL (0.70-1.30); Calcium 8.3 mg/dL (8.5-10.1); Chloride 110 mmol/L (98-107); Estimated GFR 100.69 (mL/min/1.73m2); Glucose 87 mg/dL (74-106); Potassium 4.1 mmol/L (3.5-5.1); Sodium 141 mmol/L (136-145)
[2022-09-19 06:53] LABS: Magnesium 2.1 mg/dL (1.8-2.4)
[2022-09-19 07:24] LABS: Platelet Count 73 10^3/uL (130-400)
[2022-09-19] MEDS: Aspirin E.C. 325 MG TABEC PO (07:51)
[2022-09-19] MEDS: Acyclovir 400 MG TAB 800 MG PO (07:51)
[2022-09-19] MEDS: Sulfameth/Trimeth DS TAB 0.5 TAB PO (08:30)
--- NOTE | 2022-09-19 09:43 | PDOC.CMPRO ---
Date of service: 09/19/22 Time of Service: 09:43 Care Management Progress Note Progress Note Text Progress Note Text: S/O: A: Dwain is a 62 year old man admitted on 09/18/22 with hypotension P:Anticipate Harvinder will be discharged home when medically cleared. His hypotension is responding to treatment and he is no longer tachycardic. CM will follow and continue to assess for dischaarge concerns.
[2022-09-19 11:34] LABS: Lyme Ab w Rflx to Lyme Confirm Negative (Negative)
--- NOTE | 2022-09-19 12:34 | W.PM.DS.N ---
Date of service: 09/19/22 Time of Service: 12:34 DS: Diagnosis Discharge Diagnosis (1) Sepsis: Status: Acute Asessment and Plan: Hypotensive. No fever at the time he arrived in the ED and no fever during course of hospitalization. WBC count elevated. CXR and UA were normal w/o indication of any infectious process. He was started on broad spectrum antibiotic coverage with ceftriaxone and vancomycin. Blood cultures obtained and are preliminarily negative at time of discharge. Tick borne panel pending. RSV, Influenza and Covid were negative. His WBC count normalized. and blood pressures normalized Discharged on Levofloxacin 750mg nightly for 5 doses (2) MAY (acute kidney injury): Status: Acute Asessment and Plan: Initial creatinine of 1.4. With IV hydration it normalized to 0.8. (3) Hypomagnesemia: Status: Acute Asessment and Plan: Repleted. (4) Normocytic anemia: Status: Acute Asessment and Plan: Stable. (5) Hypocalcemia: Status: Acute Asessment and Plan: Mild. (6) Multiple myeloma: Status: Acute Asessment and Plan: He will continue to follow up with oncology for treatment / ongoing care. Discharge Plan Disposition Patient Disposition: Home Condition: Good Discharge Details Reason For Visit: Hypotension, Leukocytosis, Multiple Myeloma Admit Date/Time: 09/18/22 03:55 Admit Provider: Imtiaz Dhillon Attending Provider: Imtiaz Dhillon Primary Care Provider: Ana M Mtoa Hospital Course Hospital Course: 62 yo M with multiple myeloma s/p autologous stem cell transplant, recently starting maintenance therapy with pamolidamide and carfilzomib who presented with a fever and chills the evening prior to admission.? He had received an infusion the morning his symptoms started.? He felt well until about 5pm, when he felt a cold chill like he couldn't warm up after being outside.? Shortly after he got nauseous and vomited twice.? He called his oncologist team who recommend he rest and monitor for fever.? At about 10pm he got up to drink some water and checked his tempurature and it was 101 degrees F.? He felt a little chilled, slight diffuse headache, and mildly lightheaded, but otherwise well.? He was instructed to come to the emergency room. He has no known sick contacts at home.? He ate a normal breakfast and lunch the day prior to admission.? Normal stools for the past 2 days, even though he often has loose stools.? 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 He has been around deer ticks but hasn't noted a bite or recent rash. ? See Diagnosis ? Follow up with oncology as previously scheduled. Follow up with PCP in 1 week. Home Meds and New Rx's Prescriptions: New loperamide 2 mg Capsule 2 mg PO Q6H PRN PRNQty: 0 0RF levofloxacin 750 mg tablet 750 mg PO HS Qty: 5 0RF Rx Instructions: First dose night of 09/19/22. Continued acyclovir 400 mg tablet 800 mg PO BID Patient Comments: TAKE ONE TABLET BY MOUTH TWICE A DAY sulfamethoxazole-trimethoprim [Bactrim] 400 mg PO MOWEFR Rx Instructions: 3 times a week amoxicillin 500 mg capsule 2,000 mg PO DIRECTED Rx Instructions: TAKE ALL 4 CAPS ONE HOUR PRIOR TO DENTIST levothyroxine [Synthroid] 88 mcg tablet 88 mcg PO DAILY Qty: 90 3RF pomalidomide 4 mg capsule See Rx Instructions .ROUTE .COMPLEX Rx Instructions: Take 1 capsule (4 mg) by mouth daily. Take for 21 days followed by 7 days off. Call clinic before starting medication. Indications: multiple myeloma aspirin 325 mg tablet,delayed release (DR/EC) See Rx Instructions .ROUTE .COMPLEX Rx Instructions: Take 1 tablet by mouth daily. Discharge Instructions Activity:: Activity as Tolerated Equipment/Supplies:: No Equipment Needed Diet:: Resume usual diet Discharge Orders Discharge Orders: Discharge Order (Routine); Ordered 09/19/22 Ordered By: Eligio Johnson DS: Summary Time Spent with Patient providing and/or coordinating discharge services: Greater than 30 minutes Status at Discharge Functional status at discharge: independent ambulation Overall status at discharge: patient is back to baseline Mental Status: mental status grossly normal Speech and Movement: speech and movement normal Mood: congruent mood Affect: normal affect Exam Narrative Exam Narrative: GEN: Pleasant and cooperative. NAD HEENT: Sclera clear. MMM LUNGS: CTAB with normal effort CV: RRR with some skipped beats, no murmurs ABD: +BS, soft, NT/ND EXT: no cyanosis, clubbing, or edema. No calf tenderness. MSK: No joint redness or swelling. SKIN: No rashes or open wounds. PSYCH: normal mood and affect Psych Mental Status: mental status grossly normal Speech and Movement: speech and movement normal Mood: congruent mood Affect: normal affect DS: Data Vitals/I&O Vitals and I&O: Vital Signs Temperature 36.8 C 09/19/22 11:44 Temperature Source Temporal Artery Scan 09/19/22 11:44 Pulse 71 09/19/22 11:30 Pulse Rhythm Regular 09/19/22 08:02 Pulse Strength Normal 09/18/22 04:14 Pulse 72 09/19/22 11:30 Respiratory Rate 17 09/19/22 11:30 Respiratory Effort Normal, Non-Labored 09/18/22 20:40 Respiratory Depth Normal 09/18/22 20:40 Respiratory Pattern Normal 09/18/22 04:14 Blood Pressure 128/97 H 09/19/22 11:30 Blood Pressure Mean 100 09/19/22 11:30 Blood Pressure Position Supine 09/18/22 20:40 Pulse Oximetry 96 09/19/22 11:30 Oxygen Delivery Method Room Air 09/18/22 20:40 Oxygen Flow Rate 0 09/18/22 20:40 Pain Level 0 09/18/22 20:40 Intake & Output 09/18/22 09/19/22 09/19/22 23:59 11:59 23:59 Intake Total 1320 / 7861.875 390 / 390 Output Total 855 / 1330 850 / 850 Balance 465 / 6531.875 -460 / -460 Weight 69.7 kg Intake: IV 200 / 3451.875 150 / 150 Oral 1120 / 1360 240 / 240 Output: Urine 855 / 1330 850 / 850 Other: Urine Color Straw Yellow Urine Appearance Clear Clear Urine Odor None Normal Stool Size Moderate Stool Characteristics Liquid Brown Voiding Methods Urinal Urinal Data Completed and Pending Labs on day of discharge: Labs from last 24 hours 09/19/22 09/19/22 09/19/22 11:00 05:45 05:45 WBC 7.45 RBC 3.69 L Hgb 11.2 L Hct 33.3 L MCV 90 MCH 30.4 MCHC 33.6 RDW 12.6 Plt Count 73 L MPV 10.7 Immature Gran % 0.3 Neutrophils % 86.9 Lymphocytes % 7.1 Monocytes % 4.4 Eosinophils % 1.2 Basophils % 0.1 Nucleated RBC % 0.0 Absolute Neutrophils 6.47 Absolute Lymphocytes 0.53 L Absolute Monocytes 0.33 Absolute Eosinophils 0.09 Absolute Basophils 0.01 Sodium 141 Potassium 4.1 Chloride 110 H Carbon Dioxide 23.9 Anion Gap 7.1 BUN 17 Creatinine 0.8 Est GFR (CKD-EPI 2020) 100.69 Glucose 87 Calcium 8.3 L Magnesium Vancomycin Trough Cancelled 09/19/22 05:45 WBC RBC Hgb Hct MCV MCH MCHC RDW Plt Count MPV Immature Gran % Neutrophils % Lymphocytes % Monocytes % Eosinophils % Basophils % Nucleated RBC % Absolute Neutrophils Absolute Lymphocytes Absolute Monocytes Absolute Eosinophils Absolute Basophils Sodium Potassium Chloride Carbon Dioxide Anion Gap BUN Creatinine Est GFR (CKD-EPI 2020) Glucose Calcium Magnesium 2.1 Vancomycin Trough Preliminary micro results at discharge 09/18/22 00:52 Blood Culture - Preliminary Blood NO GROWTH 24 HOURS 09/18/22 00:35 Blood Culture - Preliminary Blood NO GROWTH 24 HOURS PFSH All Active Problems Sepsis (Acute) Discharge planning issues (Acute) DVT prophylaxis (Acute) Hypomagnesemia (Acute) MAY (acute kidney injury) (Acute) Fever (Acute) Leukocytosis (Acute) Normocytic anemia (Acute) Hypocalcemia (Acute) Cataracts, bilateral (Acute) Hypothyroidism (Acute 04/25/16) Nevus, non-neoplastic (Acute) multiple nevi Rheumatoid arthritis with positive rheumatoid factor (Acute 01/14/17) Peripheral neuropathy (Acute) Anxiety (Chronic) Psoriasis (Chronic) Bone pain (Acute) Lytic bone lesions on xray (Acute) Multiple myeloma (Acute ~04/2021) Managed by Dr. Singleton at [facility]. Weight loss, non-intentional (Acute) Stem cells transplant status (Acute ~03/2022) Medical History Family history of malignant neoplasm of prostate father; grandfather Hyperthyroidism Iron deficiency anemia (11/03/12) extensive w/u. no cause found vegetarian. perhaps related to Fe def. Mitral valve regurgitation repaired Surgical History History of colonoscopy (~05/30/19) History of hernia repair inguinal bilat History of mitral valve repair S/P vasectomy Status post adenoidectomy Status post tonsillectomy Family History Mother Hyperlipidemia Father , AGE 83 Essential hypertension Hyperlipidemia Prostate cancer Sister No problems noted. Sister Depression Brother No problems noted. Maternal Grandfather , AGE 82 No problems noted. Paternal Grandfather , AGE 72 Prostate cancer Maternal Grandmother , AGE 78 No problems noted. Paternal Grandmother , AGE 88 Cancer Daughter Depression Daughter No problems noted. 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 [employer] Pets and animals: Yes Pets and animals: cat(s) Sexually active: No Do you think of yourself as: straight/heterosexual Current gender identity: male Other: currently going through a divorce What is your relationship status?: How often do you talk on the phone with friends or family?: twice per week How often do you get together with friends or relatives?: once per week How often do you attend sikhism or latter day services?: decline to answer Do you belong to any clubs or organized social groups?: no Panel score (0-1 are the most socially isolated patients): 1 What type of physical activity do you participate in: walking Duration: 15-30 minutes/day Frequency: daily Charito/Zoroastrianism: No preference Special charito needs: No Seatbelt use: always Helmet use: Yes Helmet use: always Drive intox or ride w/intox meals on wheels driver: No Do you feel safe at home: Yes Do you feel safe in your relationship?: Yes Time Spent with Patient Time Spent with Patient: 45-69 minutes Time was spent: preparing to see the patient(eg.review tests), ordering medications,tests, procedures, referring, communicating with other health career development specialist, indepentently interpreting results, counseling the patient and care coordination
--- NOTE | 2022-09-19 12:38 | PDOC.CMDIS ---
Date of service: 09/19/22 Time of Service: 12:39 LACE Index Scoring Tool Questions: Length of Stay (in days): 1 Was the patient admitted via the E.D.?: Yes Comorbidities: Any Tumor E.D. Visits: 1 Answers: Total Score: 7 Risk of Readmission: Low Risk Care Management Discharge Plan Reason for Hospitalization: Hypotension Discharge Plan: Harvnider will be discharged home with no new services. He will follow up with his PCP and Oncology team and transport via [facility] coordinated by CM. Patient/Family Education Needs: Review of discharge instructions, activity, follow up plan, discuss Ask Me Three
[2022-09-20 18:23] LABS: Anaplasma phagocytophilum Negative (Negative); B. miyamotoi PCR Negative (Negative); Babesia divergens/MO-1 Negative (Negative); Babesia duncani Negative (Negative); Babesia microti Negative (Negative); Ehrlichia chaffeensis Negative (Negative); Ehrlichia ewingii/canis Negative (Negative); Ehrlichia muris eauclairensis Negative (Negative)
== END 2022-09-19 14:30 | disposition home or self-care (01) | DRG 872 ==
LOC: ER 04:21 → ICU 05:16
PROVIDERS: Family Medicine; Admitting Provider Family Medicine; Emergency Provider Emergency Medicine; PCP Family Medicine; Visit Provider Family Medicine
DX: A41.9 Sepsis, unspecified organism (principal); N17.9 Acute kidney failure, unspecified; C90.00 Multiple myeloma not having achieved remission; Z94.84 Stem cells transplant status; E83.42 Hypomagnesemia; D50.9 Iron deficiency anemia, unspecified; E83.51 Hypocalcemia; Z79.899 Other long term (current) drug therapy; Z95.4 Presence of other heart-valve replacement; D72.829 Elevated white blood cell count, unspecified; F41.9 Anxiety disorder, unspecified; L40.9 Psoriasis, unspecified; M06.9 Rheumatoid arthritis, unspecified; G62.9 Polyneuropathy, unspecified; E03.9 Hypothyroidism, unspecified; R63.4 Abnormal weight loss; Z68.20 Body mass index [BMI] 20.0-20.9, adult
CPT/HCPCS: 36415; 36591; 80048; 80053; 82805; 87040; 87637; 87798; 93005; 71045; 80202; 81003; 83605; 83735; 84484; 85025; 86618; 93010; 99239; J0131; J0612

== ENCOUNTER 2022-10-01 02:21 | Outpatient (RCR) | payer BC, SELFPAY ==
[2022-10-01] MEDS: Normal Saline Flush 10 ML SYR IVP (09:12)
[2022-10-01 09:25] LABS: Abs Immature Grans 0.01 10^3/uL (0.0-0.06); Absolute Basophil Count 0.04 10^3/uL (0.0-0.2); Absolute Eosinophil Count 0.03 10^3/uL (0.0-0.7); Absolute Lymphocyte Count 0.77 10^3/uL (1.2-3.4); Absolute Monocyte Count 0.59 10^3/uL (0.1-0.8); Absolute Neutrophil Count 1.89 10^3/uL (1.2-6.7); Basophils % 1.2; Eosinophils % 0.9; HCT 38.2 % (40.0-50.0); HGB 12.9 g/dL (13.5-17.5); Immature Grans % 0.3; Lymphocytes % 23.1; MCH 29.8 pg (27.0-33.0); MCHC 33.8 % (32.0-36.0); MCV 88 fL (80-95); MPV 10.2 fL (8.0-11.0); Monocytes % 17.7; Neutrophils % 56.8; Platelet Count 165 10^3/uL (130-400); RBC 4.33 10^6/uL (4.36-5.78); RDW 12.6 % (11.8-14.1); RDW-SD 41.1 fL; WBC 3.33 10^3/uL (4.4-10.8)
[2022-10-01 09:48] LABS: ALT 17 U/L (16-63); AST 12 U/L (15-37); Albumin 3.6 g/dL (3.4-5.0); Alkaline Phosphatase 111 U/L (46-116); Anion Gap 5.3 mmol/L (3-11); BUN 10 mg/dL (7-18); Bilirubin, Total 0.6 mg/dL (0.2-1.0); CO2 30.7 mmol/L (21.0-32.0); CREATININE 0.9 mg/dL (0.70-1.30); Calcium 9.3 mg/dL (8.5-10.1); Calculated LDL 97 mg/dL (<100); Chloride 106 mmol/L (98-107); Cholesterol 188 mg/dL (<200); Estimated GFR 97.17 (mL/min/1.73m2); Ferritin 67 ng/mL (26-388); Glucose 99 mg/dL (74-106); HDL Cholesterol 69 mg/dL (40-60); Potassium 4.3 mmol/L (3.5-5.1); Sodium 142 mmol/L (136-145); Total Protein 6.6 g/dL (6.4-8.2); Triglyceride 110 mg/dL (<150)
[2022-10-01 18:10] LABS: PSA, Screening 1.2 ng/mL (<=4.5)
[2022-10-02 09:43] LABS: IgA <13 mg/dL (85-499); IgG 235 mg/dL (610-1616); IgM 21 mg/dL (35-242); Kappa Free Light Chain 0.41 mg/dL (0.33-1.94); Lambda Free Light Chain <0.44 mg/dL (0.57-2.63)
[2022-10-02 12:54] LABS: Albumin 65.8 % (55.8-66.1); Albumin g/dL 3.9 g/dL (3.6-5.2)
== END 2022-10-10 23:59 | disposition home or self-care (01) ==
LOC: INF 02:21
PROVIDERS: PCP Family Medicine; Visit Provider Internal Medicine Hematology & Oncology
DX: Z45.2 Encounter for adjustment and management of vascular access device (principal); D64.9 Anemia, unspecified
CPT/HCPCS: 36591; 80053; 80061; 82784; 84153; 82728; 83883; 84165; 85025

== ENCOUNTER 2022-10-01 23:36 | Inpatient (IN) | payer BC, SELFPAY ==
[2022-10-01 23:39] VITALS: BP 123/80; PULSE 66; RESP 18; TEMP 36.7; O2SAT 97
--- NOTE | 2022-10-01 23:45 | DI.RAD_ITS ---
Exam(s) XR CHEST 2V PA LATERAL EXAM: XR CHEST 2V PA LATERAL CLINICAL HISTORY: fever, eval for pneumonia TECHNIQUE: 2D digital imaging was performed. COMPARISON: CR,XR XR PORTABLE CHEST AP from 09/18/2022 FINDINGS: There is a port over the right chest HEART: Normal size. Valve prosthesis. Aorta: Not dilated. PULMONARY VASCULATURE: Normal. LUNGS: Clear. PLEURAL SPACE: No pleural effusion or pneumothorax. BONE:Unremarkable for age. Sternal wires noted. IMPRESSION: No acute abnormality. DATA REPOSITORY: RADIATION DOSE DELIVERED:
--- NOTE | 2022-10-01 23:49 | ED.GENADUL_ITS ---
Discharge Plan Disposition Patient Disposition: Admit to [facility] Condition: Stable Discharge Details Clinical Impression: Fever of unknown origin, Immunosuppression Primary Care Provider: Ana M Mota ED Provider: Saw Hardy Home Meds and New Rx's Prescriptions: No Action Pomalyst 2 mg capsule 2 mg PO DAILY Rx Instructions: use for 3 weeks, then off for 1 week. acyclovir 400 mg tablet 800 mg PO BID Patient Comments: TAKE ONE TABLET BY MOUTH TWICE A DAY sulfamethoxazole-trimethoprim [Bactrim] 400 mg PO MOWEFR Rx Instructions: 3 times a week amoxicillin 500 mg capsule 2,000 mg PO DIRECTED Rx Instructions: TAKE ALL 4 CAPS ONE HOUR PRIOR TO DENTIST levothyroxine [Synthroid] 88 mcg tablet 88 mcg PO DAILY Qty: 90 3RF aspirin 325 mg tablet,delayed release (DR/EC) See Rx Instructions .ROUTE .COMPLEX Rx Instructions: Take 1 tablet by mouth daily. 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 Additionally past medical history is positive for mitral valve repair but not replacement, hypothyroidism, tonsillectomy, who presents today for evaluation of fever. Patient states that on his last chemotherapy treatment a few weeks ago he developed a fever that evening. He was worked up, admitted and started on antibiotics, work-up was benign, patient was discharged home with no clear definable source. Today he again had chemotherapy for carfilzomib, daratumumab, and Zometa, and then this evening he noted mild fever. He admits to some mild nausea but denies any vomiting. He denies any headache, chest pain, cough, shortness of breath, abdominal pain, dysuria or urinary frequency, or other complaints. No other modifying factors. No other complaints at this time. Patient is also on regular acyclovir as well as regular Bactrim 3 days/week Exam demonstrates well-appearing male, no acute distress, heart rate and blood pressure stable. No evidence of sepsis at this time. Patient is afebrile on temp oral temperature, however we will get an oral temperature. Tmax at home was 101. We will get blood cultures, start vancomycin and Zosyn out of concern for his immunocompromise state, recent chemotherapy, as well as due to his previous mitral valve disease. Will evaluate for both bacterial and viral etiologies, monitor closely and reassess. Symptoms at this time appear clinically inconsistent with meningitis, severe pneumonia, or an acute surgical abdomen. He has no chest pain or shortness of breath. Symptoms appear clinically inconsistent with PE. UTI or mild pneumonia atelectasis is on the differential. Transient bacteremia secondary to recent IV/port use is of concern. Also of note upon review of prior notes the patient's tick and Lyme panel that was performed on his last admission came back negative. 3:05 AM Laboratory work-up is returned, white count is around 9, minimal left shift, neutrophil predominance though. Lactate 1.6. Electrolytes normal. Procalcitonin mildly elevated at 0.3, urinalysis negative for infection. COVID flu and RSV negative. Chest x-ray negative for acute process per radiology. Patient states that he feels stable. No rigors at this time. Unfortunately the patient's temperature has transitioned towards a fever again, he is currently 100.1 ?F. Blood pressure remains in the high 90s to low 100s systolic. Heart rate is in the 90s. Patient has received 2 L of normal saline at this point. Broad-spectrum antibiotics of vancomycin and Zosyn have already been given. We will reach out to [facility] heme-onc for further discussion of admission. Concern remains for transient or potential more sustained bacteremia. 3:32 AM I have reached out to [facility] and spoke with Dr. Henao who actually was the oncology consult physician during the patient's last ED stay. He to agrees with the patient's risk factors of chemotherapy, and his stem cell transplant 5 months ago he is high risk and it would be ideal to admit him and continue him on broad-spectrum antibiotics until his cultures return. He also does have concerns that this may just be a chemo related fever from his carfilzomib. Regardless he agrees and does recommend admission. We will reach out to the hospitalist Dr. Lam for MedSurg admission. 3:46 AM Discussed the case with the hospitalist Dr. Lam, he agrees with the assessment and plans. I will place admission orders at his request on his behalf. I did reassess the patient again, he continues to be interactive, and shows no signs of altered mental status. Heart rate remains in the 90s. Systolic blood pressure remains in the high 90s to low 100s. We will continue fluids at 125 cc/h of normal saline, give another 500 cc bolus as a precaution. Patient stable at this point for admission to [facility]. No signs of septic shock. I have extensively reviewed the treatment plan with the patient. I have addressed all patient concerns at this time. I have also discussed the plan with the admitting physician and they agree with the current assessment and plan and have agreed to assume responsibility for the patient. All parties demonstrate v erbal understanding and agreement with our assessment and plan at this time. The documentation in this chart was dictated using [employer] dictation software. Please excuse any dictation errors. FINDINGS: A right-sided MediPort is again noted. Status post mitral valve replacement. No airspace consolidation, pleural effusion or pneumothorax. Unremarkable cardiomediastinal silhouette. IMPRESSION: No acute findings. Thank you for allowing us to participate in the care of your patient. Dictated and Authenticated by: Martin Downs MD 10/02/2022 2:11 AM Eastern Time ([place] & [place]) HPI General Date/Time Provider Initiated Documentation: 10/01/22 23:38 . 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 Additionally past medical history is positive for mitral valve repair but not replacement, hypothyroidism, tonsillectomy, who presents today for evaluation of fever. Patient states that on his last chemotherapy treatment a few weeks ago he developed a fever that evening. He was worked up, admitted and started on antibiotics, work-up was benign, patient was discharged home with no clear definable source. Today he again had chemotherapy, and then this evening he noted mild fever. He admits to some mild nausea but denies any vomiting. He denies any headache, chest pain, cough, shortness of breath, abdominal pain, dysuria or urinary frequency, or other complaints. No other modifying factors. No other complaints at this time. Related Data Home Medications Medication Instructions Recorded Confirmed levothyroxine 88 mcg tablet 88 mcg PO DAILY #90 tab-caps 04/16/22 09/26/22 (Synthroid) acyclovir 400 mg tablet 800 mg PO BID 06/26/22 09/26/22 amoxicillin 500 mg capsule 2,000 mg PO DIRECTED 07/31/22 09/26/22 sulfamethoxazole-trimethoprim 400 mg PO MOWEFR 07/31/22 09/26/22 [Bactrim] aspirin 325 mg tablet,delayed See Rx Instructions .Route .COMPLEX 09/18/22 09/26/22 release loperamide 2 mg capsule 2 mg PO Q6H PRN PRN #0 caps 09/19/22 09/26/22 pomalidomide 2 mg capsule 2 mg PO DAILY 09/26/22 09/26/22 (Pomalyst) Previous Rx's Medication Instructions Recorded levothyroxine 88 mcg tablet 88 mcg PO DAILY #90 tab-caps 04/16/22 (Synthroid) loperamide 2 mg capsule 2 mg PO Q6H PRN PRN #0 caps 09/19/22 Allergies Allergy/AdvReac Type Severity Reaction Status Date / Time methotrexate AdvReac Intermediate Flu like Verified 09/26/22 10:15 symptoms oxycodone AdvReac Intermediate HALLUCINATIONS Verified 09/26/22 10:15 & Nausea General Stated Complaint: Fever YANA: 3 Review of Systems All systems reviewed & are unremarkable except as noted in HPI and below PFSH All Active Problems (Updated 10/02/22 @ 03:35 by Saw Hardy DO) Hypothyroidism (Acute 04/25/16) Nevus, non-neoplastic (Acute) multiple nevi Rheumatoid arthritis with positive rheumatoid factor (Acute 01/14/17) Peripheral neuropathy (Acute) Anxiety (Chronic) Psoriasis (Chronic) Multiple myeloma (Acute ~04/2021) Managed by Dr. Singleton at [facility]. Weight loss, non-intentional (Acute) Stem cells transplant status (Acute ~03/2022) Cataracts, bilateral (Acute) Normocytic anemia (Acute) Fever of unknown origin (Acute) Immunosuppression (Acute) Medical History Family history of malignant neoplasm of prostate father; grandfather Hyperthyroidism Iron deficiency anemia (11/03/12) extensive w/u. no cause found vegetarian. perhaps related to Fe def. Mitral valve regurgitation repaired Surgical History History of colonoscopy (~05/30/19) History of hernia repair inguinal bilat History of mitral valve repair S/P vasectomy Status post adenoidectomy Status post tonsillectomy Family History Mother Hyperlipidemia Father , AGE 83 Essential hypertension Hyperlipidemia Prostate cancer Sister No problems noted. Sister Depression Brother No problems noted. Maternal Grandfather , AGE 82 No problems noted. Paternal Grandfather , AGE 72 Prostate cancer Maternal Grandmother , AGE 78 No problems noted. Paternal Grandmother , AGE 88 Cancer Daughter Depression Daughter No problems noted. 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 [employer] Pets and animals: Yes Pets and animals: cat(s) Sexually active: No Do you think of yourself as: straight/heterosexual Current gender identity: male Other: currently going through a divorce What is your relationship status?: How often do you talk on the phone with friends or family?: twice per week How often do you get together with friends or relatives?: once per week How often do you attend jehovah's witness or christian services?: decline to answer Do you belong to any clubs or organized social groups?: no Panel score (0-1 are the most socially isolated patients): 1 What type of physical activity do you participate in: walking Duration: 15-30 minutes/day Frequency: daily Charito/Yazidism: No preference Special charito needs: No Seatbelt use: always Helmet use: Yes Helmet use: always Drive intox or ride w/intox auto transport driver: No Do you feel safe at home: Yes Do you feel safe in your relationship?: Yes Exam Narrative Exam Narrative: 1.Const: Well-nourished, Well-developed, appearing stated age 2.Eyes: PERRL, no conjunctival injection, and symmetrical lids. 3.ENT: Atraumatic external nose and ears. Moist MM. Neck: Symmetric, trachea midline, No thyromegaly. 4.CVS: +S1/S2, No murmurs or gallops. Peripheral pulses 2+ and equal in all extremities. Brisk capillary refill in all extremities. 5.RESP: Unlabored respiratory effort. Clear to auscultation bilaterally. No wheezes rales or rhonchi 6.GI: Soft, Nontender/Nondistended, No hepatosplenomegaly. No guarding or rebound. 7.MSK: Normocephalic/Atraumatic, Extremities w/o deformity or ttp No cyanosis or clubbing, Normal movement of all extremities 8.Skin: Warm, Dry. No rashes or lesions. 9.Neuro: log sorter II-XII grossly intact. Sensation grossly intact, no focal neurologic deficits. 10.Psych: (AAO) x3. Appropriate mood and affect Course Vital Signs Vital signs: Vital Signs Temperature 36.7 C 10/01/22 23:39 Pulse 66 10/01/22 23:39 Respiratory Rate 18 10/01/22 23:39 Blood Pressure 123/80 10/01/22 23:39 Pulse Oximetry 97 10/01/22 23:39 Temperature 36.7 C 10/01/22 23:39 Temperature Source Temporal Artery Scan 10/01/22 23:39 Pulse 66 10/01/22 23:39 Respiratory Rate 18 10/01/22 23:39 Blood Pressure 123/80 10/01/22 23:39 Blood Pressure Position Sitting 10/01/22 23:39 Pulse Oximetry 97 10/01/22 23:39 Oxygen Delivery Method Room Air 10/01/22 23:39 Oxygen Flow Rate 0 10/01/22 23:39 Critical Care Time Critical Care Time Critical Care Time: Yes Total Critical Care Time: 30 Attestation: Upon my evaluation, this patient had a high probability of imminent or life- threatening deterioration, which required my direct attention, intervention, and personal management. I have personally provided 45 minutes of critical care time exclusive of time spent on separately billable procedures. Time includes review of laboratory data, radiology results, discussion with consultants, and monitoring for potential decompensation. Interventions were performed as documented.
[2022-10-02] VITALS (10 sets, daily range): BP systolic 92–120; BP diastolic 56–76; PULSE 67–103; RESP 16–20; TEMP 36.2–37.8; O2SAT 92–98
[2022-10-02 00:47] LABS: Abs Immature Grans 0.11 10^3/uL (0.0-0.06); Absolute Basophil Count 0.05 10^3/uL (0.0-0.2); Absolute Eosinophil Count 0.02 10^3/uL (0.0-0.7); Absolute Lymphocyte Count 0.29 10^3/uL (1.2-3.4); Absolute Neutrophil Count 7.39 10^3/uL (1.2-6.7); Basophils % 0.6; Eosinophils % 0.2; HCT 35.3 % (40.0-50.0); HGB 12.1 g/dL (13.5-17.5); Immature Grans % 1.2; Lactate 1.6 mmol/L (0.6-1.4); Lymphocytes % 3.2; MCH 30.4 pg (27.0-33.0); MCHC 34.3 % (32.0-36.0); MCV 89 fL (80-95); MPV 9.7 fL (8.0-11.0); Monocytes % 12.3; Neutrophils % 82.5; Platelet Count 147 10^3/uL (130-400); RBC 3.98 10^6/uL (4.36-5.78); RDW 12.7 % (11.8-14.1); RDW-SD 41.3 fL; WBC 8.96 10^3/uL (4.4-10.8)
[2022-10-02] MEDS: Normal Saline 1,000 ML 1000 ML IV (00:56)
[2022-10-02] MEDS: PIPERACILLIN/TAZO 3.375 GM in Normal Saline 100 ML IVPB (00:57)
[2022-10-02] MEDS: VANCOMYCIN 1,500 MG in Normal Saline 500 ML 333.3333 MG IVPB (00:58)
[2022-10-02 01:01] LABS: Lipase 27 U/L (16-77)
[2022-10-02 01:06] LABS: ALT 13 U/L (16-63); AST 13 U/L (15-37); Albumin 3.5 g/dL (3.4-5.0); Alkaline Phosphatase 91 U/L (46-116); Anion Gap 9.5 mmol/L (3-11); BUN 15 mg/dL (7-18); Bilirubin, Total 0.7 mg/dL (0.2-1.0); CO2 26.5 mmol/L (21.0-32.0); CREATININE 1.2 mg/dL (0.70-1.30); Chloride 102 mmol/L (98-107); Glucose 97 mg/dL (74-106); Potassium 3.9 mmol/L (3.5-5.1); Sodium 138 mmol/L (136-145); Total Protein 5.6 g/dL (6.4-8.2)
--- NOTE | 2022-10-02 01:15 | RT.EKG_ITS ---
APPROVED REPORT Exam: Resting ECG Reason for Exam: pvc's Patient Location: E HR:98 bpm ECG Measurements Heart Rate 98 AXIS VA 166 P 47 QRSd 103 QRS 44 QT 357 T 73 QTc 449 Conclusion Sinus rhythm...normal P axis, V-rate 60- 99 Ventricular tachycardia, unsustained...sequence of 3 or more V complexes Physician: multiple pvc's, no stemi
[2022-10-02] MEDS: Normal Saline 500 ML IV ×3 (01:25→04:03)
[2022-10-02 01:29] LABS: COVID-19 PCR Negative (Negative); Influenza A PCR Negative (Negative); Influenza B PCR Negative (Negative); RSV PCR Negative (Negative)
[2022-10-02 01:30] LABS: Source Nasopharynx
[2022-10-02 01:31] LABS: Procalcitonin 0.3 ng/mL
--- NOTE | 2022-10-02 02:12 | DI.VRAD_ITS ---
PROCEDURE INFORMATION: Exam: XR Chest Exam date and time: 10/02/2022 12:46 AM Age: 62 years old Clinical indication: Fever; Prior surgery; Surgery date: 6+ months; Surgery type: Open heart surgery and port-a-cath; Additional info: Fever, eval for pneumonia TECHNIQUE: Imaging protocol: Radiologic exam of the chest. Views: 2 views. COMPARISON: CR XR PORTABLE CHEST AP 09/18/2022 1:22 AM FINDINGS: A right-sided MediPort is again noted. Status post mitral valve replacement. No airspace consolidation, pleural effusion or pneumothorax. Unremarkable cardiomediastinal silhouette. IMPRESSION: No acute findings. Dictated and Authenticated by: Martin Downs MD. Ordering:EMY Spring MD
[2022-10-02 02:54] LABS: Bilirubin Negative (Negative); Blood Negative (Negative); Clarity Clear (Clear); Glucose Negative (Negative); Ketones Trace mg/dL (Negative); Leukocyte Esterase Negative (Negative); Nitrite Negative (Negative); Urobilinogen 0.2 mg/dL (Up to 0.2)
[2022-10-02] MEDS: Acetaminophen 500 MG TAB 1000 MG PO (03:10)
[2022-10-02] MEDS: Normal Saline 1,000 ML 150 ML IV (04:03)
--- NOTE | 2022-10-02 04:38 | NUR.NOTE ---
@0025-R port accessed after 1 attempt. Smooth insertion, sterile technique maintained per protocol, pt tolerated well. Per Antony, DO draw x1 set of blood cultures off of port.
--- NOTE | 2022-10-02 04:45 | NUR.NOTE ---
@0110- Pt on tele and having multiple PVCs. [place], DO made aware and asked if he would like EKG. New ords received.
--- NOTE | 2022-10-02 06:32 | HPE_ITS ---
Date of service: 10/02/22 Time of Service: 06:32 Assessment and Plan Assessment and plan (1) Fever: Start date: 10/02/22 Status: Acute Assessment and plan: Patient has multiple myeloma on chemotherapy and is compromised with broad- spectrum IV antibiotic therapy to be maintained pending culture reports. Trend fever and treat symptomatically. His procalcitonin and lactate are slightly elevated IV hydration will be maintained with normal saline. Trend labs. No need for reverse isolation but caution will be taken with patient wearing mask with visitors. 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 Because he had problems with hypotension and sepsis type syndrome with his last fever post chemotherapy, he will be admitted with IV hydration with normal saline and broad-spectrum h IV antibiotic coverage with vancomycin and Zosyn. He chronically is on Bactrim 3 times a week which is going to be held and acyclovir daily which will be continued. He is a full code. (3) Stem cells transplant status: Status: Resolved Assessment and plan: Patient is compromised and on daily treatment with pomalidomide and receiving chemotherapy. Status post bone marrow transplant. With fever will have broad- spectrum IV antibiotic therapy and acyclovir daily. His WBC is normal and sligh tly reactive with his fever. He is only mildly anemic and his platelet count is normal. (4) Immunosuppression: Status: Chronic Assessment and plan: No need for reverse isolation with patient on broad-spectrum IV antibiotic therapy because of fever associated with chemotherapy. History of Present Illness History of Present Illness Chief Complaint: Fever Narrative: This is a 62-year-old male patient with a history of multiple myeloma diagnosed in April 2021 status post bone marrow transplant in March 2022 now receiving chemotherapy with recent dosing of chemotherapy the day of presentation to the ED. He has had a history of mitral valve repair on aspirin daily and hypothyroidism on supplement. 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 He has been active. He presents with fever after receiving his chemotherapy with no focalizing symptoms. His appetite is fair with slight nausea and he has had no diaphoresis or rigors. He chronically is on suppression with Bactrim 3 times a week and acyclovir daily. He is on oral treatment as well after his transplant and is immunosuppressed. He is a full code. He was admitted for broad-spectrum IV antibiotic therapy pending cultures as per recommendations of [facility] oncology. He is cared for by Dr. Singleton at [facility] [place]. Review of Systems Narrative: 13 point review of systems otherwise unrevealing or stable. PFSH All Active Problems (Updated 10/02/22 @ 07:20 by Alex Braun) Fever (Acute) Hypothyroidism (Acute 04/25/16) Nevus, non-neoplastic (Acute) multiple nevi Rheumatoid arthritis with positive rheumatoid factor (Acute 01/14/17) Peripheral neuropathy (Acute) Anxiety (Chronic) Psoriasis (Chronic) Multiple myeloma (Chronic ~04/2021) Managed by Dr. Singleton at [facility] [place]. Weight loss, non-intentional (Acute) Cataracts, bilateral (Acute) Normocytic anemia (Acute) Fever of unknown origin (Acute) Immunosuppression (Chronic) Medical History Family history of malignant neoplasm of prostate father; grandfather Hyperthyroidism Iron deficiency anemia (11/03/12) extensive w/u. no cause found vegetarian. perhaps related to Fe def. Mitral valve regurgitation repaired Surgical History History of colonoscopy (~05/30/19) History of hernia repair inguinal bilat History of mitral valve repair S/P vasectomy Status post adenoidectomy Status post tonsillectomy Family History Mother Hyperlipidemia Father , AGE 83 Essential hypertension Hyperlipidemia Prostate cancer Sister No problems noted. Sister Depression Brother No problems noted. Maternal Grandfather , AGE 82 No problems noted. Paternal Grandfather , AGE 72 Prostate cancer Maternal Grandmother , AGE 78 No problems noted. Paternal Grandmother , AGE 88 Cancer Daughter Depression Daughter No problems noted. 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 [employer] Pets and animals: Yes Pets and animals: cat(s) Sexually active: No Do you think of yourself as: straight/heterosexual Current gender identity: male Other: currently going through a divorce What is your relationship status?: How often do you talk on the phone with friends or family?: twice per week How often do you get together with friends or relatives?: once per week How often do you attend restorationist or yarsanism services?: decline to answer Do you belong to any clubs or organized social groups?: no Panel score (0-1 are the most socially isolated patients): 1 What type of physical activity do you participate in: walking Duration: 15-30 minutes/day Frequency: daily Charito/Rastafarian: No preference Special charito needs: No Seatbelt use: always Helmet use: Yes Helmet use: always Drive intox or ride w/intox wood pile driver operator: No Do you feel safe at home: Yes Do you feel safe in your relationship?: Yes Meds Allergies and Home Medications Allergies Allergy/AdvReac Type Severity Reaction Status Date / Time methotrexate AdvReac Intermediate Flu like Verified 09/26/22 10:15 symptoms oxycodone AdvReac Intermediate HALLUCINATIONS Verified 09/26/22 10:15 & Nausea Home Medications Medication Instructions Recorded Confirmed Type levothyroxine 88 mcg tablet 88 mcg PO DAILY #90 tab-caps 04/16/22 10/02/22 Rx (Synthroid) acyclovir 400 mg tablet 800 mg PO BID 06/26/22 10/02/22 History amoxicillin 500 mg capsule 2,000 mg PO DIRECTED 07/31/22 10/02/22 History sulfamethoxazole-trimethoprim 400 mg PO MOWEFR 07/31/22 10/02/22 History [Bactrim] aspirin 325 mg tablet,delayed See Rx Instructions .Route .COMPLEX 09/18/22 10/02/22 History release loperamide 2 mg capsule 2 mg PO Q6H PRN PRN #0 caps 09/19/22 10/02/22 Rx pomalidomide 2 mg capsule 2 mg PO DAILY 09/26/22 10/02/22 History (Pomalyst) Exam Narrative Exam Narrative: General: Patient appears appropriate for age, alert and oriented x3 and in no acute distress. He is mesomorphic, thin and tall. HEENT: Normocephalic with patient wearing ski And unshaven chapman. Eyes with pupils equal and react to light symmetrically, extraocular movement intact and sclera anicteric. Oropharynx with moist mucosa and fair dentition. Neck: Supple without JVD. Back: Normal posture without CVA tenderness. Lungs: Clear to auscultation percussion with no focalizing rales or rhonchi. No expiratory wheeze. Normal aeration throughout. Heart: Regular rate and rhythm with no murmurs or gallop appreciated. Abdomen: Scaphoid contour, soft and nontender to palpation with no palpable hepatosplenomegaly. Genitalia/rectal: Exam deferred. Skin: Hot, normal color, dry. Slight actinic changes over sun exposed areas otherwise normal skin without suspicious lesions with history of multiple nevi. Extremities: Without clubbing, cyanosis or pitting edema. Peripheral pulses normal throughout. Neuro: Cranial nerves II through XII gross intact, no focalizing motor deficits. No tremor. Psych: Normal affect and mood. Remote and recent memory intact. No abnormal thought processes. Results Imaging Imaging Studies: Exam: XR Chest Exam date and time: 10/02/2022 12:46 AM Age: 62 years old Clinical indication: Fever; Prior surgery; Surgery date: 6+ months; Surgery type: Open heart surgery and port-a-cath; Additional info: Fever, eval for pneumonia TECHNIQUE: Imaging protocol: Radiologic exam of the chest. Views: 2 views. COMPARISON: CR XR PORTABLE CHEST AP 09/18/2022 1:22 AM FINDINGS: ?A right-sided MediPort is again noted. Status post mitral valve replacement. No airspace consolidation, pleural effusion or pneumothorax. Unremarkable cardiomediastinal silhouette. IMPRESSION: No acute findings. Labs 10/02/22 00:25 10/02/22 00:25 Labs: Laboratory Results - last 24 hr 10/02/22 10/02/22 10/02/22 00:25 00:25 00:25 WBC 8.96 RBC 3.98 L Hgb 12.1 L Hct 35.3 L MCV 89 MCH 30.4 MCHC 34.3 RDW 12.7 Plt Count 147 MPV 9.7 Immature Gran % 1.2 Neutrophils % 82.5 Lymphocytes % 3.2 Monocytes % 12.3 Eosinophils % 0.2 Basophils % 0.6 Nucleated RBC % 0.0 Absolute Neutrophils 7.39 H Absolute Lymphocytes 0.29 L Absolute Monocytes 1.10 H Absolute Eosinophils 0.02 Absolute Basophils 0.05 VBG Lactate 1.6 H Sodium 138 Potassium 3.9 Chloride 102 Carbon Dioxide 26.5 Anion Gap 9.5 BUN 15 Creatinine 1.2 Est GFR (CKD-EPI 2020) 68.80 Glucose 97 Calcium 9.0 Total Bilirubin 0.7 AST 13 L ALT 13 L Alkaline Phosphatase 91 Total Protein 5.6 L Albumin 3.5 Lipase Procalcitonin 0.3 Urine Color Urine Clarity Urine pH Ur Specific Lindsay Urine Protein Urine Ketones Urine Blood Urine Nitrite Urine Bilirubin Urine Urobilinogen Ur Leukocyte Esterase Urine Glucose COVID-19 Source SARS-CoV-2 (PCR) Influenza Type A (PCR) Influenza Type B (PCR) RSV (PCR) 10/02/22 10/02/22 10/02/22 00:25 00:30 02:45 WBC RBC Hgb Hct MCV MCH MCHC RDW Plt Count MPV Immature Gran % Neutrophils % Lymphocytes % Monocytes % Eosinophils % Basophils % Nucleated RBC % Absolute Neutrophils Absolute Lymphocytes Absolute Monocytes Absolute Eosinophils Absolute Basophils VBG Lactate Sodium Potassium Chloride Carbon Dioxide Anion Gap BUN Creatinine Est GFR (CKD-EPI 2020) Glucose Calcium Total Bilirubin AST ALT Alkaline Phosphatase Total Protein Albumin Lipase 27 Procalcitonin Urine Color Yellow Urine Clarity Clear Urine pH 5.0 Ur Specific Lindsay 1.010 Urine Protein Negative Urine Ketones Trace H Urine Blood Negative Urine Nitrite Negative Urine Bilirubin Negative Urine Urobilinogen 0.2 Ur Leukocyte Esterase Negative Urine Glucose Negative COVID-19 Source Nasopharynx SARS-CoV-2 (PCR) Negative Influenza Type A (PCR) Negative Influenza Type B (PCR) Negative RSV (PCR) Negative Last Vital Signs Temp 37.8 C H 10/02/22 04:57 Pulse 100 H 10/02/22 04:57 Resp 18 10/02/22 04:57 BP 100/57 L 10/02/22 04:57 Pulse Ox 97 10/02/22 04:57 Time Spent Time spent with Patient: 55-74 minutes Time was spent: preparing to see the patient(eg.review tests), obtaining and/or reviewing separately otained hiistory, ordering medications,tests, procedures, indepentently interpreting results and care coordination
[2022-10-02] MEDS: Enoxaparin 40 MG/0.4 ML SYR SC (08:27)
[2022-10-02] MEDS: Aspirin E.C. 325 MG TABEC PO (08:27)
[2022-10-02] MEDS: Acyclovir 400 MG TAB 800 MG PO ×2 (08:27→20:34)
[2022-10-02] MEDS: PIPERACILLIN/TAZO 3.375 GM in Normal Saline 50 ML IVPB ×3 (08:27→20:30)
[2022-10-02 08:42] LABS: Lactate 0.8 mmol/L (0.6-1.4)
[2022-10-02] MEDS: Levothyroxine 88 MCG TAB PO (09:07)
--- NOTE | 2022-10-02 09:41 | INITIAL_ITS ---
Date of service: 10/02/22 Time of Service: 09:41 Care Management Initial Assmt Initial Assessment REASON FOR HOSPITALIZATION:: fever PREVIOUS FUNCTIONAL STATUS/SOCIAL/FAMILY SUPPORTS:: Harvinder lives alone in a single family home in [place]. He is from his but they remain on good terms and share custody of their 2 children. 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 He is independent with ADLs and does not receive any services at this time. CURRENT FUNCTIONAL STATUS:: Harvinder was sitting up in bed when CM met with him. He engaged readily with CM, known to him from a previous hospitalization. Harvinder was admitted with a fever. No obvious infectious cause has been identified and it is felt that the fever may be due to his chemotherapy. The last time he had the same chemo he also had a febrile reaction. The plan is to observe him one more day then possibly discharge home tomorrow. Harvinder has been ambulating in the halls (with a mask) and has been pleasant and friendly with staff. ADVANCE DIRECTIVES:: On file. Louise bailey agent Has patient been provided with info about the portal/API?: Yes Did the patient sign up for the portal?: Yes CODE STATUS:: Full Code INSURANCE COVERAGE / FINANCIAL ISSUES:: [employer] [place] PRIMARY CARE PHYSICIAN:: Ana M Mota POTENTIAL DISCHARGE NEEDS:: follow up with Oncology, PCP and behavioral health therapist at PCP office PATIENT/FAMILY EDUCATION NEEDS:: Review of discharge instructions, activity, follow up plan, discuss Ask Me Three TRANSPORTATION:: via private vehicle with family vs RCT PLAN:: Anticipate Harvinder will be discharged home with no new services. He will follow up with his PCP and Oncology team and transport via RCT coordinated by CM vs with family. CM will follow and assess for discharge planning concerns. PFSH All Active Problems (Updated 10/02/22 @ 07:20 by Alex Braun) Fever (Acute) Hypothyroidism (Acute 04/25/16) Nevus, non-neoplastic (Acute) multiple nevi Rheumatoid arthritis with positive rheumatoid factor (Acute 01/14/17) Peripheral neuropathy (Acute) Anxiety (Chronic) Psoriasis (Chronic) Multiple myeloma (Chronic ~04/2021) [place] [facility] [place] Weight loss, non-intentional (Acute) Cataracts, bilateral (Acute) Normocytic anemia (Acute) Fever of unknown origin (Acute) Immunosuppression (Chronic) Medical History Family history of malignant neoplasm of prostate father; grandfather Hyperthyroidism Iron deficiency anemia (11/03/12) extensive w/u. no cause found vegetarian. perhaps related to Fe def. Mitral valve regurgitation repaired Surgical History History of colonoscopy (~05/30/19) History of hernia repair inguinal bilat History of mitral valve repair S/P vasectomy Status post adenoidectomy Status post tonsillectomy Family History Mother Hyperlipidemia Father , AGE 83 Essential hypertension Hyperlipidemia Prostate cancer Sister No problems noted. Sister Depression Brother No problems noted. Maternal Grandfather , AGE 82 No problems noted. Paternal Grandfather , AGE 72 Prostate cancer Maternal Grandmother , AGE 78 No problems noted. Paternal Grandmother , AGE 88 Cancer Daughter Depression Daughter No problems noted. 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 Pets and animals: Yes Pets and animals: cat(s) Sexually active: No Do you think of yourself as: straight/heterosexual Current gender identity: male Other: currently going through a divorce What is your relationship status?: How often do you talk on the phone with friends or family?: twice per week How often do you get together with friends or relatives?: once per week How often do you attend lutheran or episcopal services?: decline to answer Do you belong to any clubs or organized social groups?: no Panel score (0-1 are the most socially isolated patients): 1 What type of physical activity do you participate in: walking Duration: 15-30 minutes/day Frequency: daily Charito/Cheondoism: No preference Special charito needs: No Seatbelt use: always Helmet use: Yes Helmet use: always Drive intox or ride w/intox driver utility worker: No Do you feel safe at home: Yes Do you feel safe in your relationship?: Yes
[2022-10-02] MEDS: VANCOMYCIN/WATER (PEG) 750 MG/150 ML BAG 150 MG IV (13:35)
[2022-10-03] MEDS: PIPERACILLIN/TAZO 3.375 GM in Normal Saline 50 ML IVPB ×4 (01:25→19:40)
[2022-10-03] MEDS: VANCOMYCIN/WATER (PEG) 750 MG/150 ML BAG 150 MG IV (02:08)
[2022-10-03 03:40] VITALS: BP 123/72; PULSE 91; RESP 18; TEMP 36.6; O2SAT 94
[2022-10-03] MEDS: Levothyroxine 88 MCG TAB PO (06:30)
[2022-10-03 06:51] LABS: HCT 32.7 % (40.0-50.0); HGB 11.1 g/dL (13.5-17.5); MCH 30.1 pg (27.0-33.0); MCHC 33.9 % (32.0-36.0); MCV 89 fL (80-95); MPV 10.4 fL (8.0-11.0); RBC 3.69 10^6/uL (4.36-5.78); RDW 13.4 % (11.8-14.1); RDW-SD 43.8 fL
[2022-10-03 07:19] LABS: ALT 11 U/L (16-63); AST 12 U/L (15-37); Albumin 2.6 g/dL (3.4-5.0); Alkaline Phosphatase 62 U/L (46-116); Anion Gap 6.2 mmol/L (3-11); BUN 14 mg/dL (7-18); Bilirubin, Total 0.5 mg/dL (0.2-1.0); CO2 24.8 mmol/L (21.0-32.0); CREATININE 0.9 mg/dL (0.70-1.30); Calcium 8.3 mg/dL (8.5-10.1); Chloride 112 mmol/L (98-107); Estimated GFR 97.17 (mL/min/1.73m2); Glucose 83 mg/dL (74-106); Potassium 3.9 mmol/L (3.5-5.1); Sodium 143 mmol/L (136-145)
[2022-10-03 07:22] LABS: Platelet Count 86 10^3/uL (130-400)
[2022-10-03 08:00] VITALS: BP 126/81; PULSE 80; O2SAT 100
[2022-10-03 08:05] VITALS: BP 126/81; PULSE 80; TEMP 36.7; O2SAT 100
[2022-10-03] MEDS: Aspirin E.C. 325 MG TABEC PO (08:08)
[2022-10-03] MEDS: Acyclovir 400 MG TAB 800 MG PO ×2 (08:08→19:39)
--- NOTE | 2022-10-03 09:32 | PDOC.CMPRO ---
Date of service: 10/03/22 Time of Service: 09:33 Care Management Progress Note Progress Note Text Progress Note Text: S/O:Harvinder continues to feel well and has been walking in the halls again today. He was hoping to be discharged today but it appears that he will remain at [facility] until tomorrow. The provider is waiting to speak to Harvinder's Oncologist for recommendations prior to discharge. A: Harvinder is a 62 year old man admitted on with fever P:Anticipate Harvinder will be discharged home with no new services. He will follow up with his PCP and Oncology team and transport via RCT coordinated by CM vs with family. CM will follow and assess for discharge planning concerns.
[2022-10-03] MEDS: VANCOMYCIN/WATER (PEG) 1 GM/200 ML BAG IV (14:05)
[2022-10-03 15:36] VITALS: BP 132/78; PULSE 60; TEMP 36.3; O2SAT 95
--- NOTE | 2022-10-03 16:10 | W.PM.PROGNOT ---
Date of Service Date of service: 10/03/22 Time of Service: 16:10 Assessment and Plan Assessment and plan (1) Fever: Start date: 10/02/22 Status: Acute Assessment and plan: Fever; related to chemotx for MM vs infectious. Previous admission for same. UA and CXR w/o evidence of any infectious process. Spoke with his oncologist, Dr Singleton. She recommended waiting for 48hour read of cultures and if negative, d/c on levaquin. She also recommended drawing a set of cultures from his port; this found to have occurred in the ED so no repeats ordered. Has been afebrile since admission. 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 WBC count normal on admission, now mildly leukpenic with count of 3.9. No neutropenia. Because he had problems with hypotension and sepsis type syndrome with his last fever post chemotherapy, he will be admitted with IV hydration with normal saline and broad-spectrum h IV antibiotic coverage with vancomycin and Zosyn. acyclovir daily which will be continued. He is a full code. (3) Stem cells transplant status: Status: Resolved Assessment and plan: Patient is compromised and on daily treatment with pomalidomide and receiving chemotherapy. Status post bone marrow transplant. With fever will have broad-spectrum IV antibiotic therapy and acyclovir daily. His WBC was normal on admission and slightly reactive with his fever. He is only mildly anemic. Platelet count was initially normal and now low at 86. (4) Immunosuppression: Status: Chronic Assessment and plan: No need for reverse isolation with patient on broad-spectrum IV antibiotic therapy because of fever most likely associated with chemotherapy. Subjective Subjective Patient reports: no new complaints and afebrile; denies diarrhea, nausea, vomiting or shortness of breath Exam Narrative Exam Narrative: General: Walking in hallway. NAD. Pleasant and cooprative. Lungs: Clear to auscultation. Nonlabored breathing. Heart: Regular rate and rhythm with no murmurs Abdomen: Scaphoid contour, soft and nontender Skin: redness of sun exposed areas. No rashes. Extremities: No edema. Psych: Normal affect and mood. Objective Last Vital Signs Temp 36.3 C L 10/03/22 15:36 Pulse 60 10/03/22 15:36 Resp 18 10/03/22 03:40 BP 132/78 10/03/22 15:36 Pulse Ox 95 10/03/22 15:36 Laboratory Results - last 24 hr 10/03/22 10/03/22 06:37 06:37 WBC 3.90 L RBC 3.69 L Hgb 11.1 L Hct 32.7 L MCV 89 MCH 30.1 MCHC 33.9 RDW 13.4 Plt Count 86 L MPV 10.4 Sodium 143 Potassium 3.9 Chloride 112 H Carbon Dioxide 24.8 Anion Gap 6.2 BUN 14 Creatinine 0.9 Est GFR (CKD-EPI 2020) 97.17 Glucose 83 Calcium 8.3 L Magnesium 2.0 Total Bilirubin 0.5 AST 12 L ALT 11 L Alkaline Phosphatase 62 Total Protein 5.0 L Albumin 2.6 L Time Spent with Patient Time Spent with Patient: 25-34 minutes Time was spent: preparing to see the patient(eg.review tests), obtaining and/or reviewing separately otained hiistory, ordering medications,tests, procedures, referring, communicating with other health career development coordinator, indepentently interpreting results and counseling the patient
[2022-10-03 19:59] VITALS: BP 126/75; PULSE 71; RESP 16; TEMP 36.3; O2SAT 98
[2022-10-03 23:04] VITALS: BP 123/89; PULSE 45; RESP 16; TEMP 36.6; O2SAT 99
[2022-10-04] MEDS: PIPERACILLIN/TAZO 3.375 GM in Normal Saline 50 ML IVPB ×2 (02:05→08:36)
[2022-10-04] MEDS: VANCOMYCIN/WATER (PEG) 1 GM/200 ML BAG IV (02:56)
[2022-10-04 03:52] VITALS: BP 110/70; PULSE 60; RESP 18; TEMP 36.6; O2SAT 97
[2022-10-04] MEDS: Levothyroxine 88 MCG TAB PO (06:46)
[2022-10-04 07:10] VITALS: BP 119/66; PULSE 45; RESP 18; TEMP 36.5; O2SAT 96
--- NOTE | 2022-10-04 07:25 | W.PM.DS.N ---
Date of service: 10/04/22 Time of Service: 07:25 DS: Diagnosis Discharge Diagnosis (1) Fever: Status: Acute Asessment and Plan: Tm of 89F at home. No fever since presentation to hospital. UA and CXR w/o evidence of acute process. Blood cxs negative after 48 hours. (2) Multiple myeloma: Status: Chronic Asessment and Plan: Chemotherapy regimen of carfilzomib, daratumumab and Zometa. Also on pomalidomide daily. Dr Singleton, oncologist consulted. She was concerned about a potential port infection but in the ED blood cultures were obtain both peripherally and from the port. This is the second time he had a fever directly after a round of chemotherapy; potentially a reaction to the treatment. He will discuss this further with oncology. (3) Stem cells transplant status: Status: Resolved Asessment and Plan: Cont chronic suppression tx with Bactrim and acyclovir. (4) Immunosuppression: Status: Chronic Asessment and Plan: As above. Discharge Plan Disposition Patient Disposition: Home Condition: Good Discharge Details Reason For Visit: Fever,Multiple Myeloma,Bone Marrow Transplant Admit Date/Time: 10/02/22 03:39 Admit Provider: Alex Braun Attending Provider: Alex Braun Primary Care Provider: Ana M Mota Hospital Course Hospital Course: This is a 62-year-old male patient with a history of multiple myeloma diagnosed in April 2021 status post bone marrow transplant in March 2022 now receiving chemotherapy with recent dosing of chemotherapy the day of presentation to the ED.? He has had a history of mitral valve repair on aspirin daily and hypothyroidism on supplement.? 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 He has been active.? He presents with fever after receiving his chemotherapy with no focalizing symptoms.? His appetite is fair with slight nausea and he has had no diaphoresis or rigors.? He chronically is on suppression therapy with Bactrim 3 times a week and acyclovir daily.? He is on oral treatment as well after his transplant and is immunosuppressed.? He is a full code. He was admitted for broad-spectrum IV antibiotic therapy pending cultures as per recommendations of [facility] oncology.? He is cared for by Dr. Singleton at [facility]. See Diagnosis Follow up with oncologist as per their recommendation Home Meds and New Rx's Prescriptions: Continued Pomalyst 2 mg capsule 2 mg PO DAILY Rx Instructions: use for 3 weeks, then off for 1 week. acyclovir 400 mg tablet 800 mg PO BID Patient Comments: TAKE ONE TABLET BY MOUTH TWICE A DAY sulfamethoxazole-trimethoprim [Bactrim] 400 mg PO MOWEFR Rx Instructions: 3 times a week amoxicillin 500 mg capsule 2,000 mg PO DIRECTED Rx Instructions: TAKE ALL 4 CAPS ONE HOUR PRIOR TO DENTIST levothyroxine [Synthroid] 88 mcg tablet 88 mcg PO DAILY Qty: 90 3RF aspirin 325 mg tablet,delayed release (DR/EC) See Rx Instructions .ROUTE .COMPLEX Rx Instructions: Take 1 tablet by mouth daily. loperamide 2 mg Capsule 2 mg PO Q6H PRN PRNQty: 0 0RF Discharge Instructions Additional Instructions: Return for fever, cough, headache, stiff neck or any concerns of an infectious process. Stand Alone Forms: Nursing Discharge Form Activity:: Activity as Tolerated Equipment/Supplies:: No Equipment Needed Diet:: As Tolerated Discharge Orders Discharge Orders: Discharge Order (Routine); Ordered 10/04/22 Ordered By: Eligio Johnson DS: Summary Time Spent with Patient providing and/or coordinating discharge services: Less than 30 minutes Status at Discharge Functional status at discharge: independent ambulation Overall status at discharge: patient is back to baseline Mental Status: mental status grossly normal Speech and Movement: speech and movement normal Mood: congruent mood Affect: normal affect Exam Narrative Exam Narrative: General: Lying in bed. NAD. Pleasant and cooprative. VS: BP 119/66. P 45. RR 18. Temp 36.5.RA O2 sat. 96% Psych: Normal affect and mood. Psych Mental Status: mental status grossly normal Speech and Movement: speech and movement normal Mood: congruent mood Affect: normal affect DS: Data Vitals/I&O Vitals and I&O: Vital Signs Temperature 36.5 C 10/04/22 07:10 Temperature Source Tympanic 10/04/22 07:10 Pulse 45 L 10/04/22 07:10 Pulse Rhythm Regular 10/03/22 19:48 Respiratory Rate 18 10/04/22 07:10 Respiratory Effort Normal, Non-Labored 10/03/22 19:48 Respiratory Depth Normal 10/03/22 19:48 Respiratory Pattern Normal 10/03/22 19:48 Blood Pressure 119/66 10/04/22 07:10 Blood Pressure Position Sitting 10/01/22 23:39 Pulse Oximetry 96 10/04/22 07:10 Oxygen Delivery Method Room Air 10/04/22 07:10 Oxygen Flow Rate 0 10/04/22 07:10 Pain Level 0 10/03/22 19:48 Comment Antony, DO aware of BP. No new ords recieved. 10/02/22 04:25 Intake & Output 10/03/22 10/03/22 10/04/22 11:59 23:59 11:59 Intake Total 460 / 760 300 / 760 250 / 250 Balance 460 / 760 300 / 760 250 / 250 Weight 74.026 kg Intake: IV 260 / 560 300 / 560 250 / 250 Oral 200 / 200 Other: Urine Appearance Clear Clear Data Completed and Pending Labs on day of discharge: Labs from last 24 hours 10/04/22 10/04/22 13:00 05:35 WBC Pending RBC Pending Hgb Pending Hct Pending MCV Pending MCH Pending MCHC Pending RDW Pending Plt Count Pending MPV Pending Immature Gran % Pending Neutrophils % Pending Lymphocytes % Pending Monocytes % Pending Eosinophils % Pending Basophils % Pending Absolute Neutrophils Pending Absolute Lymphocytes Pending Absolute Monocytes Pending Absolute Eosinophils Pending Absolute Basophils Pending Vancomycin Trough Pending 10/03/22 12:13 Blood Blood Culture - Pending Preliminary micro results at discharge 10/02/22 00:25 Blood Culture - Preliminary Blood NO GROWTH 48 HOURS 10/02/22 00:25 Blood Culture - Preliminary Blood NO GROWTH 48 HOURS 10/03/22 12:13 Blood Culture - Pending Blood 10/02/22 02:45 Urine Culture - Preliminary Urine - Voided PFSH All Active Problems Fever (Acute) Hypothyroidism (Acute 04/25/16) Nevus, non-neoplastic (Acute) multiple nevi Rheumatoid arthritis with positive rheumatoid factor (Acute 01/14/17) Peripheral neuropathy (Acute) Anxiety (Chronic) Psoriasis (Chronic) Multiple myeloma (Chronic ~04/2021) Managed by Dr. Singleton at [facility]. Weight loss, non-intentional (Acute) Cataracts, bilateral (Acute) Normocytic anemia (Acute) Fever of unknown origin (Acute) Immunosuppression (Chronic) Medical History Family history of malignant neoplasm of prostate father; grandfather Hyperthyroidism Iron deficiency anemia (11/03/12) extensive w/u. no cause found vegetarian. perhaps related to Fe def. Mitral valve regurgitation repaired Surgical History History of colonoscopy (~05/30/19) History of hernia repair inguinal bilat History of mitral valve repair S/P vasectomy Status post adenoidectomy Status post tonsillectomy Family History Mother Hyperlipidemia Father , AGE 83 Essential hypertension Hyperlipidemia Prostate cancer Sister No problems noted. Sister Depression Brother No problems noted. Maternal Grandfather , AGE 82 No problems noted. Paternal Grandfather , AGE 72 Prostate cancer Maternal Grandmother , AGE 78 No problems noted. Paternal Grandmother , AGE 88 Cancer Daughter Depression Daughter No problems noted. 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[facility] [employer] Pets and animals: Yes Pets and animals: cat(s) Sexually active: No Do you think of yourself as: straight/heterosexual Current gender identity: male Other: currently going through a divorce What is your relationship status?: How often do you talk on the phone with friends or family?: twice per week How often do you get together with friends or relatives?: once per week How often do you attend sabianism or mormonism services?: decline to answer Do you belong to any clubs or organized social groups?: no Panel score (0-1 are the most socially isolated patients): 1 What type of physical activity do you participate in: walking Duration: 15-30 minutes/day Frequency: daily Charito/Confucianism: No preference Special charito needs: No Seatbelt use: always Helmet use: Yes Helmet use: always Drive intox or ride w/intox driver license reviewing officer: No Do you feel safe at home: Yes Do you feel safe in your relationship?: Yes Time Spent with Patient Time Spent with Patient: <45 minutes Time was spent: preparing to see the patient(eg.review tests), obtaining and/or reviewing separately otained hiistory, referring, communicating with other health career professional, indepentently interpreting results, counseling the patient and care coordination
[2022-10-04 07:43] LABS: Abs Immature Grans 0.01 10^3/uL (0.0-0.06); Absolute Basophil Count 0.02 10^3/uL (0.0-0.2); Absolute Eosinophil Count 0.08 10^3/uL (0.0-0.7); Absolute Lymphocyte Count 0.47 10^3/uL (1.2-3.4); Absolute Monocyte Count 0.52 10^3/uL (0.1-0.8); Basophils % 0.8; Eosinophils % 3.3; HCT 32.5 % (40.0-50.0); HGB 11.1 g/dL (13.5-17.5); Immature Grans % 0.4; Lymphocytes % 19.6; MCH 30.1 pg (27.0-33.0); MCHC 34.2 % (32.0-36.0); MCV 88 fL (80-95); MPV 10.2 fL (8.0-11.0); Monocytes % 21.7; Neutrophils % 54.2; RBC 3.69 10^6/uL (4.36-5.78); RDW 13.2 % (11.8-14.1)
[2022-10-04 07:59] LABS: Platelet Count 83 10^3/uL (130-400)
[2022-10-04 08:00] VITALS: BP 119/66; O2SAT 96
[2022-10-04] MEDS: Acyclovir 400 MG TAB 800 MG PO (08:35)
[2022-10-04] MEDS: Aspirin E.C. 325 MG TABEC PO (08:35)
[2022-10-04] MEDS: Heparin 500 UNITS/5 ML SYRINGE IVP (08:36)
--- NOTE | 2022-10-04 14:56 | PDOC.CMDIS ---
Date of service: 10/04/22 Time of Service: 14:56 LACE Index Scoring Tool Questions: Length of Stay (in days): 2 Was the patient admitted via the E.D.?: Yes Comorbidities: Any Tumor E.D. Visits: 1 Answers: Total Score: 8 Risk of Readmission: Low Risk Care Management Discharge Plan Reason for Hospitalization: fever Discharge Plan: Harvinder will be discharged home with no new services. He will follow up with his PCP and Oncology team and transport via private vehicle with family. Patient/Family Education Needs: Review discharge instructions, discuss Ask Me Three.
== END 2022-10-04 09:44 | disposition home or self-care (01) | DRG 864 ==
LOC: ER 10-02 04:08 → MS 10-02 04:22
PROVIDERS: Family Medicine; Admitting Provider Family Medicine; Emergency Provider Student in an Organized Health Care Education/Training Program; PCP Family Medicine; Visit Provider Family Medicine
DX: R50.2 Drug induced fever (principal); C90.00 Multiple myeloma not having achieved remission; Z94.84 Stem cells transplant status; D84.9 Immunodeficiency, unspecified; Z95.2 Presence of prosthetic heart valve; Z79.82 Long term (current) use of aspirin; E03.9 Hypothyroidism, unspecified; T45.1X5A Adverse effect of antineoplastic and immunosuppressive drugs, initial encounter; M05.9 Rheumatoid arthritis with rheumatoid factor, unspecified; G62.9 Polyneuropathy, unspecified; F41.9 Anxiety disorder, unspecified; L40.9 Psoriasis, unspecified; D64.9 Anemia, unspecified; R63.4 Abnormal weight loss; Z68.21 Body mass index [BMI] 21.0-21.9, adult; Z95.828 Presence of other vascular implants and grafts; Z79.2 Long term (current) use of antibiotics
CPT/HCPCS: 80053; 83690; 84145; 85027; 87040; 87637; 93005; J1650; 71046; 80202; 81003; 83605; 83735; 85025; 87086; 93010; 99222; 99232; 99238; J2543

== ENCOUNTER 2022-10-29 03:38 | Outpatient (RCR) | payer BC, SELFPAY ==
[2022-10-15 10:08] LABS: Abs Immature Grans 0.03 10^3/uL (0.0-0.06); Absolute Basophil Count 0.03 10^3/uL (0.0-0.2); Absolute Eosinophil Count 0.07 10^3/uL (0.0-0.7); Absolute Lymphocyte Count 0.62 10^3/uL (1.2-3.4); Absolute Monocyte Count 0.79 10^3/uL (0.1-0.8); Absolute Neutrophil Count 3.65 10^3/uL (1.2-6.7); Basophils % 0.6; Eosinophils % 1.3; HCT 39.8 % (40.0-50.0); HGB 13.5 g/dL (13.5-17.5); Immature Grans % 0.6; Lymphocytes % 11.9; MCH 30.5 pg (27.0-33.0); MCHC 33.9 % (32.0-36.0); MCV 90 fL (80-95); MPV 9.4 fL (8.0-11.0); Monocytes % 15.2; Neutrophils % 70.4; Platelet Count 148 10^3/uL (130-400); RBC 4.43 10^6/uL (4.36-5.78); RDW 13.5 % (11.8-14.1); RDW-SD 44.2 fL; WBC 5.19 10^3/uL (4.4-10.8)
[2022-10-15 10:37] LABS: ALT 14 U/L (16-63); AST 14 U/L (15-37); Albumin 4.1 g/dL (3.4-5.0); Alkaline Phosphatase 109 U/L (46-116); Anion Gap 6.3 mmol/L (3-11); BUN 14 mg/dL (7-18); Bilirubin, Total 0.7 mg/dL (0.2-1.0); CO2 30.7 mmol/L (21.0-32.0); CREATININE 0.9 mg/dL (0.70-1.30); Calcium 8.6 mg/dL (8.5-10.1); Chloride 102 mmol/L (98-107); Estimated GFR 97.17 (mL/min/1.73m2); Glucose 115 mg/dL (74-106); Sodium 139 mmol/L (136-145); Total Protein 7.1 g/dL (6.4-8.2)
[2022-10-16 09:48] LABS: IgA 21 mg/dL (85-499); IgG 253 mg/dL (610-1616); IgM 12 mg/dL (35-242); Kappa Free Light Chain 0.55 mg/dL (0.33-1.94); Lambda Free Light Chain <0.44 mg/dL (0.57-2.63)
[2022-10-16 12:41] LABS: Albumin 68.1 % (55.8-66.1); Albumin g/dL 4.4 g/dL (3.6-5.2); Comment (See Note); Total Protein 6.5 g/dL (6.3-8.2)
[2022-10-16 15:09] LABS: Immunotyping, Serum (See Note)
[2022-10-29] MEDS: Normal Saline Flush 10 ML SYR IVP (12:22)
[2022-10-29 12:46] LABS: Abs Immature Grans 0.01 10^3/uL (0.0-0.06); Absolute Basophil Count 0.04 10^3/uL (0.0-0.2); Absolute Eosinophil Count 0.02 10^3/uL (0.0-0.7); Absolute Lymphocyte Count 0.87 10^3/uL (1.2-3.4); Absolute Neutrophil Count 1.46 10^3/uL (1.2-6.7); Basophils % 1.3; Eosinophils % 0.6; HCT 38.3 % (40.0-50.0); HGB 12.9 g/dL (13.5-17.5); Immature Grans % 0.3; Lymphocytes % 28.1; MCH 30.5 pg (27.0-33.0); MCHC 33.7 % (32.0-36.0); MCV 91 fL (80-95); MPV 9.4 fL (8.0-11.0); Monocytes % 22.6; Neutrophils % 47.1; Platelet Count 182 10^3/uL (130-400); RBC 4.23 10^6/uL (4.36-5.78); RDW 13.8 % (11.8-14.1); RDW-SD 46.5 fL
[2022-10-29 13:01] LABS: ALT 20 U/L (16-63); AST 17 U/L (15-37); Albumin 3.9 g/dL (3.4-5.0); Alkaline Phosphatase 103 U/L (46-116); Anion Gap 6.3 mmol/L (3-11); BUN 10 mg/dL (7-18); Bilirubin, Total 0.6 mg/dL (0.2-1.0); CO2 28.7 mmol/L (21.0-32.0); CREATININE 0.8 mg/dL (0.70-1.30); Calcium 9.2 mg/dL (8.5-10.1); Chloride 107 mmol/L (98-107); Estimated GFR 100.69 (mL/min/1.73m2); Glucose 92 mg/dL (74-106); Potassium 3.9 mmol/L (3.5-5.1); Sodium 142 mmol/L (136-145); Total Protein 6.5 g/dL (6.4-8.2)
[2022-10-30 10:17] LABS: IgA <13 mg/dL (85-499); IgG 247 mg/dL (610-1616); IgM 17 mg/dL (35-242); Kappa Free Light Chain 0.42 mg/dL (0.33-1.94); Lambda Free Light Chain <0.44 mg/dL (0.57-2.63)
[2022-10-30 14:54] LABS: Albumin 68.3 % (55.8-66.1); Albumin g/dL 4.2 g/dL (3.6-5.2); Comment (See Note); Total Protein 6.1 g/dL (6.3-8.2)
== END 2022-11-10 23:59 | disposition home or self-care (01) ==
LOC: INF 03:38
PROVIDERS: Nurse Practitioner Adult Health; PCP Family Medicine; Visit Provider Internal Medicine Hematology & Oncology
DX: C90.00 Multiple myeloma not having achieved remission (principal); Z45.2 Encounter for adjustment and management of vascular access device
CPT/HCPCS: 36415; 36591; 80053; 82784; 83883; 84165; 85025; 86320

== ENCOUNTER 2022-11-26 02:32 | Outpatient (RCR) | payer BC, SELFPAY ==
[2022-11-26] MEDS: Normal Saline Flush 10 ML SYR IVP (08:59)
[2022-11-26 09:02] LABS: Abs Immature Grans 0.01 10^3/uL (0.0-0.06); Absolute Basophil Count 0.05 10^3/uL (0.0-0.2); Absolute Monocyte Count 0.65 10^3/uL (0.1-0.8); Absolute Neutrophil Count 2.01 10^3/uL (1.2-6.7); Basophils % 1.4; Eosinophils % 2.8; HCT 38.1 % (40.0-50.0); HGB 13.1 g/dL (13.5-17.5); Immature Grans % 0.3; Lymphocytes % 22.1; MCH 31.3 pg (27.0-33.0); MCHC 34.4 % (32.0-36.0); MCV 91 fL (80-95); Neutrophils % 55.4; Platelet Count 177 10^3/uL (130-400); RBC 4.19 10^6/uL (4.36-5.78); RDW 13.8 % (11.8-14.1); RDW-SD 46.2 fL; WBC 3.62 10^3/uL (4.4-10.8)
[2022-11-26 09:27] LABS: ALT 22 U/L (16-63); AST 17 U/L (15-37); Albumin 3.7 g/dL (3.4-5.0); Alkaline Phosphatase 97 U/L (46-116); Anion Gap 7.6 mmol/L (3-11); BUN 12 mg/dL (7-18); Bilirubin, Total 0.9 mg/dL (0.2-1.0); CO2 28.4 mmol/L (21.0-32.0); CREATININE 0.9 mg/dL (0.70-1.30); Calcium 9.3 mg/dL (8.5-10.1); Chloride 107 mmol/L (98-107); Estimated GFR 97.17 (mL/min/1.73m2); Glucose 98 mg/dL (74-106); Potassium 3.9 mmol/L (3.5-5.1); Sodium 143 mmol/L (136-145); Total Protein 6.3 g/dL (6.4-8.2)
[2022-11-27 10:45] LABS: IgA <13 mg/dL (85-499); IgG 264 mg/dL (610-1616); IgM 13 mg/dL (35-242); Kappa Free Light Chain 0.56 mg/dL (0.33-1.94); Lambda Free Light Chain <0.44 mg/dL (0.57-2.63)
[2022-11-27 14:35] LABS: Albumin 67.4 % (55.8-66.1); Comment (See Note); Total Protein 5.9 g/dL (6.3-8.2)
== END 2022-12-11 23:59 | disposition home or self-care (01) ==
LOC: INF 02:32
PROVIDERS: Nurse Practitioner Adult Health; PCP Family Medicine; Visit Provider Internal Medicine Hematology & Oncology
DX: C90.00 Multiple myeloma not having achieved remission (principal); Z45.2 Encounter for adjustment and management of vascular access device
CPT/HCPCS: 36591; 80053; 82784; 83883; 84165; 85025

== ENCOUNTER 2022-12-24 02:43 | Outpatient (RCR) | payer BC, SELFPAY ==
[2022-12-24] MEDS: Normal Saline Flush 10 ML SYR IVP (08:56)
[2022-12-24 09:05] LABS: Abs Immature Grans 0.01 10^3/uL (0.0-0.06); Absolute Basophil Count 0.07 10^3/uL (0.0-0.2); Absolute Eosinophil Count 0.11 10^3/uL (0.0-0.7); Absolute Lymphocyte Count 0.94 10^3/uL (1.2-3.4); Absolute Monocyte Count 0.68 10^3/uL (0.1-0.8); Basophils % 1.7; Eosinophils % 2.7; HGB 13.8 g/dL (13.5-17.5); Immature Grans % 0.2; Lymphocytes % 22.9; MCH 30.9 pg (27.0-33.0); MCHC 33.7 % (32.0-36.0); MCV 92 fL (80-95); MPV 9.8 fL (8.0-11.0); Monocytes % 16.5; Platelet Count 198 10^3/uL (130-400); RBC 4.47 10^6/uL (4.36-5.78); RDW-SD 43.6 fL; WBC 4.11 10^3/uL (4.4-10.8)
[2022-12-24 09:22] LABS: ALT 23 U/L (16-63); AST 13 U/L (15-37); Albumin 3.8 g/dL (3.4-5.0); Alkaline Phosphatase 104 U/L (46-116); Anion Gap 6.1 mmol/L (3-11); BUN 15 mg/dL (7-18); Bilirubin, Total 0.6 mg/dL (0.2-1.0); CO2 28.9 mmol/L (21.0-32.0); CREATININE 0.9 mg/dL (0.70-1.30); Calcium 9.4 mg/dL (8.5-10.1); Chloride 107 mmol/L (98-107); Estimated GFR 97.17 (mL/min/1.73m2); Glucose 111 mg/dL (74-106); Potassium 3.8 mmol/L (3.5-5.1); Sodium 142 mmol/L (136-145); Total Protein 6.6 g/dL (6.4-8.2)
[2022-12-25 09:09] LABS: IgA <13 mg/dL (85-499); IgG 303 mg/dL (610-1616); IgM 15 mg/dL (35-242); Kappa Free Light Chain 0.54 mg/dL (0.33-1.94); Lambda Free Light Chain <0.44 mg/dL (0.57-2.63)
[2022-12-25 13:09] LABS: Albumin 67.3 % (55.8-66.1); Albumin g/dL 4.2 g/dL (3.6-5.2); Comment (See Note); Total Protein 6.2 g/dL (6.3-8.2)
== END 2023-01-10 23:59 | disposition home or self-care (01) ==
LOC: INF 02:43
PROVIDERS: Nurse Practitioner Adult Health; PCP Family Medicine; Visit Provider Internal Medicine Hematology & Oncology
DX: C90.00 Multiple myeloma not having achieved remission (principal); Z45.2 Encounter for adjustment and management of vascular access device
CPT/HCPCS: 36591; 80053; 82784; 83883; 84165; 85025

== ENCOUNTER 2023-01-21 01:32 | Outpatient (RCR) | payer BC, SELFPAY ==
[2023-01-21] MEDS: Normal Saline Flush 10 ML SYR IVP (08:44)
[2023-01-21 08:54] LABS: Abs Immature Grans 0.02 10^3/uL (0.0-0.06); Absolute Basophil Count 0.05 10^3/uL (0.0-0.2); Absolute Eosinophil Count 0.07 10^3/uL (0.0-0.7); Absolute Lymphocyte Count 0.75 10^3/uL (1.2-3.4); Absolute Monocyte Count 0.61 10^3/uL (0.1-0.8); Absolute Neutrophil Count 2.69 10^3/uL (1.2-6.7); Basophils % 1.2; Eosinophils % 1.7; HCT 38.6 % (40.0-50.0); HGB 13.2 g/dL (13.5-17.5); Immature Grans % 0.5; Lymphocytes % 17.9; MCH 31.5 pg (27.0-33.0); MCHC 34.2 % (32.0-36.0); MCV 92 fL (80-95); MPV 9.3 fL (8.0-11.0); Monocytes % 14.6; Neutrophils % 64.1; Platelet Count 196 10^3/uL (130-400); RBC 4.19 10^6/uL (4.36-5.78); RDW 13.4 % (11.8-14.1); RDW-SD 44.7 fL; WBC 4.19 10^3/uL (4.4-10.8)
[2023-01-21 09:16] LABS: ALT 23 U/L (16-63); AST 19 U/L (15-37); Albumin 3.6 g/dL (3.4-5.0); Alkaline Phosphatase 96 U/L (46-116); Anion Gap 5.4 mmol/L (3-11); BUN 13 mg/dL (7-18); Bilirubin, Total 0.6 mg/dL (0.2-1.0); CO2 28.6 mmol/L (21.0-32.0); CREATININE 0.8 mg/dL (0.70-1.30); Calcium 9.6 mg/dL (8.5-10.1); Chloride 106 mmol/L (98-107); Estimated GFR 100.06 (mL/min/1.73m2); Glucose 98 mg/dL (74-106); Sodium 140 mmol/L (136-145); Total Protein 6.3 g/dL (6.4-8.2)
[2023-01-22 09:49] LABS: IgA <13 mg/dL (85-499); IgG 288 mg/dL (610-1616); IgM 13 mg/dL (35-242); Kappa Free Light Chain 0.63 mg/dL (0.33-1.94); Lambda Free Light Chain <0.44 mg/dL (0.57-2.63)
[2023-01-22 13:45] LABS: Comment (See Note); Total Protein 5.9 g/dL (6.3-8.2)
[2023-01-22 16:19] LABS: Immunotyping, Serum (See Note)
== END 2023-02-10 23:59 | disposition home or self-care (01) ==
LOC: INF 01:32
PROVIDERS: PCP Family Medicine; Visit Provider Internal Medicine Hematology & Oncology
DX: C90.00 Multiple myeloma not having achieved remission (principal); Z45.2 Encounter for adjustment and management of vascular access device
CPT/HCPCS: 36591; 80053; 82784; 83883; 84165; 85025; 86320

== ENCOUNTER 2023-02-19 02:09 | Outpatient (RCR) | payer BC, SELFPAY ==
[2023-02-19] MEDS: Normal Saline Flush 10 ML SYR IVP (08:54)
[2023-02-19 09:25] LABS: Abs Immature Grans 0.01 10^3/uL (0.0-0.06); Absolute Basophil Count 0.06 10^3/uL (0.0-0.2); Absolute Eosinophil Count 0.11 10^3/uL (0.0-0.7); Absolute Lymphocyte Count 0.85 10^3/uL (1.2-3.4); Absolute Monocyte Count 0.69 10^3/uL (0.1-0.8); Absolute Neutrophil Count 2.05 10^3/uL (1.2-6.7); Basophils % 1.6; Eosinophils % 2.9; HCT 40.4 % (40.0-50.0); HGB 13.8 g/dL (13.5-17.5); Immature Grans % 0.3; Lymphocytes % 22.5; MCH 31.4 pg (27.0-33.0); MCHC 34.2 % (32.0-36.0); MCV 92 fL (80-95); MPV 9.3 fL (8.0-11.0); Monocytes % 18.3; Neutrophils % 54.4; Platelet Count 170 10^3/uL (130-400); RBC 4.39 10^6/uL (4.36-5.78); RDW 13.1 % (11.8-14.1); RDW-SD 44.7 fL; WBC 3.77 10^3/uL (4.4-10.8)
[2023-02-19 09:53] LABS: ALT 22 U/L (16-63); AST 18 U/L (15-37); Albumin 3.6 g/dL (3.4-5.0); Alkaline Phosphatase 92 U/L (46-116); Anion Gap 8.6 mmol/L (3-11); BUN 14 mg/dL (7-18); Bilirubin, Total 0.7 mg/dL (0.2-1.0); CO2 27.4 mmol/L (21.0-32.0); Calcium 9.5 mg/dL (8.5-10.1); Chloride 106 mmol/L (98-107); Glucose 132 mg/dL (74-106); Potassium 3.6 mmol/L (3.5-5.1); Sodium 142 mmol/L (136-145); Total Protein 6.3 g/dL (6.4-8.2)
[2023-02-19 13:29] LABS: Ferritin 46 ng/mL (26-388)
[2023-02-20 10:27] LABS: IgA <13 mg/dL (85-499); IgG 306 mg/dL (610-1616); IgM 12 mg/dL (35-242); Kappa Free Light Chain 0.58 mg/dL (0.33-1.94); Lambda Free Light Chain <0.44 mg/dL (0.57-2.63)
[2023-02-20 13:48] LABS: Total Protein 5.9 g/dL (6.3-8.2)
[2023-02-20 13:59] LABS: Comment (See Note)
== END 2023-03-12 23:59 | disposition home or self-care (01) ==
LOC: INF 02:09
PROVIDERS: Nurse Practitioner Adult Health; PCP Family Medicine; Visit Provider Internal Medicine Hematology & Oncology
DX: C90.00 Multiple myeloma not having achieved remission (principal); Z45.2 Encounter for adjustment and management of vascular access device
CPT/HCPCS: 36591; 80053; 82784; 82728; 83883; 84165; 85025

== ENCOUNTER 2023-03-18 02:33 | Outpatient (RCR) | payer BC, SELFPAY ==
[2023-03-18] MEDS: Normal Saline Flush 10 ML SYR IVP (08:44)
[2023-03-18 09:06] LABS: Abs Immature Grans 0.02 10^3/uL (0.0-0.06); Absolute Basophil Count 0.12 10^3/uL (0.0-0.2); Absolute Eosinophil Count 0.52 10^3/uL (0.0-0.7); Absolute Lymphocyte Count 0.86 10^3/uL (1.2-3.4); Absolute Monocyte Count 1.24 10^3/uL (0.1-0.8); Absolute Neutrophil Count 3.39 10^3/uL (1.2-6.7); Eosinophils % 8.5; HCT 39.7 % (40.0-50.0); HGB 13.5 g/dL (13.5-17.5); Immature Grans % 0.3; MCH 31.3 pg (27.0-33.0); MCV 92 fL (80-95); MPV 9.5 fL (8.0-11.0); Monocytes % 20.2; Platelet Count 215 10^3/uL (130-400); RBC 4.31 10^6/uL (4.36-5.78); RDW 12.7 % (11.8-14.1); RDW-SD 43.2 fL; WBC 6.15 10^3/uL (4.4-10.8)
[2023-03-18 09:18] LABS: ALT 19 U/L (16-63); AST 14 U/L (15-37); Albumin 3.4 g/dL (3.4-5.0); Alkaline Phosphatase 107 U/L (46-116); Anion Gap 7.7 mmol/L (3-11); BUN 12 mg/dL (7-18); Bilirubin, Total 0.6 mg/dL (0.2-1.0); CO2 29.3 mmol/L (21.0-32.0); CREATININE 0.9 mg/dL (0.70-1.30); Calcium 9.1 mg/dL (8.5-10.1); Chloride 105 mmol/L (98-107); Estimated GFR 96.57 (mL/min/1.73m2); Glucose 105 mg/dL (74-106); Sodium 142 mmol/L (136-145); Total Protein 6.6 g/dL (6.4-8.2)
[2023-03-19 11:04] LABS: IgA <13 mg/dL (85-499); IgG 311 mg/dL (610-1616); IgM <12 mg/dL (35-242); Kappa Free Light Chain 0.56 mg/dL (0.33-1.94); Lambda Free Light Chain <0.44 mg/dL (0.57-2.63)
[2023-03-19 16:05] LABS: Albumin 61.5 % (55.8-66.1); Albumin g/dL 3.7 g/dL (3.6-5.2); Comment (See Note)
== END 2023-04-12 23:59 | disposition home or self-care (01) ==
LOC: INF 02:33
PROVIDERS: Nurse Practitioner Adult Health; PCP Family Medicine; Visit Provider Internal Medicine Hematology & Oncology
DX: C90.00 Multiple myeloma not having achieved remission (principal); Z45.2 Encounter for adjustment and management of vascular access device
CPT/HCPCS: 36591; 80053; 82784; 83883; 84165; 85025

== ENCOUNTER 2023-05-13 03:22 | Outpatient (RCR) | payer BC, SELFPAY ==
[2023-04-15] MEDS: Normal Saline Flush 10 ML SYR IVP (08:50)
[2023-04-15 09:28] LABS: Abs Immature Grans 0.01 10^3/uL (0.0-0.06); Absolute Basophil Count 0.06 10^3/uL (0.0-0.2); Absolute Eosinophil Count 0.13 10^3/uL (0.0-0.7); Absolute Monocyte Count 0.67 10^3/uL (0.1-0.8); Absolute Neutrophil Count 2.67 10^3/uL (1.2-6.7); Basophils % 1.3; Eosinophils % 2.8; HCT 41.2 % (40.0-50.0); Immature Grans % 0.2; Lymphocytes % 23.7; MCH 31.3 pg (27.0-33.0); MCV 92 fL (80-95); MPV 9.6 fL (8.0-11.0); Monocytes % 14.4; Neutrophils % 57.6; Platelet Count 218 10^3/uL (130-400); RBC 4.48 10^6/uL (4.36-5.78); RDW-SD 43.9 fL; WBC 4.64 10^3/uL (4.4-10.8)
[2023-04-15 09:50] LABS: ALT 28 U/L (16-63); AST 19 U/L (15-37); Albumin 3.4 g/dL (3.4-5.0); Alkaline Phosphatase 100 U/L (46-116); Anion Gap 8.3 mmol/L (3-11); BUN 16 mg/dL (7-18); Bilirubin, Total 0.6 mg/dL (0.2-1.0); CO2 27.7 mmol/L (21.0-32.0); CREATININE 0.9 mg/dL (0.70-1.30); Calcium 9.3 mg/dL (8.5-10.1); Chloride 106 mmol/L (98-107); Estimated GFR 96.57 (mL/min/1.73m2); Glucose 106 mg/dL (74-106); Potassium 3.8 mmol/L (3.5-5.1); Sodium 142 mmol/L (136-145); Total Protein 6.2 g/dL (6.4-8.2)
[2023-04-16 09:39] LABS: IgA <13 mg/dL (85-499); IgG 303 mg/dL (610-1616); IgM <12 mg/dL (35-242); Kappa Free Light Chain 0.65 mg/dL (0.33-1.94); Lambda Free Light Chain <0.44 mg/dL (0.57-2.63)
[2023-04-16 14:30] LABS: Albumin 65.5 % (55.8-66.1); Albumin g/dL 3.8 g/dL (3.6-5.2); Total Protein 5.8 g/dL (6.3-8.2)
[2023-04-16 15:38] LABS: Comment (See Note)
[2023-05-13 09:26] LABS: Abs Immature Grans 0.01 10^3/uL (0.0-0.06); Absolute Basophil Count 0.04 10^3/uL (0.0-0.2); Absolute Lymphocyte Count 0.77 10^3/uL (1.2-3.4); Absolute Monocyte Count 0.65 10^3/uL (0.1-0.8); Absolute Neutrophil Count 2.14 10^3/uL (1.2-6.7); Basophils % 1.1; Eosinophils % 2.7; HCT 39.3 % (40.0-50.0); HGB 13.4 g/dL (13.5-17.5); Immature Grans % 0.3; Lymphocytes % 20.8; MCHC 34.1 % (32.0-36.0); MCV 91 fL (80-95); MPV 9.6 fL (8.0-11.0); Monocytes % 17.5; Neutrophils % 57.6; Platelet Count 149 10^3/uL (130-400); RBC 4.32 10^6/uL (4.36-5.78); RDW 13.1 % (11.8-14.1); WBC 3.71 10^3/uL (4.4-10.8)
[2023-05-13 09:50] LABS: ALT 27 U/L (16-63); AST 16 U/L (15-37); Albumin 3.6 g/dL (3.4-5.0); Alkaline Phosphatase 83 U/L (46-116); Anion Gap 6.5 mmol/L (3-11); BUN 12 mg/dL (7-18); Bilirubin, Total 0.9 mg/dL (0.2-1.0); CO2 28.5 mmol/L (21.0-32.0); CREATININE 0.8 mg/dL (0.70-1.30); Calcium 9.3 mg/dL (8.5-10.1); Chloride 107 mmol/L (98-107); Estimated GFR 100.06 (mL/min/1.73m2); Glucose 107 mg/dL (74-106); Potassium 4.1 mmol/L (3.5-5.1); Sodium 142 mmol/L (136-145); Total Protein 6.1 g/dL (6.4-8.2)
[2023-05-13] MEDS: Normal Saline Flush 10 ML SYR IVP (09:52)
[2023-05-14 10:24] LABS: IgA <13 mg/dL (85-499); IgG 287 mg/dL (610-1616); IgM <12 mg/dL (35-242); Kappa Free Light Chain 0.52 mg/dL (0.33-1.94); Lambda Free Light Chain <0.44 mg/dL (0.57-2.63)
[2023-05-14 12:39] LABS: Albumin 69.3 % (55.8-66.1); Comment (See Note); Total Protein 5.8 g/dL (6.3-8.2)
== END 2023-05-13 23:59 | disposition home or self-care (01) ==
LOC: INF 03:22
PROVIDERS: Nurse Practitioner Adult Health; PCP Family Medicine; Visit Provider Internal Medicine Hematology & Oncology
DX: C90.00 Multiple myeloma not having achieved remission (principal); Z45.2 Encounter for adjustment and management of vascular access device
CPT/HCPCS: 36591; 80053; 82784; 83883; 84165; 85025

== ENCOUNTER 2023-06-10 02:41 | Outpatient (RCR) | payer BC, SELFPAY ==
[2023-06-10] MEDS: Normal Saline Flush 10 ML SYR IVP (08:30)
[2023-06-10 08:52] LABS: Abs Immature Grans 0.01 10^3/uL (0.0-0.06); Absolute Basophil Count 0.06 10^3/uL (0.0-0.2); Absolute Eosinophil Count 0.05 10^3/uL (0.0-0.7); Absolute Lymphocyte Count 1.09 10^3/uL (1.2-3.4); Absolute Monocyte Count 0.55 10^3/uL (0.1-0.8); Basophils % 1.4; Eosinophils % 1.1; HCT 40.6 % (40.0-50.0); HGB 13.9 g/dL (13.5-17.5); Immature Grans % 0.2; MCH 31.4 pg (27.0-33.0); MCHC 34.2 % (32.0-36.0); MCV 92 fL (80-95); MPV 9.7 fL (8.0-11.0); Monocytes % 12.6; Neutrophils % 59.7; Platelet Count 189 10^3/uL (130-400); RBC 4.43 10^6/uL (4.36-5.78); RDW 13.3 % (11.8-14.1); RDW-SD 45.1 fL; WBC 4.36 10^3/uL (4.4-10.8)
[2023-06-10 09:19] LABS: Albumin 3.6 g/dL (3.4-5.0); BUN 15 mg/dL (7-18); Chloride 107 mmol/L (98-107); Potassium 3.8 mmol/L (3.5-5.1); Sodium 144 mmol/L (136-145); Total Protein 6.2 g/dL (6.4-8.2)
[2023-06-10 09:23] LABS: ALT 22 U/L (16-63); AST 16 U/L (15-37); Alkaline Phosphatase 95 U/L (46-116); Anion Gap 9.6 mmol/L (3-11); Bilirubin, Total 0.7 mg/dL (0.2-1.0); CO2 27.4 mmol/L (21.0-32.0); CREATININE 0.9 mg/dL (0.70-1.30); Calcium 9.3 mg/dL (8.5-10.1); Estimated GFR 96.57 (mL/min/1.73m2); Glucose 117 mg/dL (74-106); TSH (W/Ref FT4) 0.87 uIU/mL (0.36-3.74)
[2023-06-10 18:25] LABS: PSA, Screening 1.1 ng/mL (<=4.5)
[2023-06-11 09:57] LABS: IgA <13 mg/dL (85-499); IgG 264 mg/dL (610-1616); IgM <12 mg/dL (35-242); Kappa Free Light Chain 0.66 mg/dL (0.33-1.94); Lambda Free Light Chain <0.44 mg/dL (0.57-2.63)
[2023-06-11 14:02] LABS: Albumin 68.1 % (55.8-66.1); Albumin g/dL 3.9 g/dL (3.6-5.2); Comment (See Note); Total Protein 5.8 g/dL (6.3-8.2)
== END 2023-06-11 23:59 | disposition home or self-care (01) ==
LOC: INF 02:41
PROVIDERS: Nurse Practitioner Adult Health; PCP Family Medicine; Visit Provider Internal Medicine Hematology & Oncology
DX: C90.00 Multiple myeloma not having achieved remission (principal)
CPT/HCPCS: 36591; 80053; 82784; 84153; 83883; 84165; 84443; 85025

== ENCOUNTER 2023-07-08 04:33 | Outpatient (RCR) | payer BC, SELFPAY ==
[2023-07-08] MEDS: Normal Saline Flush 10 ML SYR IVP (08:50)
[2023-07-08 09:55] LABS: Abs Immature Grans 0.01 10^3/uL (0.0-0.06); Absolute Basophil Count 0.06 10^3/uL (0.0-0.2); Absolute Eosinophil Count 0.04 10^3/uL (0.0-0.7); Absolute Lymphocyte Count 0.87 10^3/uL (1.2-3.4); Absolute Monocyte Count 0.65 10^3/uL (0.1-0.8); Absolute Neutrophil Count 2.81 10^3/uL (1.2-6.7); Basophils % 1.4; Eosinophils % 0.9; HCT 42.5 % (40.0-50.0); HGB 14.4 g/dL (13.5-17.5); Immature Grans % 0.2; Lymphocytes % 19.6; MCH 31.6 pg (27.0-33.0); MCHC 33.9 % (32.0-36.0); MCV 93 fL (80-95); MPV 9.8 fL (8.0-11.0); Monocytes % 14.6; Neutrophils % 63.3; Platelet Count 176 10^3/uL (130-400); RBC 4.56 10^6/uL (4.36-5.78); RDW 13.2 % (11.8-14.1); RDW-SD 45.1 fL; WBC 4.44 10^3/uL (4.4-10.8)
[2023-07-08 10:07] LABS: ALT 28 U/L (16-63); AST 15 U/L (15-37); Albumin 3.7 g/dL (3.4-5.0); Alkaline Phosphatase 100 U/L (46-116); Anion Gap 8.4 mmol/L (3-11); BUN 15 mg/dL (7-18); Bilirubin, Total 0.6 mg/dL (0.2-1.0); CO2 26.6 mmol/L (21.0-32.0); CREATININE 0.8 mg/dL (0.70-1.30); Calcium 9.2 mg/dL (8.5-10.1); Chloride 108 mmol/L (98-107); Estimated GFR 100.06 (mL/min/1.73m2); Glucose 131 mg/dL (74-106); Potassium 3.7 mmol/L (3.5-5.1); Sodium 143 mmol/L (136-145); Total Protein 6.2 g/dL (6.4-8.2)
[2023-07-09 12:52] LABS: Albumin 69.4 % (55.8-66.1); Albumin g/dL 4.1 g/dL (3.6-5.2); Comment (See Note); Total Protein 5.9 g/dL (6.3-8.2)
[2023-07-10 14:22] LABS: IgA <13 mg/dL (85-499); IgG 294 mg/dL (610-1616); IgM <12 mg/dL (35-242); Kappa Free Light Chain 0.39 mg/dL (0.33-1.94); Lambda Free Light Chain <0.44 mg/dL (0.57-2.63)
== END 2023-07-12 23:59 | disposition home or self-care (01) ==
LOC: INF 04:33
PROVIDERS: Nurse Practitioner Adult Health; PCP Family Medicine; Visit Provider Internal Medicine Hematology & Oncology
DX: C90.00 Multiple myeloma not having achieved remission (principal); Z45.2 Encounter for adjustment and management of vascular access device
CPT/HCPCS: 36591; 80053; 82784; 83883; 84165; 85025

== ENCOUNTER 2023-09-02 04:57 | Outpatient (RCR) | payer BC, SELFPAY ==
[2023-09-02] MEDS: Normal Saline Flush 10 ML SYR IVP (09:25)
[2023-09-02 09:32] LABS: Abs Immature Grans 0.01 10^3/uL (0.0-0.06); Absolute Basophil Count 0.05 10^3/uL (0.0-0.2); Absolute Eosinophil Count 0.04 10^3/uL (0.0-0.7); Absolute Lymphocyte Count 0.77 10^3/uL (1.2-3.4); Absolute Monocyte Count 0.69 10^3/uL (0.1-0.8); Absolute Neutrophil Count 4.13 10^3/uL (1.2-6.7); Basophils % 0.9 %; Eosinophils % 0.7 %; HGB 14.4 g/dL (13.5-17.5); Immature Grans % 0.2 %; Lymphocytes % 13.5 %; MCH 32.6 pg (27.0-33.0); MCHC 35.1 % (32.0-36.0); MCV 93 fL (80-95); MPV 9.9 fL (8.0-11.0); Monocytes % 12.1 %; Neutrophils % 72.6 %; Platelet Count 180 10^3/uL (130-400); RBC 4.42 10^6/uL (4.36-5.78); RDW 12.7 % (11.8-14.1); RDW-SD 43.3 fL; WBC 5.69 10^3/uL (4.4-10.8)
[2023-09-02 09:50] LABS: ALT 27 U/L (16-63); AST 17 U/L (15-37); Albumin 3.8 g/dL (3.4-5.0); Alkaline Phosphatase 95 U/L (46-116); Anion Gap 6.3 mmol/L (3-11); BUN 13 mg/dL (7-18); Bilirubin, Total 0.8 mg/dL (0.2-1.0); CO2 28.7 mmol/L (21.0-32.0); CREATININE 0.9 mg/dL (0.70-1.30); Calcium 9.2 mg/dL (8.5-10.1); Chloride 106 mmol/L (98-107); Estimated GFR 96.57 (mL/min/1.73m2); Glucose 96 mg/dL (74-106); Sodium 141 mmol/L (136-145); Total Protein 6.3 g/dL (6.4-8.2)
[2023-09-03 09:34] LABS: IgA <13 mg/dL (85-499); IgG 284 mg/dL (610-1616); IgM <12 mg/dL (35-242); Kappa Free Light Chain 0.45 mg/dL (0.33-1.94); Lambda Free Light Chain <0.44 mg/dL (0.57-2.63)
[2023-09-03 14:00] LABS: Albumin 69.6 % (55.8-66.1); Albumin g/dL 4.1 g/dL (3.6-5.2); Comment (See Note); Total Protein 5.9 g/dL (6.3-8.2)
== END 2023-09-11 23:59 | disposition home or self-care (01) ==
LOC: INF 04:57
PROVIDERS: PCP Family Medicine; Visit Provider Internal Medicine Hematology & Oncology
DX: C90.00 Multiple myeloma not having achieved remission (principal); Z45.2 Encounter for adjustment and management of vascular access device
CPT/HCPCS: 36591; 80053; 82784; 83883; 84165; 85025

== ENCOUNTER 2023-09-30 04:41 | Outpatient (RCR) | payer BC, SELFPAY ==
[2023-09-30 09:48] LABS: Abs Immature Grans 0.02 10^3/uL (0.0-0.06); Absolute Basophil Count 0.04 10^3/uL (0.0-0.2); Absolute Eosinophil Count 0.03 10^3/uL (0.0-0.7); Absolute Lymphocyte Count 0.96 10^3/uL (1.2-3.4); Absolute Monocyte Count 0.56 10^3/uL (0.1-0.8); Absolute Neutrophil Count 3.01 10^3/uL (1.2-6.7); Basophils % 0.9 %; Eosinophils % 0.6 %; HCT 41.7 % (40.0-50.0); HGB 14.2 g/dL (13.5-17.5); Immature Grans % 0.4 %; Lymphocytes % 20.8 %; MCH 31.8 pg (27.0-33.0); MCHC 34.1 % (32.0-36.0); MCV 94 fL (80-95); MPV 9.7 fL (8.0-11.0); Monocytes % 12.1 %; Neutrophils % 65.2 %; Platelet Count 183 10^3/uL (130-400); RBC 4.46 10^6/uL (4.36-5.78); RDW 12.3 % (11.8-14.1); RDW-SD 42.3 fL; WBC 4.62 10^3/uL (4.4-10.8)
[2023-09-30] MEDS: Normal Saline Flush 10 ML SYR IVP (10:10)
[2023-09-30 10:14] LABS: ALT 28 U/L (16-63); AST 16 U/L (15-37); Albumin 3.7 g/dL (3.4-5.0); Alkaline Phosphatase 90 U/L (46-116); Anion Gap 8.3 mmol/L (3-11); BUN 12 mg/dL (7-18); Bilirubin, Total 0.8 mg/dL (0.2-1.0); CO2 28.7 mmol/L (21.0-32.0); CREATININE 0.9 mg/dL (0.70-1.30); Calcium 9.3 mg/dL (8.5-10.1); Chloride 106 mmol/L (98-107); Estimated GFR 96.57 (mL/min/1.73m2); Glucose 128 mg/dL (74-106); Potassium 3.7 mmol/L (3.5-5.1); Sodium 143 mmol/L (136-145); Total Protein 6.4 g/dL (6.4-8.2)
[2023-10-01 11:20] LABS: IgA <13 mg/dL (85-499); IgG 253 mg/dL (610-1616); IgM <12 mg/dL (35-242); Kappa Free Light Chain 0.34 mg/dL (0.33-1.94); Lambda Free Light Chain <0.44 mg/dL (0.57-2.63)
[2023-10-01 13:39] LABS: Albumin 68.8 % (55.8-66.1); Comment (See Note); Total Protein 5.8 g/dL (6.3-8.2)
== END 2023-10-11 23:59 | disposition home or self-care (01) ==
LOC: INF 04:41
PROVIDERS: Nurse Practitioner Adult Health; PCP Family Medicine; Visit Provider Internal Medicine Hematology & Oncology
DX: C90.00 Multiple myeloma not having achieved remission (principal); Z45.2 Encounter for adjustment and management of vascular access device
CPT/HCPCS: 36591; 80053; 82784; 83883; 84165; 85025

== ENCOUNTER 2023-10-28 02:39 | Outpatient (RCR) | payer BC, SELFPAY ==
[2023-10-28 10:29] LABS: Abs Immature Grans 0.02 10^3/uL (0.0-0.06); Absolute Basophil Count 0.05 10^3/uL (0.0-0.2); Absolute Eosinophil Count 0.03 10^3/uL (0.0-0.7); Absolute Monocyte Count 0.66 10^3/uL (0.1-0.8); Absolute Neutrophil Count 2.16 10^3/uL (1.2-6.7); Basophils % 1.3 %; Eosinophils % 0.8 %; HCT 40.1 % (40.0-50.0); HGB 13.8 g/dL (13.5-17.5); Immature Grans % 0.5 %; Lymphocytes % 23.6 %; MCH 31.6 pg (27.0-33.0); MCHC 34.4 % (32.0-36.0); MCV 92 fL (80-95); MPV 9.6 fL (8.0-11.0); Monocytes % 17.3 %; Neutrophils % 56.5 %; Platelet Count 177 10^3/uL (130-400); RBC 4.37 10^6/uL (4.36-5.78); RDW 12.5 % (11.8-14.1); RDW-SD 42.4 fL; WBC 3.82 10^3/uL (4.4-10.8)
[2023-10-28] MEDS: Normal Saline Flush 10 ML SYR IVP (10:42)
[2023-10-28 10:53] LABS: ALT 23 U/L (16-63); AST 15 U/L (15-37); Albumin 3.6 g/dL (3.4-5.0); Alkaline Phosphatase 99 U/L (46-116); Anion Gap 4.6 mmol/L (3-11); BUN 15 mg/dL (7-18); Bilirubin, Total 0.66 mg/dL (0.2-1.0); CO2 29.4 mmol/L (21.0-32.0); CREATININE 0.8 mg/dL (0.70-1.30); Calcium 9.6 mg/dL (8.5-10.1); Chloride 108 mmol/L (98-107); Estimated GFR 100.06 (mL/min/1.73m2); Glucose 88 mg/dL (74-106); Potassium 3.7 mmol/L (3.5-5.1); Sodium 142 mmol/L (136-145); Total Protein 6.6 g/dL (6.4-8.2)
[2023-10-28 13:50] LABS: TSH 0.73 uIU/Ml (0.36-3.74)
[2023-10-29 10:38] LABS: IgA <13 mg/dL (85-499); IgG 537 mg/dL (610-1616); IgM <12 mg/dL (35-242); Kappa Free Light Chain 0.33 mg/dL (0.33-1.94); Lambda Free Light Chain <0.44 mg/dL (0.57-2.63)
[2023-10-30 15:39] LABS: Albumin 64.9 % (55.8-66.1); Albumin g/dL 3.9 g/dL (3.6-5.2); Comment (See Note)
[2023-12-21 13:45] LABS: Immunotyping, Serum (See Note)
== END 2023-11-11 23:59 | disposition home or self-care (01) ==
LOC: INF 02:39
PROVIDERS: Nurse Practitioner Adult Health; PCP Family Medicine; Visit Provider Internal Medicine Hematology & Oncology
DX: C90.00 Multiple myeloma not having achieved remission (principal); Z94.81 Bone marrow transplant status
CPT/HCPCS: 36591; 80053; 82784; 83883; 84165; 84443; 85025; 86320

== ENCOUNTER 2023-11-25 02:37 | Outpatient (RCR) | payer BC, SELFPAY ==
[2023-11-25] MEDS: Normal Saline Flush 10 ML SYR IVP (09:29)
[2023-11-25 09:33] LABS: Abs Immature Grans 0.02 10^3/uL (0.0-0.06); Absolute Basophil Count 0.04 10^3/uL (0.0-0.2); Absolute Eosinophil Count 0.05 10^3/uL (0.0-0.7); Absolute Lymphocyte Count 0.84 10^3/uL (1.2-3.4); Absolute Monocyte Count 0.67 10^3/uL (0.1-0.8); Absolute Neutrophil Count 2.66 10^3/uL (1.2-6.7); Basophils % 0.9 %; Eosinophils % 1.2 %; HCT 41.2 % (40.0-50.0); HGB 14.1 g/dL (13.5-17.5); Immature Grans % 0.5 %; Lymphocytes % 19.6 %; MCHC 34.2 % (32.0-36.0); MCV 94 fL (80-95); MPV 9.8 fL (8.0-11.0); Monocytes % 15.7 %; Neutrophils % 62.1 %; Platelet Count 188 10^3/uL (130-400); RDW 12.5 % (11.8-14.1); RDW-SD 43.4 fL; WBC 4.28 10^3/uL (4.4-10.8)
[2023-11-25 09:54] LABS: ALT 19 U/L (16-63); AST 14 U/L (15-37); Albumin 3.5 g/dL (3.4-5.0); Alkaline Phosphatase 97 U/L (46-116); Anion Gap 8.9 mmol/L (3-11); BUN 13 mg/dL (7-18); Bilirubin, Total 0.59 mg/dL (0.2-1.0); CO2 28.1 mmol/L (21.0-32.0); CREATININE 0.9 mg/dL (0.70-1.30); Calcium 9.6 mg/dL (8.5-10.1); Chloride 106 mmol/L (98-107); Estimated GFR 96.57 (mL/min/1.73m2); Glucose 93 mg/dL (74-106); Potassium 3.7 mmol/L (3.5-5.1); Sodium 143 mmol/L (136-145); Total Protein 6.7 g/dL (6.4-8.2)
[2023-11-25 18:09] LABS: PSA, Screening 1.4 ng/mL (<=4.5)
[2023-11-26 10:12] LABS: IgA <13 mg/dL (85-499); IgG 419 mg/dL (610-1616); IgM <12 mg/dL (35-242); Kappa Free Light Chain 0.41 mg/dL (0.33-1.94); Lambda Free Light Chain <0.44 mg/dL (0.57-2.63)
[2023-11-26 15:11] LABS: Albumin 62.7 % (55.8-66.1); Albumin g/dL 3.8 g/dL (3.6-5.2); Comment (See Note); Total Protein 6.1 g/dL (6.3-8.2)
== END 2023-12-12 23:59 | disposition home or self-care (01) ==
LOC: INF 02:37
PROVIDERS: PCP Family Medicine; Visit Provider Internal Medicine Hematology & Oncology
DX: C90.00 Multiple myeloma not having achieved remission (principal); Z45.2 Encounter for adjustment and management of vascular access device
CPT/HCPCS: 36591; 80053; 82784; 84153; 83883; 84165; 85025

== ENCOUNTER 2024-01-06 02:11 | Outpatient (RCR) | payer BC, SELFPAY ==
[2023-12-23] MEDS: Normal Saline Flush 10 ML SYR IVP (08:50)
[2023-12-23 09:41] LABS: Abs Immature Grans 0.02 10^3/uL (0.0-0.06); Absolute Basophil Count 0.07 10^3/uL (0.0-0.2); Absolute Eosinophil Count 0.04 10^3/uL (0.0-0.7); Absolute Lymphocyte Count 1.05 10^3/uL (1.2-3.4); Absolute Monocyte Count 0.52 10^3/uL (0.1-0.8); Absolute Neutrophil Count 3.02 10^3/uL (1.2-6.7); Basophils % 1.5 %; Eosinophils % 0.8 %; HGB 13.5 g/dL (13.5-17.5); Immature Grans % 0.4 %; Lymphocytes % 22.2 %; MCH 30.8 pg (27.0-33.0); MCHC 32.9 % (32.0-36.0); MCV 93 fL (80-95); MPV 9.3 fL (8.0-11.0); Neutrophils % 64.1 %; Platelet Count 272 10^3/uL (130-400); RBC 4.39 10^6/uL (4.36-5.78); RDW-SD 44.3 fL; WBC 4.72 10^3/uL (4.4-10.8)
[2023-12-23 09:59] LABS: ALT 24 U/L (16-63); AST 18 U/L (15-37); Albumin 3.1 g/dL (3.4-5.0); Alkaline Phosphatase 112 U/L (46-116); Anion Gap 9.5 mmol/L (3-11); BUN 13 mg/dL (7-18); Bilirubin, Total 0.45 mg/dL (0.2-1.0); CO2 26.5 mmol/L (21.0-32.0); Calcium 9.6 mg/dL (8.5-10.1); Chloride 106 mmol/L (98-107); Glucose 131 mg/dL (74-106); Potassium 3.7 mmol/L (3.5-5.1); Sodium 142 mmol/L (136-145); Total Protein 6.5 g/dL (6.4-8.2)
[2023-12-24 10:52] LABS: IgA <13 mg/dL (85-499); IgG 605 mg/dL (610-1616); IgM 12 mg/dL (35-242); Kappa Free Light Chain 0.36 mg/dL (0.33-1.94); Lambda Free Light Chain <0.44 mg/dL (0.57-2.63)
[2023-12-24 13:50] LABS: Albumin 59.2 % (55.8-66.1); Albumin g/dL 3.6 g/dL (3.6-5.2)
[2023-12-24 14:09] LABS: Comment (See Note)
[2024-01-06] MEDS: Normal Saline Flush 10 ML SYR IVP (08:27)
[2024-01-06 09:03] LABS: Abs Immature Grans 0.02 10^3/uL (0.0-0.06); Absolute Basophil Count 0.05 10^3/uL (0.0-0.2); Absolute Lymphocyte Count 0.83 10^3/uL (1.2-3.4); Absolute Monocyte Count 0.89 10^3/uL (0.1-0.8); Basophils % 1.1 %; Eosinophils % 2.3 %; HCT 39.4 % (40.0-50.0); HGB 13.3 g/dL (13.5-17.5); Immature Grans % 0.5 %; Lymphocytes % 18.9 %; MCH 30.9 pg (27.0-33.0); MCHC 33.8 % (32.0-36.0); MCV 92 fL (80-95); MPV 10.4 fL (8.0-11.0); Monocytes % 20.3 %; Neutrophils % 56.9 %; Platelet Count 148 10^3/uL (130-400); RDW 13.9 % (11.8-14.1); RDW-SD 46.7 fL; WBC 4.39 10^3/uL (4.4-10.8)
[2024-01-06 09:19] LABS: ALT 30 U/L (16-63); AST 23 U/L (15-37); Albumin 3.5 g/dL (3.4-5.0); Alkaline Phosphatase 101 U/L (46-116); Anion Gap 6.9 mmol/L (3-11); BUN 13 mg/dL (7-18); Bilirubin, Total 0.86 mg/dL (0.2-1.0); CO2 27.1 mmol/L (21.0-32.0); CREATININE 0.8 mg/dL (0.70-1.30); Calcium 9.1 mg/dL (8.5-10.1); Chloride 106 mmol/L (98-107); Estimated GFR 99.44 (mL/min/1.73m2); Glucose 98 mg/dL (74-106); Potassium 3.7 mmol/L (3.5-5.1); Sodium 140 mmol/L (136-145); Total Protein 6.5 g/dL (6.4-8.2)
== END 2024-01-11 23:59 | disposition home or self-care (01) ==
LOC: INF 02:11
PROVIDERS: Nurse Practitioner Adult Health; PCP Family Medicine; Visit Provider Internal Medicine Hematology & Oncology
DX: C90.00 Multiple myeloma not having achieved remission (principal); Z45.2 Encounter for adjustment and management of vascular access device
CPT/HCPCS: 36591; 80053; 82784; 96523; 83883; 84165; 85025

== ENCOUNTER 2024-02-03 03:16 | Outpatient (RCR) | payer BC, SELFPAY ==
[2024-02-03] MEDS: Normal Saline Flush 10 ML SYR IVP (07:33)
[2024-02-03 08:21] LABS: Abs Immature Grans 0.01 10^3/uL (0.0-0.06); Absolute Basophil Count 0.03 10^3/uL (0.0-0.2); Absolute Eosinophil Count 0.07 10^3/uL (0.0-0.7); Absolute Lymphocyte Count 1.14 10^3/uL (1.2-3.4); Absolute Monocyte Count 0.48 10^3/uL (0.1-0.8); Absolute Neutrophil Count 3.48 10^3/uL (1.2-6.7); Basophils % 0.6 %; Eosinophils % 1.3 %; HCT 42.2 % (40.0-50.0); HGB 14.3 g/dL (13.5-17.5); Immature Grans % 0.2 %; Lymphocytes % 21.9 %; MCH 30.8 pg (27.0-33.0); MCHC 33.9 % (32.0-36.0); MCV 91 fL (80-95); Monocytes % 9.2 %; Neutrophils % 66.8 %; Platelet Count 182 10^3/uL (130-400); RBC 4.64 10^6/uL (4.36-5.78); RDW 13.7 % (11.8-14.1); WBC 5.21 10^3/uL (4.4-10.8)
[2024-02-03 08:39] LABS: ALT 20 U/L (16-63); AST 15 U/L (15-37); Albumin 3.5 g/dL (3.4-5.0); Alkaline Phosphatase 101 U/L (46-116); Anion Gap 8.6 mmol/L (3-11); BUN 15 mg/dL (7-18); CO2 27.4 mmol/L (21.0-32.0); Calcium 9.4 mg/dL (8.5-10.1); Chloride 110 mmol/L (98-107); Estimated GFR 84.57 (mL/min/1.73m2); Glucose 86 mg/dL (74-106); Potassium 3.8 mmol/L (3.5-5.1); Sodium 146 mmol/L (136-145); Total Protein 6.6 g/dL (6.4-8.2)
[2024-02-04 09:11] LABS: IgA <13 mg/dL (85-499); IgG 592 mg/dL (610-1616); IgM <12 mg/dL (35-242); Kappa Free Light Chain <0.19 mg/dL (0.33-1.94); Lambda Free Light Chain <0.44 mg/dL (0.57-2.63)
[2024-02-04 13:02] LABS: Albumin 65.9 % (55.8-66.1); Albumin g/dL 4.1 g/dL (3.6-5.2); Comment (See Note); Total Protein 6.2 g/dL (6.3-8.2)
[2024-02-04 15:20] LABS: Immunotyping, Serum (See Note)
[2024-02-08 12:15] LABS: Testosterone, Total 577 ng/dL (240-950)
== END 2024-02-11 23:59 | disposition home or self-care (01) ==
LOC: INF 03:16
PROVIDERS: Nurse Practitioner Adult Health; PCP Family Medicine; Visit Provider Internal Medicine Hematology & Oncology
DX: C90.00 Multiple myeloma not having achieved remission (principal); Z45.2 Encounter for adjustment and management of vascular access device
CPT/HCPCS: 36591; 80053; 82784; 84403; 83883; 84165; 85025; 86320

== ENCOUNTER 2024-03-02 02:10 | Outpatient (RCR) | payer BC, SELFPAY ==
[2024-03-02] MEDS: Normal Saline Flush 10 ML SYR IVP (09:20)
[2024-03-02 09:53] LABS: Abs Immature Grans 0.02 10^3/uL (0.0-0.06); Absolute Basophil Count 0.09 10^3/uL (0.0-0.2); Absolute Eosinophil Count 0.02 10^3/uL (0.0-0.7); Absolute Lymphocyte Count 0.88 10^3/uL (1.2-3.4); Absolute Monocyte Count 0.71 10^3/uL (0.1-0.8); Absolute Neutrophil Count 2.56 10^3/uL (1.2-6.7); Basophils % 2.1 %; Eosinophils % 0.5 %; HCT 43.6 % (40.0-50.0); HGB 14.7 g/dL (13.5-17.5); Immature Grans % 0.5 %; Lymphocytes % 20.6 %; MCH 30.6 pg (27.0-33.0); MCHC 33.7 % (32.0-36.0); MCV 91 fL (80-95); MPV 9.6 fL (8.0-11.0); Monocytes % 16.6 %; Neutrophils % 59.7 %; Platelet Count 169 10^3/uL (130-400); RBC 4.81 10^6/uL (4.36-5.78); RDW 13.2 % (11.8-14.1); RDW-SD 44.7 fL; WBC 4.28 10^3/uL (4.4-10.8)
[2024-03-02 10:13] LABS: ALT 20 U/L (16-63); AST 14 U/L (15-37); Albumin 3.5 g/dL (3.4-5.0); Alkaline Phosphatase 114 U/L (46-116); Anion Gap 8.9 mmol/L (3-11); BUN 18 mg/dL (7-18); Bilirubin, Total 0.44 mg/dL (0.2-1.0); CO2 25.1 mmol/L (21.0-32.0); Calcium 9.3 mg/dL (8.5-10.1); Chloride 107 mmol/L (98-107); Estimated GFR 84.57 (mL/min/1.73m2); Glucose 119 mg/dL (74-106); Sodium 141 mmol/L (136-145); Total Protein 6.8 g/dL (6.4-8.2)
[2024-03-03 10:20] LABS: IgA <13 mg/dL (85-499); IgG 606 mg/dL (610-1616); IgM <12 mg/dL (35-242); Kappa Free Light Chain 0.35 mg/dL (0.33-1.94); Lambda Free Light Chain <0.44 mg/dL (0.57-2.63)
[2024-03-03 13:07] LABS: Albumin 63.6 % (55.8-66.1); Albumin g/dL 4.1 g/dL (3.6-5.2); Total Protein 6.4 g/dL (6.3-8.2)
== END 2024-03-12 23:59 | disposition home or self-care (01) ==
LOC: INF 02:10
PROVIDERS: Nurse Practitioner Adult Health; PCP Family Medicine; Visit Provider Internal Medicine Hematology & Oncology
DX: C90.00 Multiple myeloma not having achieved remission (principal); Z45.2 Encounter for adjustment and management of vascular access device
CPT/HCPCS: 36591; 80053; 82784; 83883; 84165; 85025

== ENCOUNTER 2024-03-30 04:03 | Outpatient (RCR) | payer BC, SELFPAY ==
[2024-03-30] MEDS: Normal Saline Flush 10 ML SYR IVP (09:25)
[2024-03-30 09:50] LABS: Abs Immature Grans 0.02 10^3/uL (0.0-0.06); Absolute Basophil Count 0.06 10^3/uL (0.0-0.2); Absolute Eosinophil Count 0.06 10^3/uL (0.0-0.7); Absolute Lymphocyte Count 0.92 10^3/uL (1.2-3.4); Absolute Monocyte Count 0.68 10^3/uL (0.1-0.8); Absolute Neutrophil Count 1.98 10^3/uL (1.2-6.7); Basophils % 1.6 %; Eosinophils % 1.6 %; HCT 40.9 % (40.0-50.0); HGB 13.9 g/dL (13.5-17.5); Immature Grans % 0.5 %; Lymphocytes % 24.7 %; MCH 30.7 pg (27.0-33.0); MCV 90 fL (80-95); MPV 9.8 fL (8.0-11.0); Monocytes % 18.3 %; Neutrophils % 53.3 %; Platelet Count 155 10^3/uL (130-400); RBC 4.53 10^6/uL (4.36-5.78); RDW 13.2 % (11.8-14.1); RDW-SD 43.8 fL; WBC 3.72 10^3/uL (4.4-10.8)
[2024-03-30 10:12] LABS: ALT 22 U/L (16-63); AST 17 U/L (15-37); Albumin 3.4 g/dL (3.4-5.0); Alkaline Phosphatase 103 U/L (46-116); Anion Gap 10.1 mmol/L (3-11); BUN 12 mg/dL (7-18); Bilirubin, Total 0.63 mg/dL (0.2-1.0); CO2 25.9 mmol/L (21.0-32.0); Calcium 9.1 mg/dL (8.5-10.1); Chloride 109 mmol/L (98-107); Estimated GFR 84.57 (mL/min/1.73m2); Glucose 128 mg/dL (74-106); Potassium 3.9 mmol/L (3.5-5.1); Sodium 145 mmol/L (136-145); Total Protein 6.4 g/dL (6.4-8.2)
[2024-03-31 10:42] LABS: IgA <13 mg/dL (85-499); IgG 595 mg/dL (610-1616); IgM <12 mg/dL (35-242); Lambda Free Light Chain <0.44 mg/dL (0.57-2.63)
[2024-03-31 13:25] LABS: Albumin 64.7 % (55.8-66.1); Albumin g/dL 3.8 g/dL (3.6-5.2); Total Protein 5.9 g/dL (6.3-8.2)
== END 2024-04-12 23:59 | disposition home or self-care (01) ==
LOC: INF 04:03
PROVIDERS: Nurse Practitioner Adult Health; PCP Family Medicine; Visit Provider Internal Medicine Hematology & Oncology
DX: C90.00 Multiple myeloma not having achieved remission (principal); Z45.2 Encounter for adjustment and management of vascular access device
CPT/HCPCS: 36591; 80053; 82784; 83883; 84165; 85025

== ENCOUNTER 2024-04-27 02:46 | Outpatient (RCR) | payer BC, SELFPAY ==
[2024-04-27] MEDS: Normal Saline Flush 10 ML SYR IVP (08:33)
[2024-04-27 08:44] LABS: Abs Immature Grans 0.01 10^3/uL (0.0-0.06); Absolute Basophil Count 0.06 10^3/uL (0.0-0.2); Absolute Eosinophil Count 0.05 10^3/uL (0.0-0.7); Absolute Lymphocyte Count 1.02 10^3/uL (1.2-3.4); Absolute Monocyte Count 0.62 10^3/uL (0.1-0.8); Absolute Neutrophil Count 1.92 10^3/uL (1.2-6.7); Basophils % 1.6 %; Eosinophils % 1.4 %; HCT 40.2 % (40.0-50.0); HGB 13.8 g/dL (13.5-17.5); Immature Grans % 0.3 %; Lymphocytes % 27.7 %; MCH 30.9 pg (27.0-33.0); MCHC 34.3 % (32.0-36.0); MCV 90 fL (80-95); MPV 9.8 fL (8.0-11.0); Monocytes % 16.8 %; Neutrophils % 52.2 %; Platelet Count 166 10^3/uL (130-400); RBC 4.46 10^6/uL (4.36-5.78); RDW 12.9 % (11.8-14.1); RDW-SD 42.3 fL; WBC 3.68 10^3/uL (4.4-10.8)
[2024-04-27 09:01] LABS: ALT 24 U/L (16-63); AST 18 U/L (15-37); Albumin 3.4 g/dL (3.4-5.0); Alkaline Phosphatase 104 U/L (46-116); Anion Gap 4.9 mmol/L (3-11); BUN 12 mg/dL (7-18); Bilirubin, Total 0.59 mg/dL (0.2-1.0); CO2 28.1 mmol/L (21.0-32.0); Calcium 9.3 mg/dL (8.5-10.1); Chloride 109 mmol/L (98-107); Estimated GFR 84.57 (mL/min/1.73m2); Glucose 126 mg/dL (74-106); Sodium 142 mmol/L (136-145); Total Protein 6.5 g/dL (6.4-8.2)
[2024-04-28 09:27] LABS: IgA <13 mg/dL (85-499); IgG 610 mg/dL (610-1616); IgM <12 mg/dL (35-242); Kappa Free Light Chain 0.41 mg/dL (0.33-1.94); Lambda Free Light Chain <0.44 mg/dL (0.57-2.63)
[2024-04-28 15:48] LABS: Albumin 64.1 % (55.8-66.1); Albumin g/dL 3.8 g/dL (3.6-5.2)
== END 2024-05-13 23:59 | disposition home or self-care (01) ==
LOC: INF 02:46
PROVIDERS: Nurse Practitioner Adult Health; PCP Family Medicine; Visit Provider Internal Medicine Hematology & Oncology
DX: C90.00 Multiple myeloma not having achieved remission (principal)
CPT/HCPCS: 36591; 80053; 82784; 83883; 84165; 85025

== ENCOUNTER 2024-05-25 03:57 | Outpatient (RCR) | payer BC, SELFPAY ==
[2024-05-25 08:52] LABS: Abs Immature Grans 0.02 10^3/uL (0.0-0.06); Absolute Basophil Count 0.11 10^3/uL (0.0-0.2); Absolute Eosinophil Count 0.05 10^3/uL (0.0-0.7); Absolute Lymphocyte Count 1.65 10^3/uL (1.2-3.4); Absolute Monocyte Count 0.67 10^3/uL (0.1-0.8); Absolute Neutrophil Count 2.27 10^3/uL (1.2-6.7); Basophils % 2.3 %; HGB 14.5 g/dL (13.5-17.5); Immature Grans % 0.4 %; Lymphocytes % 34.6 %; MCH 30.2 pg (27.0-33.0); MCHC 34.5 % (32.0-36.0); MCV 88 fL (80-95); MPV 9.6 fL (8.0-11.0); Neutrophils % 47.7 %; Platelet Count 191 10^3/uL (130-400); RDW 12.8 % (11.8-14.1); RDW-SD 40.8 fL; WBC 4.77 10^3/uL (4.4-10.8)
[2024-05-25] MEDS: Normal Saline Flush 10 ML SYR IVP (08:59)
[2024-05-25 09:07] LABS: ALT 21 U/L (16-63); AST 13 U/L (15-37); Albumin 3.2 g/dL (3.4-5.0); Alkaline Phosphatase 102 U/L (46-116); Anion Gap 5.3 mmol/L (3-11); BUN 12 mg/dL (7-18); Bilirubin, Total 0.53 mg/dL (0.2-1.0); CO2 28.7 mmol/L (21.0-32.0); Calcium 9.6 mg/dL (8.5-10.1); Chloride 106 mmol/L (98-107); Estimated GFR 84.57 (mL/min/1.73m2); Glucose 131 mg/dL (74-106); Potassium 3.8 mmol/L (3.5-5.1); Sodium 140 mmol/L (136-145); Total Protein 6.6 g/dL (6.4-8.2)
[2024-05-26 10:45] LABS: IgA <13 mg/dL (85-499); IgG 635 mg/dL (610-1616); IgM <12 mg/dL (35-242); Kappa Free Light Chain 0.42 mg/dL (0.33-1.94); Lambda Free Light Chain <0.44 mg/dL (0.57-2.63)
[2024-05-26 12:53] LABS: Albumin 59.8 % (55.8-66.1); Albumin g/dL 3.7 g/dL (3.6-5.2); Total Protein 6.2 g/dL (6.3-8.2)
== END 2024-06-10 23:59 | disposition home or self-care (01) ==
LOC: INF 03:57
PROVIDERS: Nurse Practitioner Adult Health; PCP Family Medicine; Visit Provider Internal Medicine Hematology & Oncology
DX: C90.00 Multiple myeloma not having achieved remission (principal)
CPT/HCPCS: 36591; 80053; 82784; 83883; 84165; 85025

== ENCOUNTER 2024-05-27 00:27 | Outpatient (CLI) | payer BC, SELFPAY ==
--- NOTE | 2024-05-27 12:30 | DI.US_ITS ---
APPROVED REPORT EXAM: Comprehensive 2D, Doppler, and color-flow Echocardiogram Patient Location: Out-Patient Clerical Stock Inspector: Sathya Johnson RDCS (AE) Conclusion Normal left ventricular wall thickness and chamber size. Septal motion is consistent with prior card iac surgery. There is mild generalized hypokinesis with an EF of 45% Normal right ventricular size and function Mildly enlarged left atrium. Normal right atrial size Trileaflet aortic valve with mild regurgitation There is a prior mitral valve repair. There is trace mitral regurgitation Trace to mild tricuspid regurgitation. Right ventricular systolic pressure could not be estimated Very mildly dilated ascending aorta 3.47 cm Wall motion Left Ventricle The left ventricle is normal size. Left ventricular systolic function is mildly decreased. There is n ormal left ventricular wall thickness. There is global hypokinesis of the left ventricle. Paradoxical septal motion consistent with post-operative state. There is no ventricular septal defect visualized . LVEF is 45%. Right Ventricle The right ventricle is normal size. Right ventricular systolic function is grossly normal. Atria Left atrium is mildly dilated. The right atrium size is normal. The interatrial septum is intact with no evidence for an atrial septal defect. Aortic Valve The aortic valve is normal in structure. Aortic valve is trileaflet. There is no aortic valvular sten osis. Mild aortic regurgitation. Mitral Valve S/P mitral valve repair. Trace mitral regurgitation. Tricuspid Valve The tricuspid valve is normal in structure. There is no tricuspid valve stenosis. Trace to mild tricu spid regurgitation. Pulmonic Valve The pulmonary valve is normal in structure. There is no pulmonic valvular stenosis. Moderate pulmonic regurgitation. Great Vessels The aortic root is normal in size. The ascending aorta is normal in size. Aortic arch is normal in ca liber. IVC is normal in size and collapses >50% with inspiration. Pericardium There is no pericardial effusion. 2D Dimensions IVSD d PLAX 1.01 cm M: 0.6-1.2 Ao Root d 3.36 cm M: 3.1 - 3.7 LVPW d PLAX 0.98 cm M: 0.6 - 1.2 Ao Asc Diam d 3.47 cm M: 2.6 - 3.4 LVID d PLAX 5.73 cm M: 4.2 - 5.8 LVDs 4.42 cm M: 2.5 - 4.0 LV EF Teichholz 45.4 % FS 22.93 % LV EDV (Teich) 161.9 mL LV ESV (Teich) 88.4 mL Stroke Vol Index (Teich) 34.82 Auto EF LV EDV A4C 175.0 mL LV EDV A2C 126.9 mL LV EDV BP 155.3 mL LV ESV A4C 99.0 mL LV ESV A2C 70.4 mL LV ESV BP 85.0 mL LVEF(%) A4C 43.4 % LVEF(%) A2C 44.5 % LVEF(%) BP 45.2 % LV SV A4C 76.0 ml LV SV A2C 56.5 ml LV SV BP 70.3 ml LV CO A4C 4.9 L/min LV CO A2C 4.6 L/min LV CO BP 4.8 L/min HR A4C 64.49 BPM HR A2C 81.45 BPM LV EDV Index (BP) LA Volume LA Length A4C 4.7 cm LA Length A2C 4.5 cm LA Area A4C s 16.13 cm2 LA Area A2C s 19.93 cm2 LA Vol A4C A-L 47.02 mL LA Vol A2C A-L 74.18 mL LA Vol Biplane A-L 60.0 mL LA Vol/BSA A4C A-L LA Vol/BSA A2C A-L LA Vol/BSA BP A-L 28.5 mL/m2 LA Vol A4C MOD 44.4 mL LA Vol A2C MOD 72.2 mL LA Vol BP MOD 56.7 mL RA Volume RA Area A4C 10.0 cm2 RA ESV A4C (A-L) 22.8mL RA Vol/BSA A4C A-L RA Length A4C 3.7 cm RA ESV A4C (MOD) 19.6mL LV Diastology MV E' medial 0.047 (>0.07 m/s) MV E Vmax 0.97 (0.4-1.3 m/s) MV E/E' MED 20.58 (<14) MV A Vmax 1.05 (0.4-1.3 m/s) MV E' lateral 0.069 (>0.1 m/s) E/A Ratio 0.9 MV E/E' LAT 14.16 (<14) MV E' Average 0.058 m/s MV E/E'(average) 16.77 Aortic Valve AoV Vmax 0.95 m/s LVOT Vmax 0.81 m/s AoV Peak Grad 3.6 mmHg LVOT Peak Grad 2.6 mmHg AoV Area (Vmax) 2.85 cm2 LVOT VTI 0.146 m AoV VTI 0.198 m LVOT Mean Grad 1.5 mmHg AoV Mean Rj. 0.69 m/s LVOT SV 48.97 mL AoV Mean Grad 2.2 mmHg LVOT Diam s 2.05 cm AoV Area (VTI) 2.47 cm2 AV Regurg Peak Gr. 3.64 mmHg Velocity Ratio 0.85 Mitral Valve MV DT 368 (160-240 msec) MV Vmax TIPS 1.22 m/s MV Mean Grad 2.9 (<2mmHg) MV VTI 0.449 m Pulmonary Valve PV Vmax 1.06 (0.5-1.5 m/s) RVOT Vmax 0.51 m/s PV Peak Grad 4.5 mmHg RVOT Peak Gr. 1.0 mmHg PV Mean Rj 0.62 m/s RVOT VTI 0.119 m PV Mean Grad 1.9 mmHg RVOT Mean Gr. 0.7 mmHg
== END 2024-05-27 00:47 ==
LOC: DI 00:27
PROVIDERS: PCP Family Medicine; Visit Provider Family Medicine
DX: I50.22 Chronic systolic (congestive) heart failure (principal); I35.1 Nonrheumatic aortic (valve) insufficiency; I36.1 Nonrheumatic tricuspid (valve) insufficiency
CPT/HCPCS: 93306

== ENCOUNTER 2024-06-22 04:17 | Outpatient (RCR) | payer BC, SELFPAY ==
[2024-06-22] MEDS: Normal Saline Flush 10 ML SYR IVP (09:02)
[2024-06-22 09:29] LABS: Abs Immature Grans 0.01 10^3/uL (0.0-0.06); Absolute Basophil Count 0.09 10^3/uL (0.0-0.2); Absolute Eosinophil Count 0.05 10^3/uL (0.0-0.7); Absolute Lymphocyte Count 1.52 10^3/uL (1.2-3.4); Absolute Neutrophil Count 1.69 10^3/uL (1.2-6.7); Basophils % 2.2 %; Eosinophils % 1.2 %; HGB 13.6 g/dL (13.5-17.5); Immature Grans % 0.2 %; Lymphocytes % 36.5 %; MCV 88 fL (80-95); MPV 9.9 fL (8.0-11.0); Monocytes % 19.2 %; Neutrophils % 40.7 %; Platelet Count 161 10^3/uL (130-400); RBC 4.53 10^6/uL (4.36-5.78); RDW 14.1 % (11.8-14.1); WBC 4.16 10^3/uL (4.4-10.8)
[2024-06-22 10:00] LABS: ALT 25 U/L (16-63); AST 15 U/L (15-37); Albumin 3.2 g/dL (3.4-5.0); Alkaline Phosphatase 96 U/L (46-116); Anion Gap 10.2 mmol/L (3-11); BUN 14 mg/dL (7-18); Bilirubin, Total 0.6 mg/dL (0.2-1.0); CO2 26.8 mmol/L (21.0-32.0); CREATININE 0.8 mg/dL (0.70-1.30); Calcium 9.2 mg/dL (8.5-10.1); Chloride 104 mmol/L (98-107); Estimated GFR 99.44 (mL/min/1.73m2); Glucose 124 mg/dL (74-106); Sodium 141 mmol/L (136-145); Total Protein 6.2 g/dL (6.4-8.2)
[2024-06-23 11:07] LABS: IgA <13 mg/dL (85-499); IgG 628 mg/dL (610-1616); IgM <12 mg/dL (35-242); Kappa Free Light Chain 0.32 mg/dL (0.33-1.94); Lambda Free Light Chain <0.44 mg/dL (0.57-2.63)
[2024-06-23 14:06] LABS: Albumin 64.1 % (55.8-66.1); Albumin g/dL 3.7 g/dL (3.6-5.2); Total Protein 5.8 g/dL (6.3-8.2)
== END 2024-07-11 23:59 | disposition home or self-care (01) ==
LOC: INF 04:17
PROVIDERS: Nurse Practitioner Adult Health; PCP Family Medicine; Visit Provider Internal Medicine Hematology & Oncology
DX: C90.00 Multiple myeloma not having achieved remission (principal)
CPT/HCPCS: 36591; 80053; 82784; 83883; 84165; 85025

== ENCOUNTER 2024-07-20 01:45 | Outpatient (RCR) | payer BC, SELFPAY ==
[2024-07-20] MEDS: Normal Saline Flush 10 ML SYR IVP (08:58)
[2024-07-20 09:24] LABS: Abs Immature Grans 0.01 10^3/uL (0.0-0.06); Absolute Basophil Count 0.08 10^3/uL (0.0-0.2); Absolute Eosinophil Count 0.02 10^3/uL (0.0-0.7); Absolute Lymphocyte Count 1.38 10^3/uL (1.2-3.4); Absolute Monocyte Count 0.76 10^3/uL (0.1-0.8); Absolute Neutrophil Count 1.54 10^3/uL (1.2-6.7); Basophils % 2.1 %; Eosinophils % 0.5 %; HCT 38.9 % (40.0-50.0); HGB 12.9 g/dL (13.5-17.5); Immature Grans % 0.3 %; Lymphocytes % 36.4 %; MCH 30.1 pg (27.0-33.0); MCHC 33.2 % (32.0-36.0); MCV 91 fL (80-95); MPV 9.8 fL (8.0-11.0); Monocytes % 20.1 %; Neutrophils % 40.6 %; Platelet Count 153 10^3/uL (130-400); RBC 4.28 10^6/uL (4.36-5.78); RDW 14.1 % (11.8-14.1); RDW-SD 46.6 fL; WBC 3.79 10^3/uL (4.4-10.8)
[2024-07-20 09:46] LABS: ALT 24 U/L (16-63); AST 20 U/L (15-37); Albumin 3.3 g/dL (3.4-5.0); Alkaline Phosphatase 86 U/L (46-116); Anion Gap 7.4 mmol/L (3-11); BUN 14 mg/dL (7-18); Bilirubin, Total 0.7 mg/dL (0.2-1.0); CO2 26.6 mmol/L (21.0-32.0); Calcium 9.3 mg/dL (8.5-10.1); Chloride 107 mmol/L (98-107); Estimated GFR 84.57 (mL/min/1.73m2); Glucose 107 mg/dL (74-106); Potassium 4.5 mmol/L (3.5-5.1); Sodium 141 mmol/L (136-145); Total Protein 6.1 g/dL (6.4-8.2)
[2024-07-21 10:09] LABS: IgA <13 mg/dL (85-499); IgG 577 mg/dL (610-1616); IgM <12 mg/dL (35-242); Kappa Free Light Chain 0.23 mg/dL (0.33-1.94); Lambda Free Light Chain <0.44 mg/dL (0.57-2.63)
[2024-07-21 14:24] LABS: Albumin 64.7 % (55.8-66.1); Albumin g/dL 3.8 g/dL (3.6-5.2); Total Protein 5.8 g/dL (6.3-8.2)
== END 2024-08-10 23:59 | disposition home or self-care (01) ==
LOC: INF 01:45
PROVIDERS: Nurse Practitioner Adult Health; PCP Family Medicine; Visit Provider Internal Medicine Hematology & Oncology
DX: C90.00 Multiple myeloma not having achieved remission (principal)
CPT/HCPCS: 36591; 80053; 82784; 83883; 84165; 85025

== ENCOUNTER 2024-09-14 01:59 | Outpatient (RCR) | payer BC, SELFPAY ==
[2024-09-14] MEDS: Normal Saline Flush 10 ML SYR IVP (07:54)
[2024-09-14 08:15] LABS: Abs Immature Grans 0.01 10^3/uL (0.0-0.06); Absolute Basophil Count 0.04 10^3/uL (0.0-0.2); Absolute Eosinophil Count 0.07 10^3/uL (0.0-0.7); Absolute Lymphocyte Count 1.33 10^3/uL (1.2-3.4); Absolute Monocyte Count 0.64 10^3/uL (0.1-0.8); Absolute Neutrophil Count 1.55 10^3/uL (1.2-6.7); Basophils % 1.1 %; Eosinophils % 1.9 %; HCT 41.1 % (40.0-50.0); HGB 14.1 g/dL (13.5-17.5); Immature Grans % 0.3 %; Lymphocytes % 36.5 %; MCH 30.7 pg (27.0-33.0); MCHC 34.3 % (32.0-36.0); MCV 89 fL (80-95); MPV 9.9 fL (8.0-11.0); Monocytes % 17.6 %; Neutrophils % 42.6 %; Platelet Count 163 10^3/uL (130-400); RDW 13.5 % (11.8-14.1); RDW-SD 44.1 fL; WBC 3.64 10^3/uL (4.4-10.8)
[2024-09-14 08:43] LABS: ALT 28 U/L (16-63); AST 17 U/L (15-37); Albumin 3.5 g/dL (3.4-5.0); Alkaline Phosphatase 104 U/L (46-116); Anion Gap 7.6 mmol/L (3-11); BUN 15 mg/dL (7-18); Bilirubin, Total 0.5 mg/dL (0.2-1.0); CO2 28.4 mmol/L (21.0-32.0); CREATININE 0.9 mg/dL (0.70-1.30); Calcium 9.1 mg/dL (8.5-10.1); Chloride 105 mmol/L (98-107); Estimated GFR 95.97 (mL/min/1.73m2); Glucose 135 mg/dL (74-106); Sodium 141 mmol/L (136-145); Total Protein 6.3 g/dL (6.4-8.2)
[2024-09-15 09:54] LABS: IgA <13 mg/dL (85-499); IgG 603 mg/dL (610-1616); IgM <12 mg/dL (35-242); Kappa Free Light Chain 0.34 mg/dL (0.33-1.94); Lambda Free Light Chain <0.44 mg/dL (0.57-2.63)
[2024-09-15 15:13] LABS: Albumin 64.4 % (55.8-66.1); Albumin g/dL 3.8 g/dL (3.6-5.2); Total Protein 5.9 g/dL (6.3-8.2)
== END 2024-10-10 23:59 | disposition home or self-care (01) ==
LOC: INF 01:59
PROVIDERS: Nurse Practitioner Adult Health; PCP Family Medicine; Visit Provider Internal Medicine Hematology & Oncology
DX: C90.00 Multiple myeloma not having achieved remission (principal); Z45.2 Encounter for adjustment and management of vascular access device
CPT/HCPCS: 36591; 80053; 82784; 83883; 84165; 85025

== ENCOUNTER 2024-11-09 03:20 | Outpatient (RCR) | payer BC, SELFPAY ==
[2024-10-12 08:26] LABS: Abs Immature Grans 0.01 10^3/uL (0.0-0.06); HCT 42.7 % (40.0-50.0); HGB 14.5 g/dL (13.5-17.5); Immature Grans % 0.2 %; MCH 30.5 pg (27.0-33.0); MCHC 34.0 % (32.0-36.0); MCV 90 fL (80-95); MPV 10.1 fL (8.0-11.0); Platelet Count 169 10^3/uL (130-400); RBC 4.75 10^6/uL (4.36-5.78); RDW 12.8 % (11.8-14.1); RDW-SD 42.3 fL; WBC 4.04 10^3/uL (4.4-10.8)
[2024-10-12] MEDS: Normal Saline Flush 10 ML SYR IVP (09:14)
[2024-10-12 09:54] LABS: ALT 33 U/L (16-63); AST 19 U/L (15-37); Albumin 3.6 g/dL (3.4-5.0); Alkaline Phosphatase 96 U/L (46-116); Anion Gap 9.3 mmol/L (3-11); BUN 12 mg/dL (7-18); Bilirubin, Total 0.6 mg/dL (0.2-1.0); CO2 26.7 mmol/L (21.0-32.0); Calcium 9.3 mg/dL (8.5-10.1); Chloride 105 mmol/L (98-107); Estimated GFR 95.97 (mL/min/1.73m2); Glucose 115 mg/dL (74-106); Potassium 3.7 mmol/L (3.5-5.1); Sodium 141 mmol/L (136-145); Total Protein 6.5 g/dL (6.4-8.2)
[2024-10-12 17:39] LABS: Total Protein 6.1 g/dL (6.3-8.2)
[2024-10-13 10:47] LABS: Kappa Free Light Chain 0.33 mg/dL (0.33-1.94); Lambda Free Light Chain <0.44 mg/dL (0.57-2.63)
[2024-10-13 13:55] LABS: Albumin 63.7 % (55.8-66.1); Albumin g/dL 3.9 g/dL (3.6-5.2); Alpha 1 g/dL 0.30 g/dL (0.15-0.40); Alpha 2 g/dL 0.60 g/dL (0.50-1.00); Beta g/dL 0.70 g/dL (0.60-1.20); Gamma g/dL 0.60 g/dL (0.60-1.60)
[2024-11-09] MEDS: Normal Saline Flush 10 ML SYR IVP (08:55)
[2024-11-09 09:15] LABS: Abs Immature Grans 0.01 10^3/uL (0.0-0.06); HCT 41.3 % (40.0-50.0); HGB 14.2 g/dL (13.5-17.5); Immature Grans % 0.2 %; MCH 30.3 pg (27.0-33.0); MCHC 34.4 % (32.0-36.0); MCV 88 fL (80-95); MPV 9.8 fL (8.0-11.0); Platelet Count 179 10^3/uL (130-400); RBC 4.69 10^6/uL (4.36-5.78); RDW 12.9 % (11.8-14.1); RDW-SD 41.2 fL; WBC 4.81 10^3/uL (4.4-10.8)
[2024-11-09 09:31] LABS: ALT 28 U/L (16-63); AST 16 U/L (15-37); Albumin 3.6 g/dL (3.4-5.0); Alkaline Phosphatase 94 U/L (46-116); Anion Gap 6.5 mmol/L (3-11); BUN 17 mg/dL (7-18); Bilirubin, Total 0.7 mg/dL (0.2-1.0); CO2 28.5 mmol/L (21.0-32.0); Calcium 9.2 mg/dL (8.5-10.1); Chloride 105 mmol/L (98-107); Estimated GFR 99.44 (mL/min/1.73m2); Glucose 120 mg/dL (74-106); Potassium 4.0 mmol/L (3.5-5.1); Sodium 140 mmol/L (136-145); Total Protein 6.3 g/dL (6.4-8.2)
[2024-11-09 17:34] LABS: Total Protein 5.9 g/dL (6.3-8.2)
[2024-11-10 10:10] LABS: Kappa Free Light Chain 0.33 mg/dL (0.33-1.94); Lambda Free Light Chain <0.44 mg/dL (0.57-2.63)
[2024-11-10 12:39] LABS: Albumin 66.3 % (55.8-66.1); Albumin g/dL 3.9 g/dL (3.6-5.2); Alpha 1 g/dL 0.30 g/dL (0.15-0.40); Alpha 2 g/dL 0.60 g/dL (0.50-1.00); Beta g/dL 0.60 g/dL (0.60-1.20); Gamma g/dL 0.50 g/dL (0.60-1.60)
== END 2024-11-10 23:59 | disposition home or self-care (01) ==
LOC: INF 03:20
PROVIDERS: PCP Family Medicine; Visit Provider Internal Medicine Hematology & Oncology
DX: C90.00 Multiple myeloma not having achieved remission (principal); Z45.2 Encounter for adjustment and management of vascular access device
CPT/HCPCS: 36591; 80053; 82784; 96523; 83883; 84165; 85025

== ENCOUNTER 2024-12-07 01:58 | Outpatient (RCR) | payer BC, SELFPAY ==
[2024-12-07] MEDS: Normal Saline Flush 10 ML SYR IVP (09:34)
[2024-12-07 09:47] LABS: Abs Immature Grans 0.02 10^3/uL (0.0-0.06); HCT 41.8 % (40.0-50.0); HGB 14.4 g/dL (13.5-17.5); Immature Grans % 0.4 %; MCH 30.6 pg (27.0-33.0); MCHC 34.4 % (32.0-36.0); MCV 89 fL (80-95); MPV 10.2 fL (8.0-11.0); Platelet Count 166 10^3/uL (130-400); RBC 4.70 10^6/uL (4.36-5.78); RDW 13.1 % (11.8-14.1); RDW-SD 42.8 fL; WBC 4.91 10^3/uL (4.4-10.8)
[2024-12-07 10:19] LABS: ALT 22 U/L (16-63); AST 18 U/L (15-37); Albumin 3.6 g/dL (3.4-5.0); Alkaline Phosphatase 86 U/L (46-116); Anion Gap 7.8 mmol/L (3-11); BUN 12 mg/dL (7-18); Bilirubin, Total 0.7 mg/dL (0.2-1.0); CO2 28.2 mmol/L (21.0-32.0); Calcium 9.2 mg/dL (8.5-10.1); Chloride 106 mmol/L (98-107); Estimated GFR 99.44 (mL/min/1.73m2); Glucose 123 mg/dL (74-106); Potassium 3.7 mmol/L (3.5-5.1); Sodium 142 mmol/L (136-145); Total Protein 6.2 g/dL (6.4-8.2)
[2024-12-07 10:39] LABS: Ferritin 80 ng/mL (26-388); TSH (W/Ref FT4) 0.62 uIU/mL (0.36-3.74)
[2024-12-07 17:24] LABS: Total Protein 6.0 g/dL (6.3-8.2)
[2024-12-07 18:09] LABS: PSA, Screening 0.8 ng/mL (<=4.5)
[2024-12-08 10:56] LABS: Kappa Free Light Chain 0.39 mg/dL (0.33-1.94); Lambda Free Light Chain <0.44 mg/dL (0.57-2.63)
[2024-12-08 14:41] LABS: Albumin 67.6 % (55.8-66.1); Albumin g/dL 4.1 g/dL (3.6-5.2); Alpha 1 g/dL 0.30 g/dL (0.15-0.40); Alpha 2 g/dL 0.60 g/dL (0.50-1.00); Beta g/dL 0.60 g/dL (0.60-1.20); Gamma g/dL 0.40 g/dL (0.60-1.60)
== END 2024-12-11 23:59 | disposition home or self-care (01) ==
LOC: INF 01:58
PROVIDERS: Nurse Practitioner Adult Health; PCP Family Medicine; Visit Provider Internal Medicine Hematology & Oncology
DX: C90.00 Multiple myeloma not having achieved remission (principal); Z12.5 Encounter for screening for malignant neoplasm of prostate
CPT/HCPCS: 36591; 80053; 82784; 84153; 82728; 83883; 84165; 84443; 85025

== ENCOUNTER 2025-01-04 03:53 | Outpatient (RCR) | payer BC, SELFPAY ==
[2025-01-04] MEDS: Normal Saline Flush 10 ML SYR IVP (08:23)
[2025-01-04 08:40] LABS: Abs Immature Grans 0.01 10^3/uL (0.0-0.06); HCT 41.3 % (40.0-50.0); HGB 14.1 g/dL (13.5-17.5); Immature Grans % 0.3 %; MCH 30.3 pg (27.0-33.0); MCHC 34.1 % (32.0-36.0); MCV 89 fL (80-95); MPV 9.6 fL (8.0-11.0); Platelet Count 168 10^3/uL (130-400); RBC 4.66 10^6/uL (4.36-5.78); RDW 13.3 % (11.8-14.1); RDW-SD 43.4 fL; WBC 4.00 10^3/uL (4.4-10.8)
[2025-01-04 09:04] LABS: ALT 34 U/L (16-63); AST 21 U/L (15-37); Albumin 3.6 g/dL (3.4-5.0); Alkaline Phosphatase 96 U/L (46-116); Anion Gap 7.9 mmol/L (3-11); BUN 12 mg/dL (7-18); Bilirubin, Total 0.6 mg/dL (0.2-1.0); CO2 28.1 mmol/L (21.0-32.0); Calcium 9.4 mg/dL (8.5-10.1); Chloride 106 mmol/L (98-107); Glucose 91 mg/dL (74-106); Potassium 4.0 mmol/L (3.5-5.1); Sodium 142 mmol/L (136-145); Total Protein 6.2 g/dL (6.4-8.2)
[2025-01-05 09:02] LABS: Kappa Free Light Chain 0.21 mg/dL (0.33-1.94); Lambda Free Light Chain <0.44 mg/dL (0.57-2.63)
[2025-01-05 13:53] LABS: Albumin 68.2 % (55.8-66.1); Albumin g/dL 4.1 g/dL (3.6-5.2); Alpha 1 g/dL 0.30 g/dL (0.15-0.40); Alpha 2 g/dL 0.60 g/dL (0.50-1.00); Beta g/dL 0.70 g/dL (0.60-1.20); Gamma g/dL 0.40 g/dL (0.60-1.60); Total Protein 6.0 g/dL (6.3-8.2)
== END 2025-01-10 23:59 | disposition home or self-care (01) ==
LOC: INF 03:53
PROVIDERS: Nurse Practitioner Adult Health; PCP Family Medicine; Visit Provider Internal Medicine Hematology & Oncology
DX: Z45.2 Encounter for adjustment and management of vascular access device (principal); C90.00 Multiple myeloma not having achieved remission
CPT/HCPCS: 36591; 80053; 82784; 83883; 84165; 85025

== ENCOUNTER 2025-02-01 01:59 | Outpatient (RCR) | payer BC, SELFPAY ==
[2025-02-01 08:43] LABS: Abs Immature Grans 0.01 10^3/uL (0.0-0.06); HCT 39.9 % (40.0-50.0); HGB 13.3 g/dL (13.5-17.5); Immature Grans % 0.2 %; MCH 29.2 pg (27.0-33.0); MCHC 33.3 % (32.0-36.0); MCV 88 fL (80-95); MPV 9.7 fL (8.0-11.0); Platelet Count 166 10^3/uL (130-400); RBC 4.55 10^6/uL (4.36-5.78); RDW 12.9 % (11.8-14.1); RDW-SD 41.2 fL; WBC 4.63 10^3/uL (4.4-10.8)
[2025-02-01] MEDS: Normal Saline Flush 10 ML SYR IVP (08:52)
[2025-02-01 09:04] LABS: ALT 23 U/L (16-63); AST 17 U/L (15-37); Albumin 3.4 g/dL (3.4-5.0); Alkaline Phosphatase 96 U/L (46-116); Anion Gap 7.0 mmol/L (3-11); BUN 14 mg/dL (7-18); Bilirubin, Total 0.7 mg/dL (0.2-1.0); CO2 28.0 mmol/L (21.0-32.0); Calcium 8.8 mg/dL (8.5-10.1); Chloride 104 mmol/L (98-107); Estimated GFR 98.83 (mL/min/1.73m2); Glucose 112 mg/dL (74-106); Potassium 3.9 mmol/L (3.5-5.1); Sodium 139 mmol/L (136-145); Total Protein 6.0 g/dL (6.4-8.2)
[2025-02-02 09:58] LABS: Kappa Free Light Chain 0.22 mg/dL (0.33-1.94); Lambda Free Light Chain <0.44 mg/dL (0.57-2.63)
[2025-02-02 13:03] LABS: Albumin 68.0 % (55.8-66.1); Albumin g/dL 4.0 g/dL (3.6-5.2); Alpha 1 g/dL 0.30 g/dL (0.15-0.40); Alpha 2 g/dL 0.60 g/dL (0.50-1.00); Beta g/dL 0.70 g/dL (0.60-1.20); Gamma g/dL 0.30 g/dL (0.60-1.60); Total Protein 5.9 g/dL (6.3-8.2)
== END 2025-02-10 23:59 | disposition home or self-care (01) ==
LOC: INF 01:59
PROVIDERS: Nurse Practitioner Adult Health; PCP Family Medicine; Visit Provider Internal Medicine Hematology & Oncology
DX: Z45.2 Encounter for adjustment and management of vascular access device (principal); C90.00 Multiple myeloma not having achieved remission
CPT/HCPCS: 36591; 80053; 82784; 83883; 84165; 85025

== ENCOUNTER 2025-03-01 03:19 | Outpatient (RCR) | payer BC, SELFPAY ==
[2025-03-01 08:45] LABS: Abs Immature Grans 0.02 10^3/uL (0.0-0.06); HCT 42.0 % (40.0-50.0); HGB 14.4 g/dL (13.5-17.5); Immature Grans % 0.4 %; MCH 29.8 pg (27.0-33.0); MCHC 34.3 % (32.0-36.0); MCV 87 fL (80-95); MPV 9.4 fL (8.0-11.0); Platelet Count 147 10^3/uL (130-400); RBC 4.83 10^6/uL (4.36-5.78); RDW 12.7 % (11.8-14.1); RDW-SD 40.6 fL; WBC 5.47 10^3/uL (4.4-10.8)
[2025-03-01 09:07] LABS: ALT 17 U/L (10-49); AST 17 U/L (<34); Albumin 4.3 g/dL (3.4-5.0); Alkaline Phosphatase 103 U/L (46-116); Anion Gap 7.2 mmol/L (3-11); BUN 13 mg/dL (9-23); Bilirubin, Total 0.60 mg/dL (0.2-1.2); CO2 26.8 mmol/L (20.0-31.0); Calcium 9.6 mg/dL (8.3-10.6); Chloride 110 mmol/L (98-107); Glucose 112 mg/dL (74-106); Potassium 4.0 mmol/L (3.5-5.1); Sodium 144 mmol/L (136-145); Total Protein 6.2 g/dL (5.7-8.2)
[2025-03-01] MEDS: Normal Saline Flush 10 ML SYR IVP (09:51)
[2025-03-02 10:15] LABS: Kappa Free Light Chain 0.32 mg/dL (0.33-1.94); Lambda Free Light Chain <0.44 mg/dL (0.57-2.63)
[2025-03-02 12:12] LABS: Albumin 67.4 % (55.8-66.1); Albumin g/dL 4.1 g/dL (3.6-5.2); Alpha 1 g/dL 0.30 g/dL (0.15-0.40); Alpha 2 g/dL 0.60 g/dL (0.50-1.00); Beta g/dL 0.70 g/dL (0.60-1.20); Gamma g/dL 0.30 g/dL (0.60-1.60); Total Protein 6.1 g/dL (6.3-8.2)
== END 2025-03-12 23:59 | disposition home or self-care (01) ==
LOC: INF 03:19
PROVIDERS: Nurse Practitioner Adult Health; PCP Family Medicine; Visit Provider Internal Medicine Hematology & Oncology
DX: Z45.2 Encounter for adjustment and management of vascular access device (principal); C90.00 Multiple myeloma not having achieved remission
CPT/HCPCS: 36591; 80053; 82784; 83883; 84165; 85025

== ENCOUNTER 2025-03-29 00:34 | Outpatient (RCR) | payer BC, SELFPAY ==
[2025-03-29 08:55] LABS: Abs Immature Grans 0.01 10^3/uL (0.0-0.06); HCT 42.2 % (40.0-50.0); HGB 14.4 g/dL (13.5-17.5); Immature Grans % 0.2 %; MCH 29.9 pg (27.0-33.0); MCHC 34.1 % (32.0-36.0); MCV 88 fL (80-95); MPV 10.1 fL (8.0-11.0); Platelet Count 164 10^3/uL (130-400); RBC 4.82 10^6/uL (4.36-5.78); RDW 13.1 % (11.8-14.1); RDW-SD 41.7 fL; WBC 4.21 10^3/uL (4.4-10.8)
[2025-03-29] MEDS: Normal Saline Flush 10 ML SYR IVP (09:06)
[2025-03-29 09:21] LABS: ALT 17 U/L (10-49); AST 18 U/L (<34); Albumin 4.1 g/dL (3.2-5.0); Alkaline Phosphatase 89 U/L (46-116); Anion Gap 8.7 mmol/L (3-11); BUN 10 mg/dL (9-23); Bilirubin, Total 0.7 mg/dL (0.2-1.2); CO2 26.3 mmol/L (20.0-31.0); Calcium 9.4 mg/dL (8.3-10.6); Chloride 108 mmol/L (98-107); Glucose 141 mg/dL (74-106); Potassium 3.9 mmol/L (3.5-5.1); Sodium 143 mmol/L (136-145); Total Protein 6.2 g/dL (5.7-8.2)
[2025-03-30 11:27] LABS: Kappa Free Light Chain 0.40 mg/dL (0.33-1.94); Lambda Free Light Chain <0.44 mg/dL (0.57-2.63)
[2025-03-30 12:33] LABS: Albumin 68.1 % (55.8-66.1); Albumin g/dL 4.0 g/dL (3.6-5.2); Alpha 1 g/dL 0.30 g/dL (0.15-0.40); Alpha 2 g/dL 0.60 g/dL (0.50-1.00); Beta g/dL 0.60 g/dL (0.60-1.20); Gamma g/dL 0.30 g/dL (0.60-1.60); Total Protein 5.9 g/dL (6.3-8.2)
== END 2025-04-12 23:59 | disposition home or self-care (01) ==
LOC: INF 00:34
PROVIDERS: Nurse Practitioner Adult Health; PCP Family Medicine; Visit Provider Internal Medicine Hematology & Oncology
DX: Z45.2 Encounter for adjustment and management of vascular access device (principal); C90.00 Multiple myeloma not having achieved remission
CPT/HCPCS: 36591; 80053; 82784; 83883; 84165; 85025